=== PATIENT | female | born 1955 | race African-American/Black ===

== ENCOUNTER 2017-11-05 17:23 | Inpatient (IN) | payer MEDICARE ==
[~2017-11-05 17:23] MED LIST: ISOVUE-370 76%-LOCM 1 ML ONE
[2017-11-05] MEDS ORDERED: Dexamethasone 4 MG TAB ONE ×2 (18:42→18:43)
[2017-11-05] MEDS ORDERED: cefTRIAXone\\ROCEPHIN 2 GM in Sodium Chloride 0.9% 100 ML IVPB SCH (18:45)
--- NOTE | 2017-11-05 19:00 | RAD ---
PA AND LATERAL VIEWS CHEST 11/05/17 HISTORY: Cough. Wheezing. FINDINGS: Comparison made with exam of 03/14/15. The heart size is normal. There are patchy opacities in the right upper and left lower lung bones. No pneumothoraces or pleural effusions are seen. IMPRESSION: Findings suspicious for pneumonia. A followup exam after course of antibiotics is recommended. POS: [facility]
[2017-11-05 19:24] LABS: #Eosinphils 0.1 thou/uL (0.0-0.7); #Lymphocytes 4.6 thou/uL (1.20-3.40); #Monocytes 1.2 thou/uL (0.11-0.59); #Neutrophils 5.5 thou/uL (1.40-6.50); %Basophils 0.4 % (0.0-1.0); %Eosinophils 0.6 % (0.0-10.0); %Lymphocytes 40.4 % (21.0-51.0); %Monocytes 10.3 % (0.0-10.0); %Neutrophils 48.4 % (42.0-75.0); Hemoglobin 15.9 g/dL (12.0-16.0); Mean Corpuscular HGB CONC 33.4 g/dL (32.0-36.0); Mean Corpuscular Hemoglobin 30.8 pg (27.0-31.0); Mean Corpuscular Volume 92.2 fl (81.0-99.0); Mean Platelet Volume 7.2 fL (7.4-10.4); Platelet Count 519 thou/uL (130-400); RBC Distribution Width 12.9 % (11.5-14.5); Red Blood Cell (RBC) Count 5.17 mill/uL (4.20-5.40); White Blood Cell (WBC) Count 11.3 thou/uL (4.8-10.8)
[2017-11-05 19:35] LABS: ALT (SGPT) 41 U/L (8-55); AST (SGOT) 30 U/L (5-34); Albumin 4.1 g/dL (3.5-5.0); Alkaline Phosphatase 110 U/L (40-150); Anion Gap 18 mmol/L (10-20); BUN (Urea Nitrogen) 6 mg/dL (9.8-20.1); Bilirubin, Total 0.3 mg/dL (0.2-1.2); Calc. Creatinine Clearance 0 mL/min (70-130); Calcium 10.9 mg/dL (7.8-10.44); Carbon Dioxide 20 mmol/L (22-29); Chloride 103 mmol/L (98-107); Estimated GFR-MDRD 85; Globulin 5.2 g/dL (2.4-3.5); Glucose 143 mg/dL (70-105); Potassium 5.3 mmol/L (3.5-5.1); Protein, Total 9.3 g/dL (6.0-8.3); Sodium 136 mmol/L (136-145)
[2017-11-05 19:41] LABS: Band 9 % (5-11); Eosinophils 1 % (0-10); Lymphocytes 52 % (21-51); MDiff Complete? YES; Monocytes 8 % (0-10); Neutrophil 29 % (42-75); PLT Morphology Comment Appears Increased; RBC Morphology Normal
--- NOTE | 2017-11-05 22:07 | CT ---
CT CHEST WITH IV CONTRAST 11/05/17 HISTORY: Dyspnea, cough, sputum and wheezing. FINDINGS: There is mediastinal lymphadenopathy. There is atelectatic changes in the right upper lobe with obstr uctive process in the right upper lobe bronchus. No pleural or pericardial effusions seen. There is p atchy ground glass infiltrates in the left lower lobe. No pneumothoraces are seen. There are degener ative changes in the spine. Upper abdominal tomograms demonstrate fatty infiltration of the liver. Th ere is evidence of old granulomatous disease in the chest. IMPRESSION: 1. Right upper lobe atelectasis with occlusive process in the right upper lobe bronchus and med iastinal lymphadenopathy. Findings suspicious for malignancy. Bronchoscopy is recommended. 2. Patchy ground glass infiltrates in the left lower lobe. POS: [facility]
[2017-11-05] MEDS ORDERED: Azithromycin 500 MG in Sodium Chloride 0.9% 250 ML 250 ML IVPB SCH (22:30)
[2017-11-05] MEDS ORDERED: Nicotine 14 MG PATCH TOP SCH (22:30)
[2017-11-06] MEDS: Sodium Chloride 0.9% 1,000 ML IV SCH ×2 (00:49→17:50)
[2017-11-06] MEDS ORDERED: cefTRIAXone\\ROCEPHIN 1 GM in Sodium Chloride 0.9% 100 ML IVPB SCH (01:00)
[2017-11-06] MEDS ORDERED: Dextrose 5% in Water 1,000 ML IV PRN (01:33)
[2017-11-06] MEDS ORDERED: Dextrose 50% Abboject 50 ML SYRINGE SLOW IVP PRN (01:33)
[2017-11-06] MEDS: Guaifenesin DM 100-10/5 ML UDCUP PO PRN ×4 (04:00→23:11)
[2017-11-06 04:21] LABS: #Monocytes 0.1 thou/uL (0.11-0.59); #Neutrophils 8.2 thou/uL (1.40-6.50); %Basophils 0.1 % (0.0-1.0); %Eosinophils 0.4 % (0.0-10.0); %Lymphocytes 19.2 % (21.0-51.0); %Monocytes 1.2 % (0.0-10.0); %Neutrophils 79.1 % (42.0-75.0); Hemoglobin 13.5 g/dL (12.0-16.0); Mean Corpuscular HGB CONC 32.8 g/dL (32.0-36.0); Mean Corpuscular Hemoglobin 30.5 pg (27.0-31.0); Platelet Count 448 thou/uL (130-400); RBC Distribution Width 12.8 % (11.5-14.5); Red Blood Cell (RBC) Count 4.44 mill/uL (4.20-5.40); White Blood Cell (WBC) Count 10.3 thou/uL (4.8-10.8)
[2017-11-06 04:30] LABS: Anion Gap 15 mmol/L (10-20); BUN (Urea Nitrogen) 9 mg/dL (9.8-20.1); Calc. Creatinine Clearance 79 mL/min (70-130); Calcium 9.8 mg/dL (7.8-10.44); Carbon Dioxide 20 mmol/L (22-29); Chloride 103 mmol/L (98-107); Estimated GFR-MDRD 65; Glucose 415 mg/dL (70-105); Potassium 4.5 mmol/L (3.5-5.1); Sodium 133 mmol/L (136-145)
[2017-11-06] MEDS: glipiZIDE 5 MG TAB PO SCH ×2 (05:42→16:44)
[2017-11-06] MEDS: HumaLOG 300 UNITS/3 ML VIAL SC PRN ×2 (05:42→16:44)
--- NOTE | 2017-11-06 06:09 | PDOC.FM ---
- Subjective Subjective: Feeling ok this morning. She is still coughing up yellow/white sputum. She denies any blood streaking. She is requesting her home medications to help her sleep, otherwise no complaints or concerns. - Objective MAR Reviewed: Yes Vital Signs & Weight: Vital Signs (12 hours) Temp Pulse Resp BP Pulse Ox 11/06/17 04:40 98.3 F 114 H 17 145/86 H 97 11/06/17 03:37 95 11/05/17 23:45 98.7 F 109 H 18 131/87 95 Weight Weight 87.146 kg I&O: 11/04/17 11/05/17 11/06/17 06:59 06:59 06:59 Intake Total 1080 Balance 1080 Result Diagrams: 11/06/17 03:40 11/06/17 03:40 EKG Reviewed by me: Yes Radiology Reviewed by me: Yes <Maryan Cameron - Last Filed: 11/06/17 11:07> - Objective Vital Signs & Weight: Vital Signs (12 hours) Temp Pulse Resp BP BP Pulse Ox 11/06/17 20:00 98.5 F 122 H 17 143/84 H 93 L 11/06/17 18:34 123 H 16 99 11/06/17 16:00 98.1 F 124 H 18 138/82 96 11/06/17 15:49 121 H 16 11/06/17 12:20 118 H 117/80 11/06/17 11:50 97.2 F L 115 H 20 141/80 H 100 11/06/17 11:38 111 H 16 11/06/17 11:20 98.5 F 121 H 20 122/78 93 L Weight Weight 87.146 kg I&O: 11/05/17 11/06/17 11/07/17 06:59 06:59 06:59 Intake Total 1080 Balance 1080 Result Diagrams: 11/06/17 03:40 11/06/17 03:40 <Dominic Buckley - Last Filed: 11/06/17 21:23> Phys Exam - Physical Examination Constitutional: NAD HEENT: moist MMs diffuse wheezing and rhonchi, R>L tachycardic Gastrointestinal: soft, non-tender, no distention, positive bowel sounds Musculoskeletal: no edema Neurological: non-focal, moves all 4 limbs Psychiatric: normal affect, A&O x 3 Skin: normal turgor, cap refill <2 seconds <Maryan Cameron - Last Filed: 11/06/17 11:07> Dx/Plan (1) Pneumonia Code(s): J18.9 - PNEUMONIA, UNSPECIFIED ORGANISM Status: Acute (2) Diabetes Code(s): E11.9 - TYPE 2 DIABETES MELLITUS WITHOUT COMPLICATIONS Status: Acute (3) Hypertension Code(s): I10 - ESSENTIAL (PRIMARY) HYPERTENSION Status: Acute (4) HLD (hyperlipidemia) Code(s): E78.5 - HYPERLIPIDEMIA, UNSPECIFIED Status: Acute (5) Bipolar 1 disorder Code(s): F31.9 - BIPOLAR DISORDER, UNSPECIFIED Status: Acute - Plan Plan: 1. Pneumonia/Concern for occlusive process - Rocephin and azithromycin - Appreciate Dr. Ford's assistance - Continue IV fluids, antibiotics, duonebs scheduled/PRN and IV solumedrol - Flu neg - BCx pending 2. HTN - Home medications 3. Asymptomatic tachycardia - Will review records regarding prior workup 4. DM - Poorly controlled - Home medications - Mild SSI - Likely need to transition to insulin - Will check a1c - ACHS accuchecks 5. Bipolar d/o - Home medications 6. HLD - Home medications PPX: Lovenox <Maryan Cameron - Last Filed: 11/06/17 11:07> Attending Addendum - Attending Addendum I personally evaluated the patient and discussed the management with Dr. Cameron. I agree with and repeated the History, Examination, Assessment and Plan documented above with any addition or exceptions noted below. Patient s/p bronch with minor hemoptysis, no f/c, no cp/sob. She has diffuse wheezes and crackles but is moving good air. Continue nebs and antibiotics. Await biopsy. If improved in 1-2 days may d/c with appropriate follow up. <Dominic Buckley - Last Filed: 11/06/17 21:23>
[2017-11-06 06:58] LABS: Hemoglobin A1c 7.8 % (4.0-6.0)
--- NOTE | 2017-11-06 08:34 | HP-2 ---
DATE OF ADMISSION: 11/05/2017 DATE OF SERVICE: 11/06/2017 CODE STATUS: Full. ATTENDING: Dr. Keely Wade RESIDENT: Dr. Taylor Quan HISTORIAN: Patient. CHIEF COMPLAINT: Shortness of breath/cough. HISTORY OF PRESENT ILLNESS: A 62-year-old female who presents with shortness of breath and cough over the past 2 weeks. Associated symptoms include nasal congestion and difficulty breathing with walking. She states also that her cough is wet with sputum production of thick yellowish sputum. She endorses a family history of asthma, but has no personal history. She also has a long time personal history of smoking. She did not get her flu shot this year. Endorses some pain with coughing. She also states weight loss from 203 to 184 pounds over the past 2 months, although does state that this was partially intentional as she has been trying to lose weight to get healthier. ER: She received azithromycin and Rocephin. PAST MEDICAL HISTORY: Diabetes type 2, hypertension, bipolar disorder, asymptomatic tachycardia. PAST SURGICAL HISTORY: None. ALLERGIES: No known drug allergies. MEDICATIONS: 1. Lisinopril 2.5 mg daily 2. Metformin 1000 mg b.i.d. 3. Glipizide 5 mg b.i.d. 4. Amlodipine 5 mg daily. 5. Pravastatin 40 mg daily. 6. Sertraline 50 mg daily. 7. Seroquel 600 mg at night. FAMILY HISTORY: Asthma. SOCIAL HISTORY: Tobacco half pack per day for 45 years. Denies alcohol and drug use. REVIEW OF SYSTEMS: GENERAL: No fevers or chills. HEENT: Endorses nasal congestion. RESPIRATORY: Endorses cough, congestion, shortness of breath and dyspnea on exertion. CARDIOVASCULAR: Denies chest pain, palpitations or edema. GASTROINTESTINAL: No nausea, vomiting, diarrhea, constipation. GENITOURINARY: Denies incontinence, dysuria. SKIN: Denies rashes or lesions. MUSCULOSKELETAL: Denies pain or tenderness. NEURO: Denies weakness, numbness, tingling. PSYCHIATRIC: Denies anxiety, depression. PHYSICAL EXAMINATION: VITAL SIGNS: Blood pressure 137/87, pulse 113, respiratory rate 18, T-max 98.7 , pulse ox 100% on room air, current weight 84 kilograms. GENERAL: Alert and oriented x4, no apparent distress, appropriately interactive. EYES: PERRLA, EOMI. Nasal mucosa and oropharynx within normal limits. NECK: Supple. No lymphadenopathy. CARDIOVASCULAR: Regular rate and rhythm. No murmurs, rubs or gallops. RESPIRATORY: Normal effort, no retractions. Diffuse wheezing bilaterally with rhonchi in the bilateral lower lobes. ABDOMEN: Soft, nontender to palpation. Positive bowel sounds in all 4 quadrants. No mass or distension. EXTREMITIES: No clubbing, cyanosis or edema. MUSCULOSKELETAL: Structure within normal limits. NEUROLOGIC: No focal deficits. GCS of 15. PSYCHIATRIC: Appropriate. LABORATORY DATA: 1. CBC: 11.3, 15.5, 47.6, 519. 2. CMP: 136, 5.3, 103, 20, 6.83, 143. 3. AST, ALT, alkaline phosphatase, 34, 110. 4. Calcium, total protein, albumin, 10.9, 4.1, 30. 5. Flu A and B negative. Chest x-ray; right upper lobe and left lower lobe consolidation. CT mediastinal lymphadenopathy. Occlusive process in the right upper lobe bronchus, findings suspicious for malignancy, right upper lobe atelectasis. ASSESSMENT AND PLAN: A 62-year-old female with a past medical history of diabetes, hypertension, and a longtime history of smoking, presents with shortness of breath and cough, admitted for pneumonia, a lung mass suspicious for malignancy and suspected chronic obstructive pulmonary disease exacerbation. 1. Pneumonia. The patient was given azithromycin and Rocephin in the ER. We will continue these antibiotics. We will recheck CBC and BMP in the morning. 2. Lung mass suspicious for malignancy. We will consult Pulmonary in the morning to assess if and when the patient needs bronchoscopy. 3. Suspected chronic obstructive pulmonary disease exacerbation. The patient has never been diagnosed officially of chronic obstructive pulmonary disease; however, we will treat it as such. She has wheezing bilaterally through all lung sosa. We placed her on methylprednisolone IV. As stated above, she is on antibiotics of Rocephin and azithromycin. We will schedule DuoNebs q.4h. and provide albuterol p.r.n. 4. Diabetes type 2. She had an A1c greater than 14 in the clinic recently. We will do Accu-Cheks a.c. and at bedtime, sliding scale insulin, rate and restart her on her home medications. 4. Hypertension. We will restart home medication. 5. History of asymptomatic tachycardia. We will check an EKG. Consider beta oswaldo. 6. Bipolar disorder. We will continue her home medication. DISPOSITION AND LENGTH OF HOSPITAL STAY: 2-3 days. Symptomatic medications will be provided. The history and physical exam as well as management discussed with Dr. Wade. ALISA
[2017-11-06] MEDS ORDERED: Promethazine HCl 25 MG/ML VIAL ONE (08:46)
[2017-11-06] MEDS ORDERED: Fentanyl 100 MCG/2 ML VIAL ONE (08:46)
[2017-11-06] MEDS ORDERED: Midazolam HCl 2 mg/2 ml Vial ONE (08:46)
[2017-11-06] MEDS: Enoxaparin Sodium 40 MG/0.4 ML SYRINGE SC SCH (09:00)
[2017-11-06] MEDS: metFORMIN 500 MG TAB PO SCH ×2 (09:00→16:44)
[2017-11-06] MEDS ORDERED: Lidocaine 4% PF 5 ML AMP NEB SCH (09:00)
[2017-11-06] MEDS ORDERED: Ketamine 50 MG/ML VIAL ONE (10:06)
[2017-11-06] MEDS ORDERED: Lidocaine 1% (PF) 30 ML VIAL ONE (10:09)
--- NOTE | 2017-11-06 11:47 | CON ---
DATE OF CONSULTATION: 11/06/2017 SERVICE: Pulmonary Medicine. REASON FOR CONSULTATION: Pulmonary lesion. HISTORY OF PRESENT ILLNESS: The patient is a 62-year-old -[place] female with a 30-35 pack y ear history of smoking, who presents to the hospital with a 2-week history of increasing shortness of breath and cough. She had an episode of hemoptysis. This brought her to the emergency department. She was found to have atelectasis of the entirety of the right upper lobe with likely endobronchial lesion. There are some minimal air bronchograms that are present beyond the distal obstruction, but for the most part it is fairly dense atelectasis. Pneumonia cannot be excluded. She was placed on a ntibiotics overnight. This morning, she is breathing comfortably on room air and has no specific com plaints. She continues to cough and brings up yellow sputum. PAST MEDICAL HISTORY: 1. Type 2 diabetes mellitus. 2. Hypertension. 3. Bipolar disorder. 4. Tobacco abuse. 5. Tachycardia, chronic. PAST SURGICAL HISTORY: None. ALLERGIES: No known drug allergies. MEDICATIONS: List of her inpatient medications were reviewed. No updates were made at this time. FAMILY HISTORY: Noncontributory. SOCIAL HISTORY: She has a 30-35 pack-year history of smoking. Denies any alcohol or illicit drugs. REVIEW OF SYSTEMS: General, head, ears, eyes, nose, throat, cardiovascular, respiratory, GI, , mus culoskeletal, neurologic, and skin is negative except as mentioned in the HPI. PHYSICAL EXAMINATION: VITAL SIGNS: Afebrile, pulse 104, blood pressure 144/90, respirations 19, saturation 92% on room air . GENERAL: Patient is awake and alert, in no apparent distress. HEENT: Normocephalic, atraumatic. Sclerae are white, conjunctivae pink. Oral mucosa is moist witho ut lesions. NECK: There is no cervical lymphadenopathy. LUNGS: Decent air entry. There is not much in the way of prolonged expiratory phase though she does have rhonchi and wheezing present. It is more of a coarse wheeze indicative of larger airway partia l obstructions. HEART: Tachycardic. Regular. ABDOMEN: Soft, nontender, and nondistended. Bowel sounds are positive. MUSCULOSKELETAL: No cyanosis or clubbing. There is no pitting in the bilateral lower extremities. NEUROLOGIC: Grossly nonfocal. LABORATORY DATA: WBC 10.3, hemoglobin 13.5, platelets 448,000. Basic metabolic profile is essential ly unremarkable. Hemoglobin A1c 7.8, glucose 312. Liver function studies are unremarkable. Influen za A and B are negative. IMAGING: CT of the chest demonstrates atelectasis of the right upper lobe with an apparent endobronc hial lesion at that location. There are air bronchograms distal to this lesion and a postobstructive infiltrate cannot be excluded. Subtle ground glass changes are present. There is subcarinal lympha denopathy as well as precarinal lymphadenopathy identified. I do not see any evidence of more superi or lymphadenopathy. ASSESSMENT: 1. Pulmonary mass. 2. Mediastinal lymphadenopathy. 3. Community-acquired pneumonia. 4. Tobacco abuse. PLAN: We will proceed with bronchoscopy. Hopefully biopsy will be able to tell us what we may be de aling with. I will also try to collect a sample for culture. Pulmonary will continue to follow steve walker this hospital stay.
[2017-11-06] MEDS: Nicotine 14 MG PATCH TD SCH (12:16)
[2017-11-06] MEDS: Lisinopril 2.5 MG TAB PO SCH (12:17)
[2017-11-06] MEDS: Amlodipine 5 MG TAB PO SCH (12:20)
[2017-11-06] MEDS ORDERED: Propofol 200 MG/20 ML VIAL ONE (14:18)
[2017-11-06] MEDS ORDERED: cefTRIAXone\\ROCEPHIN 1 GM, Syringe 0.4 ML in Sterile Water 9.6 ML SLOW IVP SCH (20:00)
[2017-11-06] MEDS: Pravastatin Sodium 40 MG TAB PO SCH (21:48)
[2017-11-06] MEDS ORDERED: Azithromycin 500 MG in Sodium Chloride 0.9% 250 ML 250 ML IVPB SCH (22:00)
[2017-11-07] MEDS: Guaifenesin DM 100-10/5 ML UDCUP PO PRN ×4 (06:45→22:10)
[2017-11-07] MEDS: HumaLOG 300 UNITS/3 ML VIAL SC PRN (07:32)
[2017-11-07] MEDS ORDERED: FLU VACC QS2017-18 36 mo. & older 0.5 ML SYRINGE IM ONE (09:00)
[2017-11-07] MEDS: Lisinopril 2.5 MG TAB PO SCH ×2 (09:07→09:13)
[2017-11-07] MEDS: Amlodipine 5 MG TAB PO SCH (09:07)
[2017-11-07] MEDS: metFORMIN 500 MG TAB PO SCH ×2 (09:07→16:52)
[2017-11-07] MEDS: Enoxaparin Sodium 40 MG/0.4 ML SYRINGE SC SCH (09:07)
[2017-11-07] MEDS: glipiZIDE 5 MG TAB PO SCH ×2 (09:07→16:52)
--- NOTE | 2017-11-07 11:43 | PDOC.FM ---
- Subjective Subjective: Patient reports that she has had increased wheezing and cough since the bronchoscopy. She is not having any SOB or chest pain. Denies N/V. She is eating well. - Objective MAR Reviewed: Yes Vital Signs & Weight: Vital Signs (12 hours) Temp Pulse Resp BP Pulse Ox 11/07/17 09:45 110 H 20 11/07/17 09:13 104 H 11/07/17 09:07 104 H 11/07/17 08:10 98.0 F 101 H 18 117/74 94 L 11/07/17 08:03 98.3 F 104 H 16 11/07/17 06:29 95 11/07/17 06:28 104 H 16 95 11/07/17 04:05 98.3 F 103 H 17 119/75 90 L 11/07/17 02:06 16 11/06/17 23:47 98.6 F 116 H 17 113/74 91 L Weight Weight 87.146 kg I&O: 11/06/17 11/07/17 11/08/17 06:59 06:59 06:59 Intake Total 1080 840 Balance 1080 840 Result Diagrams: 11/06/17 03:40 11/06/17 03:40 <Ada Sanchez - Last Filed: 11/07/17 11:41> - Objective Vital Signs & Weight: Vital Signs (12 hours) Temp Pulse Resp BP Pulse Ox 11/07/17 09:45 110 H 20 11/07/17 09:13 104 H 11/07/17 09:07 104 H 11/07/17 08:10 98.0 F 101 H 18 117/74 94 L 11/07/17 08:03 98.3 F 104 H 16 11/07/17 06:29 95 11/07/17 06:28 104 H 16 95 11/07/17 04:05 98.3 F 103 H 17 119/75 90 L 11/07/17 02:06 16 Weight Weight 87.146 kg I&O: 11/06/17 11/07/17 11/08/17 06:59 06:59 06:59 Intake Total 1080 840 Balance 1080 840 Result Diagrams: 11/06/17 03:40 11/06/17 03:40 <Dominic Buckley - Last Filed: 11/07/17 12:10> Phys Exam - Physical Examination Constitutional: NAD HEENT: moist MMs Respiratory: wheezing present E to A egophony in RUL with decreased breath sounds. Cardiovascular: no significant murmur, no rub tachycardic Gastrointestinal: soft, non-tender, no distention, positive bowel sounds Musculoskeletal: no edema, pulses present Neurological: non-focal, moves all 4 limbs Psychiatric: normal affect, A&O x 3 <Ada Sanchez - Last Filed: 11/07/17 11:41> Dx/Plan (1) Lung mass Code(s): R91.8 - OTHER NONSPECIFIC ABNORMAL FINDING OF LUNG FIELD Status: Acute Plan: Mass of R bronchus, patient has 40 pack year smoking history, concerning for malignancy s/p bronchoscopy with biopsy on 11/06 Patient having wheezing that is likely what appears to be a COPD exacerbation, but does not have a diagnosis of COPD -Dr. Ford consulting, appreciate recs -f/u on pathology -Has been on methyprednisolone, will switch to prednisone. -Continue duonebs (2) Pneumonia Code(s): J18.9 - PNEUMONIA, UNSPECIFIED ORGANISM Status: Acute QualifierTitle: Pneumonia type: due to unspecified organism Laterality: right Lung location: upper lobe of lung Qualified Code(s): J18.1 - Lobar pneumonia, unspecified organism Plan: Post obstructive pneumonia of RUL. Has been on Rocephin and Azithromycin -Will transition to Omnicef plus Azithromycin today (3) Hypertension Code(s): I10 - ESSENTIAL (PRIMARY) HYPERTENSION Status: Acute QualifierTitle: Hypertension type: essential hypertension Qualified Code( s): I10 - Essential (primary) hypertension Plan: Continue home meds (4) Bipolar 1 disorder Code(s): F31.9 - BIPOLAR DISORDER, UNSPECIFIED Status: Acute Plan: Cont home meds (5) Diabetes Code(s): E11.9 - TYPE 2 DIABETES MELLITUS WITHOUT COMPLICATIONS Status: Acute QualifierTitle: Diabetes mellitus type: type 2 Diabetes mellitus complication status: without complication Diabetes mellitus custodial 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 Sanchez. I agree with and repeated the History, Examination, Assessment and Plan documented above with any addition or exceptions noted below. Scant expiratory wheezing, overall comfortable and denies f/c/cp/sob/n/v. Continue tx for presumed CAP and COPD exacerbation. Suspect BC are contaminant. Likely d/c tomorrow. <Dominic Buckley - Last Filed: 11/07/17 12:10>
[2017-11-07] MEDS: Nicotine 14 MG PATCH TD SCH (11:57)
--- NOTE | 2017-11-07 16:26 | PRG ---
DATE OF SERVICE: 11/07/2017 SUBJECTIVE: Ms. Arevalo awake, alert, responsive, having some hemoptysis, cough, and shortness of bree th. PHYSICAL EXAMINATION: VITAL SIGNS: Blood pressure 126/77, respirations 20, pulse 112, temperature 98. CHEST: Decreased breath sounds without any wheezing. CARDIAC: Normal S1-S2. No gallops. ABDOMEN: Soft. No masses. IMPRESSION: 1. Right upper lung mass, status post bronchoscopy. 2. Chronic obstructive pulmonary disease. PLAN: Await path. Otherwise, continue neb treatments, supportive care.
[2017-11-07] MEDS ORDERED: Sodium Chloride Nasal 15 GM TUBE EA NARE PRN ×2 (16:59→22:15)
[2017-11-07] MEDS: Cefdinir 300 MG CAP PO SCH (22:11)
[2017-11-07] MEDS: Acetaminophen 325 MG TAB PO PRN (22:11)
[2017-11-07] MEDS: Pravastatin Sodium 40 MG TAB PO SCH (22:17)
--- NOTE | 2017-11-08 07:41 | PDOC.FM ---
- Subjective Subjective: The patient reports that she is not feeling well today. She coughed up a small amount of blood overnight. She reports worsened wheezing and productive coughing. She is feeling more short of breath. Denies any chest pain. - Objective MAR Reviewed: Yes Vital Signs & Weight: Vital Signs (12 hours) Temp Pulse Resp BP Pulse Ox 11/08/17 06:33 94 18 91 L 11/08/17 04:43 95 11/08/17 01:44 93 18 87 L 11/08/17 00:35 98.4 F 115 H 16 118/69 93 L 11/07/17 21:52 113 H 18 93 L 11/07/17 21:07 98.4 F 114 H 18 115/89 93 L 11/07/17 20:28 112 H 18 95 11/07/17 20:00 98.4 F 114 H 18 Weight Weight 87.146 kg I&O: 11/07/17 11/08/17 11/09/17 06:59 06:59 06:59 Intake Total 840 Balance 840 Result Diagrams: 11/06/17 03:40 11/06/17 03:40 <Ada Sanchez - Last Filed: 11/08/17 07:39> - Objective Vital Signs & Weight: Vital Signs (12 hours) Temp Pulse Resp BP Pulse Ox 11/08/17 11:30 98.2 F 111 H 20 131/83 92 L 11/08/17 11:08 99 18 11/08/17 07:35 98.2 F 104 H 16 133/86 92 L 11/08/17 06:33 94 18 91 L 11/08/17 04:43 95 11/08/17 04:00 98.0 F 112 H 18 142/83 H 93 L Weight Weight 87.146 kg I&O: 11/07/17 11/08/17 11/09/17 06:59 06:59 06:59 Intake Total 1780 Balance 1780 Result Diagrams: 11/06/17 03:40 11/06/17 03:40 <Dominic Buckley - Last Filed: 11/08/17 15:22> Phys Exam - Physical Examination Constitutional: NAD HEENT: moist MMs Respiratory: wheezing present Rhonchi and decreased breath sounds on RUL, E->A egophony Cardiovascular: RRR, no significant murmur, no rub Gastrointestinal: soft, non-tender, no distention, positive bowel sounds Musculoskeletal: no edema, pulses present Neurological: non-focal, moves all 4 limbs Psychiatric: normal affect, A&O x 3 <Ada Sanchez - Last Filed: 11/08/17 07:39> Dx/Plan (1) Lung mass Code(s): R91.8 - OTHER NONSPECIFIC ABNORMAL FINDING OF LUNG FIELD Status: Acute Plan: Mass of R bronchus, patient has 40 pack year smoking history, concerning for malignancy s/p bronchoscopy with biopsy on 11/06 Patient having wheezing that is likely what appears to be a COPD exacerbation, but does not have a diagnosis of COPD -Dr. Ford consulting, appreciate recs -f/u on pathology -Continue prednisone -Continue duonebs (2) Pneumonia Code(s): J18.9 - PNEUMONIA, UNSPECIFIED ORGANISM Status: Acute QualifierTitle: Pneumonia type: due to unspecified organism Laterality: right Lung location: upper lobe of lung Qualified Code(s): J18.1 - Lobar pneumonia, unspecified organism Plan: Post obstructive pneumonia of RUL seen on x-ray and CT scan Has been on Rocephin one day and Azithromycin -Omnicef day 2, Azithromycin day 2 (3) Hypertension Code(s): I10 - ESSENTIAL (PRIMARY) HYPERTENSION Status: Acute QualifierTitle: Hypertension type: essential hypertension Qualified Code( s): I10 - Essential (primary) hypertension Plan: Continue home meds (4) Bipolar 1 disorder Code(s): F31.9 - BIPOLAR DISORDER, UNSPECIFIED Status: Acute Plan: Cont home meds (5) Diabetes Code(s): E11.9 - TYPE 2 DIABETES MELLITUS WITHOUT COMPLICATIONS Status: Acute QualifierTitle: Diabetes mellitus type: type 2 Diabetes mellitus complication status: without complication Diabetes mellitus long chain dyeing machine operator insulin use: without half-way use Qualified Code(s): E11.9 - Type 2 diabetes mellitus without complications Plan: Continue home meds -Accuchecks (6) HLD (hyperlipidemia) Code(s): E78.5 - HYPERLIPIDEMIA, UNSPECIFIED Status: Acute QualifierTitle: Hyperlipidemia type: unspecified Qualified Code(s): E78.5 - Hyperlipidemia, unspecified Plan: Continue home meds <Ada Sanchez - Last Filed: 11/08/17 07:39> Attending Addendum - Attending Addendum I personally evaluated the patient and discussed the management with Dr. Sanchez. I agree with and repeated the History, Examination, Assessment and Plan documented above with any addition or exceptions noted below. She feels her breathing and coughing is worse this morning. No cp. No orthopnea or PND. Acute respiratory failure likely 2/2 postobstructive PNA + undiagnosed COPD, worse today, steroids + nebs Lung mass - await biopsy DM - goal 140-180 <Dominic Buckley - Last Filed: 11/08/17 15:22>
[2017-11-08] MEDS ORDERED: predniSONE 20 MG TAB PO SCH (08:00)
[2017-11-08] MEDS: Cefdinir 300 MG CAP PO SCH ×2 (08:46→21:45)
[2017-11-08] MEDS: Lisinopril 2.5 MG TAB PO SCH (08:48)
[2017-11-08] MEDS: metFORMIN 500 MG TAB PO SCH ×2 (08:48→17:57)
[2017-11-08] MEDS: Azithromycin 250 MG TAB PO SCH (08:49)
[2017-11-08] MEDS: Amlodipine 5 MG TAB PO SCH (08:49)
[2017-11-08] MEDS: Enoxaparin Sodium 40 MG/0.4 ML SYRINGE SC SCH (08:50)
[2017-11-08] MEDS: Nicotine 14 MG PATCH TD SCH (08:50)
[2017-11-08] MEDS: glipiZIDE 5 MG TAB PO SCH ×2 (08:50→17:57)
[2017-11-08] MEDS: Guaifenesin DM 100-10/5 ML UDCUP PO PRN ×3 (09:05→19:13)
--- NOTE | 2017-11-08 12:24 | RAD ---
2 VIEWS CHEST: Date: 11/08/17 COMPARISON: 11/05/17. HISTORY: Right upper lobe pneumonia, hemoptysis, bronchoscopy. FINDINGS: There is stable shift of the mediastinal structures to the right. There is no pneumothorax or pleural fluid. There is no alveolar edema. There is hazy increased density in the right hilar region with hazy density also noted in the right u pper lobe region. This suggests right upper lobe collapse, possibly on the basis of an obstructive le ann-marie within the right hilum given increased right hilar density. IMPRESSION: Stable appearance of the chest demonstrating right hilar and right upper lobe opacity suspicious for underlying right hilar lesion and right upper lobe collapse on the basis of an obstructive process. Malignancy is the primary concern POS: [facility]
--- NOTE | 2017-11-08 14:29 | PRG ---
DATE OF SERVICE: 11/08/2017 SUBJECTIVE: Mickey is still complaining of shortness of breath, coughing large amount of sputum and b loody. OBJECTIVE: VITAL SIGNS: Blood pressure 131/80, sats are 92%, temperature 98 and respirations 20. CHEST: Extensive rhonchi, wheezing, crackles. CARDIAC: Normal S1 and S2. No gallops. IMPRESSION: Chronic obstructive pulmonary disease, bronchitis and lung mass. PLAN: P.o. prednisone has been initiated. Continue neb treatments, supportive care. Await results of the pathology.
[2017-11-08] MEDS: predniSONE 20 MG TAB PO SCH (21:45)
[2017-11-08] MEDS: Pravastatin Sodium 40 MG TAB PO SCH (21:45)
[2017-11-09] MEDS: Guaifenesin DM 100-10/5 ML UDCUP PO PRN ×3 (08:05→20:18)
[2017-11-09] MEDS: Lisinopril 2.5 MG TAB PO SCH (08:06)
[2017-11-09] MEDS: Amlodipine 5 MG TAB PO SCH (08:06)
[2017-11-09] MEDS: predniSONE 20 MG TAB PO SCH ×2 (08:06→20:19)
[2017-11-09] MEDS: glipiZIDE 5 MG TAB PO SCH ×2 (08:07→16:35)
[2017-11-09] MEDS: Azithromycin 250 MG TAB PO SCH (08:07)
[2017-11-09] MEDS: metFORMIN 500 MG TAB PO SCH ×2 (08:07→16:35)
[2017-11-09] MEDS: Cefdinir 300 MG CAP PO SCH ×2 (08:09→20:19)
[2017-11-09] MEDS: Enoxaparin Sodium 40 MG/0.4 ML SYRINGE SC SCH (08:09)
[2017-11-09] MEDS: Nicotine 14 MG PATCH TD SCH (08:10)
--- NOTE | 2017-11-09 09:25 | PDOC.FM ---
- Subjective Subjective: Pt reports she is feeling better today, occasional cough, minimal SOB. Denies CP , NVDC, edema, palpitations. She does state she occasionally feels heart race, but this has been occuring for a while and she denies being symptomatic during these episodes. - Objective Vital Signs & Weight: Vital Signs (12 hours) Temp Pulse Resp BP Pulse Ox 11/09/17 08:33 108 H 20 96 11/09/17 07:35 98.6 F 85 18 122/82 94 L 11/09/17 05:35 97 11/09/17 02:43 89 18 97 11/09/17 00:52 98.5 F 110 H 20 112/75 95 11/08/17 22:39 130 H 18 98 11/08/17 22:02 98.7 F 117 H 18 144/83 H 94 L 11/08/17 21:26 124 H 18 92 L Weight Weight 87.146 kg I&O: 11/08/17 11/09/17 11/10/17 06:59 06:59 06:59 Intake Total 1780 1280 Balance 1780 1280 Result Diagrams: 11/06/17 03:40 11/06/17 03:40 <Demetrius Keller - Last Filed: 11/09/17 09:23> - Objective Vital Signs & Weight: Vital Signs (12 hours) Temp Pulse Resp BP Pulse Ox 11/09/17 12:00 98.5 F 107 H 21 H 125/82 93 L 11/09/17 11:02 112 H 20 98 11/09/17 08:33 108 H 20 96 11/09/17 08:00 98.6 F 85 18 11/09/17 07:35 98.6 F 85 18 122/82 94 L 11/09/17 05:35 97 Weight Weight 87.146 kg I&O: 11/08/17 11/09/17 11/10/17 06:59 06:59 06:59 Intake Total 1780 1280 Balance 1780 1280 Result Diagrams: 11/06/17 03:40 11/06/17 03:40 <Milla Mckay - Last Filed: 11/09/17 15:31> Phys Exam - Physical Examination Constitutional: NAD HEENT: PERRLA conjuncticval injection Neck: no nodes, no JVD Respiratory: no rales, wheezing present expiratory wheezes, diffuse rhonchi Cardiovascular: RRR, no significant murmur, no rub Gastrointestinal: soft, non-tender, no distention, positive bowel sounds Musculoskeletal: no edema, pulses present Neurological: non-focal, moves all 4 limbs <Demetrius Keller - Last Filed: 11/09/17 09:23> Dx/Plan (1) Lung mass Code(s): R91.8 - OTHER NONSPECIFIC ABNORMAL FINDING OF LUNG FIELD Status: Acute Plan: bronch and bx performed, results pending, will f/u with pt if path results before dc (2) Pneumonia Code(s): J18.9 - PNEUMONIA, UNSPECIFIED ORGANISM Status: Acute QualifierTitle: Pneumonia type: due to unspecified organism Laterality: right Lung location: upper lobe of lung Qualified Code(s): J18.1 - Lobar pneumonia, unspecified organism Plan: post-obstructive continue omnicef and azithromycin, nebs and steroids (3) TSH elevation Code(s): R94.6 - ABNORMAL RESULTS OF THYROID FUNCTION STUDIES Status: Acute Plan: start synthroid at 112mcg/day (4) Bipolar 1 disorder Code(s): F31.9 - BIPOLAR DISORDER, UNSPECIFIED Status: Acute Plan: continue home medications sertraline, seroquel (5) Hypertension Code(s): I10 - ESSENTIAL (PRIMARY) HYPERTENSION Status: Acute QualifierTitle: Hypertension type: essential hypertension Qualified Code( s): I10 - Essential (primary) hypertension Plan: continue amlodipine, lisinopril (6) HLD (hyperlipidemia) Code(s): E78.5 - HYPERLIPIDEMIA, UNSPECIFIED Status: Acute QualifierTitle: Hyperlipidemia type: unspecified Qualified Code(s): E78.5 - Hyperlipidemia, unspecified Plan: continue statin (7) Diabetes Code(s): E11.9 - TYPE 2 DIABETES MELLITUS WITHOUT COMPLICATIONS Status: Acute QualifierTitle: Diabetes mellitus type: type 2 Diabetes mellitus complication status: without complication Diabetes mellitus termite exterminator helper insulin use: without termite exterminator helper use Qualified Code(s): E11.9 - Type 2 diabetes mellitus without complications Plan: continue home meds <Demetrius Keller - Last Filed: 11/09/17 09:23> Attending Addendum - Attending Addendum I personally evaluated the patient and discussed the management with Dr. Krishna I agree with the History, Examination, Assessment and Plan documented above with any addition or exceptions noted below- Patient feeling better; decreased SOB and cough. Afebrile VSS A/P: 1) RUL Pneumonia- postobstructive- continue po antibiotics. 2) Bronchial mass- pathology pending. 3) Hypothyroidism- start levothyroxine. 4) COPD- arrange for nebulizer for home; continue current meds. 5 ) DM- stable. <Milla Mckay - Last Filed: 11/09/17 15:31>
[2017-11-09] MEDS: Acetaminophen 325 MG TAB PO PRN (13:14)
[2017-11-09] MEDS ORDERED: Levothyroxine Sodium 100 MCG TAB PO SCH (15:00)
[2017-11-09] MEDS: Fluticasone Propionate Nasal Spray 16 gm Bottle NASAL SCH (16:32)
[2017-11-09 16:35] LABS: Free T4 (Free Thyroxine) 0.75 ng/dL (0.70-1.48)
--- NOTE | 2017-11-09 17:17 | PRG ---
DATE OF SERVICE: 11/09/2017 SERVICE: Pulmonary Medicine. INTERVAL HISTORY: The patient is doing fine from a respiratory standpoint. She is breathing comfort ably. She has already been told the results of her biopsy. As such, she was upgoing for a walk to c lear her brain. Otherwise, there has been no interval change to her condition. PHYSICAL EXAMINATION: VITAL SIGNS: Afebrile, pulse 109, blood pressure 134/83, respirations 20, saturation 94% on room air . GENERAL: The patient is awake, alert, no apparent distress. LUNGS: Excellent air entry. There is no prolonged expiratory phase, wheezing, rhonchi, or crackles. HEART: Normal rate, regular. ABDOMEN: Soft, nontender, nondistended. Bowel sounds are positive. MUSCULOSKELETAL: No cyanosis or clubbing. No pitting in the bilateral lower extremities. NEUROLOGIC: Grossly nonfocal. LABORATORY DATA: TSH was low. The free T3 is low, but the T4 is normal. Respiratory culture and bl ood cultures were unremarkable today. LABORATORIES: 1. Cytology specimen was consistent with rare malignant cells. Those cells were consistent with squ amous cell carcinoma. 2. Endobronchial biopsies were consistent with moderately differentiated squamous cell carcinoma. ASSESSMENT: 1. Squamous cell carcinoma of the lung. 2. Mediastinal lymphadenopathy. 3. Community-acquired pneumonia. 4. Tobacco abuse, hopefully resolved. PLAN: Oncology consultation will be placed. We will also get an MRI of the brain. She will likely require PET scan in outpatient setting. If no distal metastatic disease is identified for sampling, she will likely need to undergo mediastinoscopy, or an endoscopic bronchial ultrasound to stage her o ut. I will be available in the outpatient setting if this is required. Please call with additional questions or concerns. At this point, she has no further ongoing requirements for inpatient pulmonar y or critical care opinion.
--- NOTE | 2017-11-09 17:48 | EKG ---
Test Reason : Blood Pressure : / mmHG Vent. Rate : 122 BPM Atrial Rate : 122 BPM P-R Int : 132 ms QRS Dur : 074 ms QT Int : 312 ms P-R-T Axes : 061 073 057 degrees QTc Int : 444 ms Sinus tachycardia Biatrial enlargement Abnormal ECG When compared with ECG of 06-NOV-2017 07:05, (Unconfirmed) No significant change was found Confirmed by ERROL SWEENEY, . SJunaid (4) on 11/09/2017 5:47:30 PM Referred By: Confirmed By:DR. Topher NORTON MD
[2017-11-09] MEDS: Pravastatin Sodium 40 MG TAB PO SCH (20:18)
--- NOTE | 2017-11-09 22:18 | CON ---
DATE OF CONSULTATION: 11/09/2017 REASON FOR CONSULTATION: Squamous cell carcinoma of the lung. HISTORY OF PRESENT ILLNESS: Ms. Arevalo is a 62-year-old -[place] female with a [id number] history of smoking who presented to the hospital for increasing shortness of breath and cough over the past week. She did have mild hemoptysis, but she denies any weight loss. She had a CT scan of her chest which showed mediastinal lymphadenopathy. There was atelectasis of the right upper lobe with an obstructive process of the right upper lobe bronchus. There were no other lesions noted. Dr. Ford performed a bronchoscopy. Pathology returned moderately differentiated non-small cell squamous cell carcinoma. The patient has been treated for pneumonia and is now feeling well and ready for discharge in the next 24 hours. PAST MEDICAL HISTORY: 1. Diabetes mellitus type 2. 2. Hypertension. 3. Bipolar disease. 4. Hypothyroidism. 5. Tobacco abuse. PAST SURGICAL HISTORY: None. ALLERGIES: No known drug allergies. HOME MEDICATIONS: 1. Amlodipine 5 mg daily. 2. Glipizide 5 mg b.i.d. 3. Metformin 1000 mg b.i.d. 4. Pravachol 40 mg daily. 5. Quetiapine fumarate 600 mg daily. 6. Sertraline 50 mg daily. FAMILY HISTORY: Noncontributory. SOCIAL HISTORY: , lives with her spouse. No alcohol, tobacco, or illicit drug use. REVIEW OF SYSTEMS: Constitutional: No fever, chills, night sweats. Eyes: No blurred or double vision. ENT: No pain, hoarseness, sore throat, or dysphagia. Cardiovascular: No chest pain, palpitations, or syncope. Respiratory: Positive shortness of breath, cough, or hemoptysis. Gastrointestinal: No nausea, vomiting, or abdominal pain. Positive for diarrhea. Skin: There is no rash. Hematological: There is no petechia or purpura. Neurological: Nonfocal. Lymphatic: There is no palpable lymphadenopathy. Psychiatric: The patient is alert and oriented and appropriate. PERTINENT LABORATORY AND X-RAYS: Current WBCs are 10.3, hemoglobin 13.5, hematocrit 41.2, platelet count 448,000, 80% neutrophils, 20% lymphocytes. Sodium is 133, potassium 4.5, chloride 103, CO2 is 20, BUN is 9, creatinine is 1.04, calcium is 9.8, total bilirubin is 0.3, AST 30, ALT is 41, alkaline phosphatase is 110. Serum total protein 9.3, albumin 4.1, globulin 5.2. TSH is 9.3420. Radiology per HPI. ASSESSMENT PLAN: 1. Non-small cell carcinoma, squamous cell type. 2. Tobacco abuse. 3. Pneumonia. DISCUSSION: Patient is a candidate for chemotherapy treatment. We will complete staging with MRI brain in the inpatient setting. We will try to obtain a PET scan as an outpatient. She has my clinic information and she will call to make a followup appointment. Thank you for the consult. We will be happy to take care of this very pleasant lady. ALISA
[2017-11-10] MEDS: Guaifenesin DM 100-10/5 ML UDCUP PO PRN ×3 (03:17→15:26)
[2017-11-10] MEDS: HumaLOG 300 UNITS/3 ML VIAL SC PRN (05:40)
[2017-11-10] MEDS ORDERED: Levothyroxine Sodium 100 MCG TAB PO SCH (06:00)
--- NOTE | 2017-11-10 07:09 | OP ---
DATE OF PROCEDURE: 11/06/2017 SERVICE: Pulmonary Medicine. PROCEDURE: Fiberoptic bronchoscopy with: 1. Visual airway inspection. 2. Endobronchial brushing from the right upper lobe. 3. Endobronchial biopsy from the right upper lobe. 4. Bronchial washing from the right upper lobe PREPROCEDURE DIAGNOSES: 1. Atelectasis of the right upper lobe. 2. Endobronchial mass. PROCEDURE MEDICAID BUSINESS ANALYST: Melquiades Ford M.D. MEDICATIONS USED: For list of medications, please refer to anesthesia documentation. PREANESTHESIA ASSESSMENT: H and P had been performed. The patient's medications and allergies were reviewed. Informed consent was obtained after discussing the risks, benefits, and rationale for perf orming the procedure as well as alternative options. DESCRIPTION OF PROCEDURE: Time out was performed, identifying the correct procedure and patient with name and date of . Topical anesthesia was applied to the nose and posterior oropharynx. A gaby gnostic fiberoptic bronchoscope was introduced through the right naris. The vocal cords were visuali zed and 1% lidocaine was topically sprayed under the cords. The bronchoscope was advanced into the t rachea where additional aliquots of lidocaine were applied. A tracheobronchial tree inspection was c arried out with clear identification of the left upper lobe, lingula, and left lower lobe. There was a large endobronchial mass that was coming out of the right upper lobe, which completely obliterated any distal evaluation there. There was a 70% occlusion of the right bronchus intermedius. I could pass the bronchoscope distal to this lesion. Everything beyond that was identified including the rig ht middle lobe, superior segment of the right lower lobe, and the entirety of the right lower lobe. Outside of the endobronchial mass, anatomy was normal to the segmental level. Bronchioalveolar lavag e was obtained from the right lung. Endobronchial brushings and endobronchial biopsies were obtained from the right upper lobe. Hemostasis was verified and the bronchoscope was subsequently removed fr om the patient. FINDINGS: 1. Vocal cords were normal in motility and appearance. 2. Endobronchial mass emanated from the right upper lobe with 100% obliteration of that airway. No instruments could be passed distal to this into the right upper lobe. There was 70% occlusion of the right bronchus intermedius, but the bronchoscope was successfully passed distal to this lesion. SECRETIONS: Moderate and white. SPECIMENS OBTAINED: BAL, brushings, and endobronchial biopsy for pathology. COMPLICATIONS: None. ESTIMATED BLOOD LOSS: 5 mL. FLUOROSCOPY TIME: None. DISPOSITION: The patient will be transitioned back to her floor after she meets criteria.
[2017-11-10] MEDS: Lisinopril 2.5 MG TAB PO SCH (08:01)
[2017-11-10] MEDS: Cefdinir 300 MG CAP PO SCH (08:01)
[2017-11-10] MEDS: Amlodipine 5 MG TAB PO SCH (08:02)
[2017-11-10] MEDS: glipiZIDE 5 MG TAB PO SCH (08:02)
[2017-11-10] MEDS: Azithromycin 250 MG TAB PO SCH (08:02)
[2017-11-10] MEDS: metFORMIN 500 MG TAB PO SCH (08:02)
[2017-11-10] MEDS: Enoxaparin Sodium 40 MG/0.4 ML SYRINGE SC SCH (08:03)
[2017-11-10] MEDS: predniSONE 20 MG TAB PO SCH (08:03)
[2017-11-10] MEDS: Fluticasone Propionate Nasal Spray 16 gm Bottle NASAL SCH (08:12)
[2017-11-10] MEDS: Nicotine 14 MG PATCH TD SCH (08:12)
--- NOTE | 2017-11-10 10:39 | PDOC.FM ---
- Subjective Subjective: No acute events overnight. Pt denies cp, sob, nvdc. Has spoken with oncology and pulm regarding continued medical care. - Objective Vital Signs & Weight: Vital Signs (12 hours) Temp Pulse Resp BP BP Pulse Ox 11/10/17 08:02 96 138/93 H 11/10/17 08:01 96 138/93 H 11/10/17 07:52 103 H 14 95 11/10/17 07:50 98.2 F 96 20 138/93 H 94 L 11/10/17 03:31 98.1 F 105 H 16 113/72 97 11/10/17 01:44 115 H 15 94 L 11/09/17 23:35 98.7 F 109 H 18 110/65 92 L Weight Weight 87.146 kg I&O: 11/09/17 11/10/17 11/11/17 06:59 06:59 06:59 Intake Total 1280 1250 Balance 1280 1250 Result Diagrams: 11/06/17 03:40 11/06/17 03:40 <Demetrius Keller - Last Filed: 11/10/17 10:37> - Objective Vital Signs & Weight: Vital Signs (12 hours) Temp Pulse Resp BP BP Pulse Ox 11/10/17 08:30 98.2 F 96 20 94 L 11/10/17 08:02 96 138/93 H 11/10/17 08:01 96 138/93 H 11/10/17 07:52 103 H 14 95 11/10/17 07:50 98.2 F 96 20 138/93 H 94 L 11/10/17 03:31 98.1 F 105 H 16 113/72 97 11/10/17 01:44 115 H 15 94 L Weight Weight 87.146 kg I&O: 11/09/17 11/10/17 11/11/17 06:59 06:59 06:59 Intake Total 1280 1250 Balance 1280 1250 Result Diagrams: 11/06/17 03:40 11/06/17 03:40 <Milla Mckay - Last Filed: 11/10/17 12:00> Phys Exam - Physical Examination Constitutional: NAD HEENT: PERRLA, sclera anicteric Neck: no nodes, no JVD Respiratory: no wheezing, no rales, no rhonchi crackles in lung bases b/l, otherwise clear Cardiovascular: RRR, no significant murmur, no rub Gastrointestinal: soft, non-tender, no distention, positive bowel sounds Musculoskeletal: no edema, pulses present Neurological: non-focal, moves all 4 limbs <Demetrius Keller - Last Filed: 11/10/17 10:37> Dx/Plan (1) Lung mass Code(s): R91.8 - OTHER NONSPECIFIC ABNORMAL FINDING OF LUNG FIELD Status: Acute Plan: SCC, onc consulted, will have MRI brain today and need continued op f/u onc consult, appreciate recs pulm consulted, appreciate recs medically stable (2) Pneumonia Code(s): J18.9 - PNEUMONIA, UNSPECIFIED ORGANISM Status: Acute QualifierTitle: Pneumonia type: due to unspecified organism Laterality: right Lung location: upper lobe of lung Qualified Code(s): J18.1 - Lobar pneumonia, unspecified organism Plan: post-obstructive continue omnicef and azithromycin, nebs and steroids stable for DC (3) TSH elevation Code(s): R94.6 - ABNORMAL RESULTS OF THYROID FUNCTION STUDIES Status: Acute Plan: start synthroid at 100mcg/day will need op f/u free T3 decreased and T4 low normal stable for dc, OP f/u (4) Bipolar 1 disorder Code(s): F31.9 - BIPOLAR DISORDER, UNSPECIFIED Status: Acute Plan: continue home medications sertraline, seroquel (5) Hypertension Code(s): I10 - ESSENTIAL (PRIMARY) HYPERTENSION Status: Acute QualifierTitle: Hypertension type: essential hypertension Qualified Code( s): I10 - Essential (primary) hypertension Plan: continue amlodipine, lisinopril (6) HLD (hyperlipidemia) Code(s): E78.5 - HYPERLIPIDEMIA, UNSPECIFIED Status: Acute QualifierTitle: Hyperlipidemia type: unspecified Qualified Code(s): E78.5 - Hyperlipidemia, unspecified Plan: continue statin (7) Diabetes Code(s): E11.9 - TYPE 2 DIABETES MELLITUS WITHOUT COMPLICATIONS Status: Acute QualifierTitle: Diabetes mellitus type: type 2 Diabetes mellitus complication status: without complication Diabetes mellitus fpc insulin use: without terminal manager use Qualified Code(s): E11.9 - Type 2 diabetes mellitus without complications Plan: continue home meds, BS well controlled at this time stable for DC, OP f/u - Plan Plan: CM consulted for home medications/medical supplies and possible home O2 DC today after MRI brain <Demetrius Keller - Last Filed: 11/10/17 10:37> Attending Addendum - Attending Addendum I personally evaluated the patient and discussed the management with Dr. Keller I agree with the History, Examination, Assessment and Plan documented above with any addition or exceptions noted below- Patient without complaints. Denies any SOB/CP. Afebrile VSS. A/P: 1) Post-obstructive pneumonia- improved; on po abx/nebs; stable for discharge. 2) Squamous cell lung cancer- appreciate Oncology assistance; plan for MRI brain today to complete staging and discharge home with follow-up. Will need PET scan as outpatient. <Milla Mckay - Last Filed: 11/10/17 12:00>
--- NOTE | 2017-11-10 12:02 | MRI ---
BRAIN MRI WITH AND WITHOUT CONTRAST: History: History of lung cancer with clinical evaluation for metastatic disease. FINDINGS: There is a cavitary enhancing lesion of the left frontal lobe inferiorly. Mass measures up to 2.8 cm in diameter. There is a moderate region of surrounding vasogenic edema of the left frontal lobe. Mini mal effacement of the left frontal horn is present. There is also slight rightward midline shift at t he level of the septum pellucidum and inferior frontal lobes. There is mild chronic microvascular isc hemic disease. No acute territorial infarction. No evidence of intracranial hemorrhagic susceptibilit y. 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 IMPRESSION: 1. Enhancing cavitary lesion in the inferior left frontal lobe is most consistent with metastatic les ion. 2. Mild degree of adjacent midline shift, to the right of midline, as result of mass effect with surr ounding moderate vasogenic edema. POS: [facility]
[2017-11-10 16:52] VITALS: BP 127/81; TEMP 97.7
[2017-11-10] MEDS ORDERED: Dexamethasone 4 MG TAB PO SCH (17:00)
--- NOTE | 2017-11-11 14:43 | DIS-2 ---
LOCATION: [place], [place]. DATE OF ADMISSION: 11/05/2017 DATE OF DISCHARGE: 11/10/2017 RESIDENT PHYSICIAN: Demetrius Keller DO ADMITTING ATTENDING: Dominic Buckley MD DISCHARGE ATTENDING: Milla Mckay M.D. CONSULTATIONS: 1. Pulmonology, Dr. Melquiades Ford. 2. Hematology/Oncology, Samantha Jimenez consulted on 11/09/2017. PROCEDURES: 1. Chest x-ray done on 11/05/2017 showed findings suspicious for pneumonia. Followup exam after a c ourse of antibiotics is recommended. 2. Chest CT done on 11/05/2017 showed right upper lobe atelectasis with occlusive processes in the r ight upper lobe bronchus and mediastinal lymphadenopathy. Findings suspicious for malignancy. Bron hoscopy was recommended. There was additionally patchy ground glass infiltrates in the left lower lo be. 3. Chest x-ray done on 11/08/2017 showed stable appearance of the chest demonstrating right hilar an d right upper lobe opacity suspicious for underlying right hilar lesion and right upper lobe collapse on the basis of obstructive process. Malignancy is a primary concern. 4. Brain MRI done on 11/10/2017 showed an enhancing cavitary lesion in the inferior left frontal lob e most consistent with metastatic lesion. There is a mild degree of adjacent midline shift to the ri ght of midline as well as resultant mass effect with surrounding moderate vasogenic edema. 5. The patient had a bronchoscopy done on 11/07/2017. PRIMARY DIAGNOSIS: Metastatic stage IV squamous cell carcinoma. SECONDARY DIAGNOSES: 1. Diabetes. 2. Hyperglycemia. 3. Pneumonia. 4. Hypertension. 5. Hyperlipidemia. 6. Bipolar 1 disorder. 7. TSH elevation. DISCHARGE MEDICATIONS: 1. Amlodipine 5 mg daily. 2. Azithromycin 250 mg daily. 3. Benazepril 20 mg daily. 4. Cefdinir 300 mg p.o. b.i.d. 5. Dexamethasone 4 mg p.o. b.i.d. with meals. 6. Flonase 1 gram nasal daily. 7. Glipizide 5 mg p.o. b.i.d. 8. Guaifenesin 50 mg p.o. q.4 hours. 9. Lantus 30 units subcu b.i.d. 10. Synthroid 100 mcg daily. 11. Lisinopril 2.5 mg daily. 12. Metformin 1000 mg b.i.d. 13. Pravastatin 40 mg at bedtime. 14. Prednisone 40 mg daily. 15. Seroquel 600 mg at bedtime. 16. Sertraline 50 mg daily. DISCONTINUED MEDICATIONS: None. HISTORY OF PRESENT ILLNESS AND HOSPITAL COURSE: The patient is a 62-year-old female who originally p resented with increasing shortness of breath, was noted to have what was thought to be pneumonia on i nitial chest x-ray. However, CT showed a mass in the right upper lobe which was subsequently biopsie d and found to be squamous cell carcinoma. The patient was treated for obstructive pneumonia, receiv ed a full course of antibiotics. Additionally, there is a brain MRI done the day prior to discharge which unfortunately showed a metastatic 2.8 cm lesion in the left frontal lobe. The patient was seen by Oncology following the primary diagnosis of squamous cell carcinoma of the lung and the brain MRI was subsequently ordered. She was instructed to follow up on an outpatient basis with primary care physician in addition to Hematology/Oncology and Pulmonology. Additionally, she will likely meet [facility] in the coming weeks for the metastatic lesion to her brain. Although the yulissa t had a 2.8 cm lesion with a midline shift, she showed no focal neurologic deficits throughout her en tire stay. DISPOSITION: The patient left the hospital in stable condition. DISCHARGE INSTRUCTIONS: 1. Location: The patient discharged home. 2. Diet: Heart healthy. 3. Activity: Ad tere. 4. Followup: Follow up with primary care provider in 3-4 days as well as Hematology/Oncology in 3-4 days. Follow up with Pulmonology in 2-3 weeks.
== END 2017-11-10 17:05 | disposition home or self-care (01) | DRG 166 ==
LOC: ERS 17:23 → SURG B 22:10
PROVIDERS: ADMIT Student in an Organized Health Care Education/Training Program; ATTEND Student in an Organized Health Care Education/Training Program
PROC: 0B9C8ZX Drainage of Right Upper Lung Lobe, Via Natural or Artificial Opening Endoscopic, Diagnostic (ICD-10-PCS; principal; 2017-11-06)
PROC: 0BDK8ZX Extraction of Right Lung, Via Natural or Artificial Opening Endoscopic, Diagnostic (ICD-10-PCS; 2017-11-06)
DX: C34.11 Malignant neoplasm of upper lobe, right bronchus or lung (principal); J18.9 Pneumonia, unspecified organism; J96.00 Acute respiratory failure, unspecified whether with hypoxia or hypercapnia; J98.11 Atelectasis; J44.1 Chronic obstructive pulmonary disease with (acute) exacerbation; E11.9 Type 2 diabetes mellitus without complications; F17.210 Nicotine dependence, cigarettes, uncomplicated; I10 Essential (primary) hypertension; F31.9 Bipolar disorder, unspecified; Z79.01 Long term (current) use of anticoagulants; R59.0 Localized enlarged lymph nodes; R00.0 Tachycardia, unspecified; E78.5 Hyperlipidemia, unspecified; E03.9 Hypothyroidism, unspecified
CPT/HCPCS: 36415; 36416; 70553; 71046; 71260; 80048; 80053; 83036; 84439; 84443; 84481; 85025; 87040; 87070; 87149; 87205; 88112; 88305; 88313; 88341; 88342; 90471; 90682; 93005; 93010; 94640; 96365; 96367; 99406; A4216; G0008; J0456; J0696; J1650; J2001; J2250; J2550; J2704; J2920; J3010; J7050; J7506; J7620; J8540; Q2036

== ENCOUNTER 2017-11-27 11:15 | Inpatient (IN) | payer MEDICARE ==
[2017-12-01] MEDS ORDERED: CEFAZOLIN/Water 2 GM/20 ML SYRINGE ONE (09:47)
[2017-12-01] MEDS ORDERED: Midazolam HCl 2 mg/2 ml Vial ONE (10:37)
--- NOTE | 2017-12-01 11:05 | MRI ---
MRI BRAIN WITH AND WITHOUT CONTRAST: DATE: 12-01-17 HISTORY: 62-year-old female with C79.31 brain tumor. Pre-operative stereotactic brain MRI. COMPARISON: MRI 11-10-17 TECHNIQUE: Multiple sequences obtained in axial, sagittal, and coronal planes; pre and post IV injection of gado linium-based contrast agent: 17 ml MultiHance FINDINGS: At the anterior inferior aspect of the left frontal lobe, there is an approximately 3.7 x 2.9 x 2.7 c m intraaxial mass with heterogeneous enhancement, and nonenhancing central necrotic portion. The silas rity of the tumor volume is T2 and FLAIR heterogeneously isointense to brain parenchyma and enhances, while there are cystic T2 hyperintense and T1 hypointense components. There is a moderate amount of surrounding vasogenic edema. The mass occupies the region of the gyrus rectus and supraorbital gyrus. It is located inferior and anterior to the frontal horn of the left lateral ventricle, which it dist orts. It causes a local, mild 0.4 cm shift of midline inferior to the level of the frontal horns. The re is no midline shift at the level superior to the frontal horns. The mass has grown from previous d imensions of 3 x 2.5 x 2.5 cm on 11-10-17. There is no evidence of associated hemorrhage. There are no new lesions. Chronic ischemic white matter changes are mild. The tumor itself has mildly restricted diffusion in its anterior portions, but there is no restricted diffusion elsewhere in the brain paren chyma. IMPRESSION: 1. Mild interval growth of the solitary left frontal lobe intraaxial malignant neoplastic tumor since the prior MRI of 11-10-17. 2. In the setting of a known lung cancer, this is highly likely to be a solitary brain metastasis. Pr imary astrocytoma/glioblastoma can also have this appearance. ARIANA Agrawal POS: [facility]
[2017-12-01] MEDS ORDERED: Bacitracin Zinc Ointment 30 gm TUBE ONE (11:06)
[2017-12-01] MEDS ORDERED: Thrombin 5000 UNITS/5 ML VIAL ONE (11:09)
[2017-12-01] MEDS ORDERED: Mannitol 12.5 GM/50 ML ONE (11:09)
[2017-12-01] MEDS ORDERED: Sodium Chloride 0.9% 10 ML ONE ×2 (11:09→14:51)
[2017-12-01] MEDS ORDERED: Fentanyl 100 MCG/2 ML VIAL ONE ×2 (11:12)
[2017-12-01] MEDS ORDERED: levETIRAcetam In NaCl (Iso-Os) 1,000 MG in Premix Bag 1 BAG IVPB SCH ×2 (13:45)
[2017-12-01] MEDS ORDERED: Insulin Regular 300 UNITS/3 ML VIAL ONE (14:29)
[2017-12-01] MEDS ORDERED: HYDROmorphone 0.5 MG/0.5 ML SYRINGE ONE (14:59)
[2017-12-01] MEDS ORDERED: Fleet Enema 133 ML BOT PR PRN (15:28)
[2017-12-01] MEDS ORDERED: Ondansetron HCl/PF 4 MG/2 ML Vial IVP PRN (15:28)
[2017-12-01] MEDS ORDERED: hydrALAZINE 20 MG/ML VIAL SLOW IVP PRN (15:28)
[2017-12-01] MEDS ORDERED: Docusate 100 MG CAP PO PRN (15:28)
[2017-12-01] MEDS ORDERED: Mag-Al 1200 mg/1200 mg/30 ML UDCUP PO PRN (15:28)
[2017-12-01] MEDS ORDERED: HYDROcodone/Acetaminophen 7.5/325 mg Tablet PO PRN (15:28)
[2017-12-01] MEDS ORDERED: Fluticasone Propionate Nasal Spray 16 gm Bottle NASAL PRN (15:38)
[2017-12-01] MEDS ORDERED: [UNRECOGNIZED DRUG - REMARK] FS SCH (16:00)
[2017-12-01] MEDS ORDERED: Glycopyrrolate 0.2 MG/ML 5 ML SYRINGE ONE (16:23)
[2017-12-01] MEDS ORDERED: Dexamethasone 20 MG/5 ML VIAL ONE (16:23)
[2017-12-01] MEDS ORDERED: PHENYLEPHRINE-NS 100 MCG/ML 10 ML SYRINGE ONE (16:23)
[2017-12-01] MEDS ORDERED: Propofol 200 MG/20 ML VIAL ONE (16:23)
[2017-12-01] MEDS ORDERED: Lidocaine 1% PF 5 ML VIAL ONE (16:23)
[2017-12-01] MEDS: glipiZIDE 5 MG TAB PO SCH (16:50)
[2017-12-01] MEDS: metFORMIN 500 MG TAB PO SCH (16:50)
[2017-12-01] MEDS: Sodium Chloride 0.9% 1,000 ML IV SCH (16:50)
[2017-12-01] MEDS: Nicotine 14 MG PATCH TD SCH (16:56)
[2017-12-01] MEDS: CEFAZOLIN/Water 2 GM/20 ML SYRINGE SLOW IVP SCH (17:41)
[2017-12-01] MEDS: Dexamethasone 4 mg/ml Vial SLOW IVP SCH (17:42)
[2017-12-01] MEDS: Pravastatin Sodium 40 MG TAB PO SCH (21:40)
--- NOTE | 2017-12-01 23:37 | CON ---
DATE OF CONSULTATION: 12/01/2017 HISTORY OF PRESENT ILLNESS: Ms. Arevalo is a 62-year-old female. She was seen by my associate in October for an abnormal radiograph and CT. Bronchoscopy revealed squamous cell carcinoma. An MRI of the brain on 11/10/2017 showed a 2.8 cm left frontal brain mass. She was discharged home on 11/16/2017 for outpatient followup. She underwent craniotomy this morning. I was consulted because of her presence in the ICU, she was easily extubated. She has had no postop symptoms of obstructive sleep apnea. PAST MEDICAL HISTORY: 1. Remarkable for diabetes. 2. Hypertension. 3. Lipid disorder. 4. History of hypothyroidism. MEDICATIONS: She was discharged in October. She was on antibiotics, amlodipine , benazepril, Decadron, Flonase, glipizide, Lantus, Synthroid, lisinopril, metformin, pravastatin, prednisone, Seroquel, and Zoloft. FAMILY HISTORY: Negative for lung disease at an early age. SOCIAL HISTORY: Patient admits to smoking 30-35 pack per year, denies drug or alcohol use. SYSTEM REVIEW: 12 point otherwise negative PHYSICAL EXAMINATION: GENERAL: Her head was bandaged. She is alert. She can answer questions. She was a little sleepy, but easily awaken to voice. She is only complaining of a headache her head was wrapped with bandage. HEENT: Pupils are equal. VITAL SIGNS: Blood pressure 110/67, heart rate 94, respiratory rate 16, oximetry 91. NECK: Supple. LUNGS: Clear. HEART: Regular rhythm. S1 and S2 are normal. ABDOMEN: Soft and nontender. EXTREMITIES: Without clubbing, cyanosis, or edema. LABORATORY DATA: White count 25.8, hemoglobin 12.1, platelets 432. Sodium 138 , potassium 4.5, chloride 108, bicarbonate 20, BUN 23, creatinine 0.7. IMPRESSION: 1. Metastatic squamous cell carcinoma. 2. Reactive thrombocytosis associated with malignancy. 3. Neutrophilia secondary to her steroids. I will be happy to follow along while she is in the ICU. I will notify Dr. Ford of her admission in the morning. This is a 50 minute consult, greater than 50% of the time was spent coordinating care. ALISA
[2017-12-02] MEDS: Dexamethasone 4 mg/ml Vial SLOW IVP SCH ×4 (00:44→18:10)
[2017-12-02] MEDS: CEFAZOLIN/Water 2 GM/20 ML SYRINGE SLOW IVP SCH ×3 (02:16→18:10)
[2017-12-02] MEDS: Sodium Chloride 0.9% 1,000 ML IV SCH ×2 (04:33→19:43)
[2017-12-02 05:22] LABS: Anion Gap 13 mmol/L (10-20); BUN (Urea Nitrogen) 17 mg/dL (9.8-20.1); Calc. Creatinine Clearance 110 mL/min (70-130); Calcium 9.3 mg/dL (7.8-10.44); Carbon Dioxide 22 mmol/L (22-29); Chloride 106 mmol/L (98-107); Estimated GFR-MDRD Greater than 90; Glucose 132 mg/dL (70-105); Sodium 137 mmol/L (136-145)
[2017-12-02 05:29] LABS: Band 4 % (5-11); Hemoglobin 10.4 g/dL (12.0-16.0); Lymphocytes 7 % (21-51); MDiff Complete? YES; Mean Corpuscular HGB CONC 33.1 g/dL (32.0-36.0); Mean Corpuscular Volume 90.7 fl (81.0-99.0); Mean Platelet Volume 6.5 fL (7.4-10.4); Monocytes 2 % (0-10); Myelocyte 1 % (0-0); Neutrophil 86 % (42-75); Platelet Count 423 thou/uL (130-400); RBC Distribution Width 12.3 % (11.5-14.5); Red Blood Cell (RBC) Count 3.48 mill/uL (4.20-5.40); White Blood Cell (WBC) Count 23.8 thou/uL (4.8-10.8)
[2017-12-02] MEDS: Levothyroxine Sodium 100 MCG TAB PO SCH (06:23)
[2017-12-02] MEDS: Acetaminophen 325 MG TAB PO PRN ×2 (06:26→21:21)
[2017-12-02] MEDS: glipiZIDE 5 MG TAB PO SCH ×2 (09:11→16:09)
[2017-12-02] MEDS: Amlodipine 5 MG TAB PO SCH (09:11)
[2017-12-02] MEDS: metFORMIN 500 MG TAB PO SCH ×2 (09:11→16:09)
[2017-12-02] MEDS: Lisinopril 2.5 MG TAB PO SCH (09:14)
[2017-12-02] MEDS: Pantoprazole 40 MG VIAL IVP SCH (09:14)
--- NOTE | 2017-12-02 09:32 | PRG ---
DATE OF SERVICE: 12/02/2017 Ms. Arevalo is postoperative day 1 from left frontal stereotactic craniotomy for metastatic tumor resec tion. She is doing very well this morning. She did have some difficulty with orientation regarding dates, but otherwise knows her name and where she is at. She has no motor deficits and her speech fo r the most part appears to be fluent. I am very pleased with how she is doing. We will plan to redmond sfer to the floor and ask our medical colleagues to assist in regards to some concern that there may be a pneumonia versus urinary tract infection. We also need assistance with her diabetes. We will o btain an ultrasound of the lower extremities.
--- NOTE | 2017-12-02 10:29 | OP ---
DATE OF PROCEDURE: 12/01/2017 OR: OR #12 SURGEON: Christiano Hall M.D. BLUEPRINT READER: Brian Mccarthy PA-C. PREPROCEDURE DIAGNOSIS: Left frontal metastatic tumor with known lung primary. POSTPROCEDURE DIAGNOSES: Left frontal metastatic tumor with known lung primary. PROCEDURE: 1. Left frontal stereotactic craniotomy for tumor resection. 2. Use of operative microscope for microdissection with use of stereotactic guidance. DESCRIPTION OF PROCEDURE: After informed consent was obtained from the patient, the patient brought to OR 12. Proper patient pause and identification was carried out. She was placed supine on the ope rating room table and her head secured to the [place] ibeth. The stereotactic registration occurre d with excellent accuracy. Hair was clipped in the left frontal region and an incision drawn out. T his region was sterilely cleansed, prepared, and draped. Proper patient pause and identification was carried out. The wound was then opened with a combination of sharp, monopolar and blunt dissection and a craniotomy fashioned. We identified the left superior and middle frontal gyrus. An entry poin t was made and an opening in the markos occurred. We proceeded a transcortical approach to the tumor. Certainly there components of it that were cystic and filled with mucus as is typical in lung adenoca rcinoma. However, it had certainly parasitized surrounding blood supply near the arachnoid. This wa s coagulated, I felt we had an excellent resection. Hemostasis was maximized throughout. The wound was copiously irrigated and closed in anatomic layers following placement of the craniotomy flap fixe d with titanium plates and screws. This scalp was then again closed in anatomic layers. The patient emerged from anesthesia.
[2017-12-02] MEDS: Nicotine 14 MG PATCH TD SCH (16:10)
[2017-12-02] MEDS ORDERED: Insulin Regular 300 UNITS/3 ML VIAL SC PRN (17:42)
[2017-12-02] MEDS ORDERED: Dextrose 5% in Water 1,000 ML IV PRN (17:42)
[2017-12-02] MEDS ORDERED: Dextrose 50% Abboject 50 ML SYRINGE SLOW IVP PRN (17:42)
[2017-12-02] MEDS ORDERED: HumaLOG 300 UNITS/3 ML VIAL SC PRN (17:42)
[2017-12-02] MEDS ORDERED: cloNIDine 0.1 MG TAB PO PRN (17:43)
--- NOTE | 2017-12-02 18:04 | PRG ---
DATE OF SERVICE: 12/02/2017 SERVICE: Pulmonary Medicine. INTERVAL HISTORY: The patient is doing really well from cardiovascular and respiratory standpoint. She is breathing beautifully today. She is moving all 4 extremities and has no discomforts. She is really doing quite well for having just gone through a neurosurgery. PHYSICAL EXAMINATION: VITAL SIGNS: Afebrile, pulse 106, blood pressure 102/68, respiratory rate 14, saturation 95% on room air. GENERAL: The patient is awake and alert, no apparent distress. LUNGS: Excellent air entry. There is no prolonged expiratory phase or wheezing. No rhonchi are pre sent. HEART: Normal rate, regular. ABDOMEN: Soft, nontender, nondistended. Bowel sounds are positive. MUSCULOSKELETAL: No cyanosis or clubbing. There is no pitting in the bilateral lower extremities. NEUROLOGIC: Grossly nonfocal. LABORATORY DATA: WBC 23.8, hemoglobin 10.4, platelets 423,000. Neutrophil count is 86% and bands ar e 4%. Basic metabolic profile is completely unremarkable. ASSESSMENT: 1. Squamous cell carcinoma of the lung, widely metastatic including brain metastasis. 2. Craniotomy for resection of metastasis, postoperative day #1. PLAN: At this point, the patient is doing absolutely fantastic. She is stable for transition to the floor. I will continue to follow for the time being but hopefully, she will be considered for disch arge home in 24 to 48 hours.
--- NOTE | 2017-12-02 18:41 | RAD ---
TWO VIEW CHEST: 12/02/17 HISTORY: Cough and elevated white cell count. Comparison made to CT of 11/29/17 and chest x-ray of 11/28/17. There continues to be opacification of the right upper lobe consistent with right upper lobe atelecta sis. CT confirmed a hilar mass obstructing the right upper lobe bronchus. The lungs are otherwise clear and unchanged. IMPRESSION: Right upper lobe atelectasis and right hilar mass which is better delineated on recent CT. There is n o evidence of acute interval change when compared to chest exam of 11/28/17. POS: [facility]
--- NOTE | 2017-12-02 20:10 | CON ---
DATE OF CONSULTATION: 12/02/2017 PRIMARY CARE PHYSICIAN: Brian Salinas MD REASON FOR CONSULTATION: Aid in medical management. HISTORY OF PRESENT ILLNESS: Ms. 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 She was admitted for an elective resection of the brain tumor. The patient has so far had an uneventful postoperative course. She has no complain ts. She denies any chest pain or shortness of breath. She has noted a cough which she says just onl y occasional, the cough is nonproductive and she again denies any shortness of breath and says that o nly started just today, otherwise no other complaints. She says her blood pressure and diabetes are generally well controlled. The hospitalist had been consulted for aid in medical management as well as there was some concern for possible urinary tract infection or pneumonia. I think this may be as a result of her white blood cell count elevation; however, again, the patient has no specific complai nts other than just a nonproductive cough. PAST MEDICAL HISTORY: Significant for diabetes mellitus, hypertension, hyperlipidemia, bipolar disor leonela, squamous cell lung cancer. PAST SURGICAL HISTORY: She has had a tonsillectomy. ALLERGIES: No known drug allergies. SOCIAL HISTORY: She is a former smoker. She says she quit 3 weeks ago. Prior to that, she smoked a pack a day for 45 years. Occasionally drinks. She has a significant other. FAMILY HISTORY: Significant for prostate cancer in the family as well as breast cancer in her mother and lung cancer in her father. CURRENT MEDICATIONS: Include Zoloft 50 mg daily, Seroquel 600 mg at bedtime, Pravachol 40 mg daily, nicotine patch, metformin 1000 mg twice a day, lisinopril 2.5 mg daily, levothyroxine 100 mcg daily, glipizide 5 mg twice a day, Flonase nasal spray daily, Decadron 4 mg twice a day, benazepril 20 mg da cecy, and amlodipine 5 mg daily. PHYSICAL EXAMINATION: GENERAL: She is alert and oriented. She appears to be in no acute distress. VITAL SIGNS: Blood pressure was 130/58, heart rate 94, respiratory rate of 14, temperature is 99.4. HEENT: Pupils are equal, round, and reactive. Extraocular muscles are intact. Sclerae are anicteri c. Throat, no erythema, no exudates. NECK: No adenopathy, no bruits. LUNGS: Clear. There is no wheezing, no rales. CARDIOVASCULAR: She has a normal S1, S2. I did not appreciate an S3 or S4. No murmurs, clicks or r ubs. ABDOMEN: Soft, it is nontender, nondistended. Positive for bowel sounds. No rebound, no guarding. EXTREMITIES: There is no clubbing, cyanosis, no edema. NEUROLOGIC: The exam is nonfocal. LABORATORY DATA: White blood cell count 23.8, hemoglobin 10.4, hematocrit 31.5, platelet count is 42 3. Sodium 137, potassium 4.0, chloride is 106, CO2 is 22, BUN of 17, creatinine 0.72, glucose is 132 . ASSESSMENT AND PLAN: This is a 62-year-old female that presents to the hospital for an elective left frontal lobe craniotomy for tumor resection. The patient is clinically doing well, has basically no complaints except for dry cough. I suspect this could likely be related to her history of lung canc er. However, the primary team is concerned for possible pneumonia. Her white count is elevated, but it has been elevated prior to admission and I suspect this could be the effect of steroids. However , we will go ahead and get a chest x-ray, PA and lateral, to rule out an infiltrate and also we can a lso check a urinalysis as well. With regards to diabetes mellitus, we will continue her usual home medications as well as place her o n sliding scale insulin and allowed for p.r.n. medications for blood pressure and will be happy to fo llow along with you.
[2017-12-02] MEDS: Pravastatin Sodium 40 MG TAB PO SCH (20:35)
[2017-12-03] MEDS: CEFAZOLIN/Water 2 GM/20 ML SYRINGE SLOW IVP SCH ×3 (01:00→19:21)
[2017-12-03] MEDS: Dexamethasone 4 mg/ml Vial SLOW IVP SCH ×5 (01:00→23:34)
[2017-12-03 03:45] VITALS: BMI 31.4
[2017-12-03] MEDS: Levothyroxine Sodium 100 MCG TAB PO SCH (05:34)
[2017-12-03] MEDS: glipiZIDE 5 MG TAB PO SCH ×2 (09:08→17:25)
[2017-12-03] MEDS: metFORMIN 500 MG TAB PO SCH ×2 (09:08→17:25)
[2017-12-03] MEDS: Amlodipine 5 MG TAB PO SCH (09:10)
[2017-12-03] MEDS: Lisinopril 2.5 MG TAB PO SCH (09:11)
[2017-12-03] MEDS: Pantoprazole 40 MG VIAL IVP SCH (09:14)
--- NOTE | 2017-12-03 10:55 | ULT ---
BILATERAL LOWER EXTREMITY VENOUS DOPPLER ULTRASOUND: HISTORY: Bilateral lower extremity swelling. TECHNIQUE: Shin scale ultrasound with color flow and spectral Doppler imaging of the deep vein systems of the lo wer extremities performed bilaterally. FINDINGS: There is good flow, compression, and augmentation noted in the common femoral, femoral, deep femoral, popliteal, posterior tibial, and greater saphenous veins. IMPRESSION: No evidence of deep vein thrombosis in either lower extremity. POS: [facility]
[2017-12-03] MEDS ORDERED: Amoxicillin/Potassium Clav 875 MG TAB PO SCH (13:30)
--- NOTE | 2017-12-03 13:32 | PRG ---
DATE OF SERVICE: 12/03/2017 SERVICE: Pulmonary Medicine. INTERVAL HISTORY: The patient is doing fine from a respiratory standpoint. She is breathing comfort ably. She has a little bit of cough and is bringing up a small amount of sputum. She has got no [place] st discomfort, nausea, vomiting or diarrhea. She is hopefully going home today or tomorrow based on what she is telling me. PHYSICAL EXAMINATION: VITAL SIGNS: Afebrile, pulse 105, blood pressure 100/68, respirations 16, saturation 95% on room air . GENERAL: Patient is awake, alert, in no apparent distress. LUNGS: Excellent air entry. There is no prolonged expiratory phase, wheezing, rhonchi, or crackles. HEART: Normal rate, regular. ABDOMEN: Soft, nontender, nondistended. Bowel sounds are positive. MUSCULOSKELETAL: No cyanosis or clubbing. No pitting in the bilateral lower extremities. NEUROLOGIC: Grossly nonfocal. IMAGING: Ultrasound of the bilateral lower extremities demonstrates no evidence of DVT. Chest x-ray demonstrates right upper lobe mask and atelectasis which was previously identified. No e vidence of significant interval change compared to 11/27/2017. ASSESSMENT: 1. Squamous cell carcinoma of lung, widely metastatic including brain mets. 2. Craniotomy for resection metastasis, postop day #2. PLAN: The patient is doing very well after surgery. At this point, she has no ongoing requirements for inpatient Pulmonary or Critical Care opinion. Post-obstructive pneumonia cannot be excluded. As such, I think it is reasonable to give her 14-day course of Augmentin for this elevated white blood cell count though the patient does remain fairly asymptomatic. She has no further requirements for i npatient Pulmonary or Critical care opinion. As such, we will sign off.
--- NOTE | 2017-12-03 15:11 | PDOC.PN ---
- Subjective Encounter Start Date: 12/03/17 Encounter Start Time: 15:09 Ms. Arevalo does not have any complaints. She denies headache, no chest pain or shortness of breath. - Objective MAR Reviewed: Yes Vital Signs & Weight: Vital Signs (12 hours) Temp Pulse Resp BP BP Pulse Ox 12/03/17 09:11 105 H 100/68 12/03/17 09:10 105 H 100/68 12/03/17 08:00 98.5 F 105 H 16 95 12/03/17 07:31 98.5 F 105 H 16 100/68 95 12/03/17 04:00 98.6 F 98 17 105/68 92 L Weight Admit Weight 185 lb 0.191 oz Weight 195 lb Most Recent Monitor Data Heart Rate from ECG 104 NIBP 114/62 NIBP BP-Mean 82 Respiration from ECG 16 SpO2 99 I&O: 12/02/17 12/03/17 12/04/17 06:59 06:59 06:59 Intake Total 2507 1655 Output Total 2795 660 Balance -288 995 Result Diagrams: 12/02/17 04:45 12/02/17 04:45 Additional Labs: Accuchecks 12/03/17 12/03/17 12/02/17 11:31 05:37 20:35 POC Glucose 159 H 185 H 199 H 12/02/17 15:43 POC Glucose 244 H Phys Exam - Physical Examination HEENT: PERRLA Respiratory: wheezing present + occasional wheeze Cardiovascular: RRR, no significant murmur Gastrointestinal: soft, non-tender, positive bowel sounds Musculoskeletal: no edema Dx/Plan (1) Diabetes mellitus type 2 in obese Code(s): E11.69 - TYPE 2 DIABETES MELLITUS WITH OTHER SPECIFIED COMPLICATION; E66.9 - OBESITY, UNSPECIFIED Status: Acute (2) Leukocytosis Code(s): D72.829 - ELEVATED WHITE BLOOD CELL COUNT, UNSPECIFIED Status: Acute (3) Hypertension Code(s): I10 - ESSENTIAL (PRIMARY) HYPERTENSION Status: Chronic Qualifiers: (4) Metastatic squamous cell carcinoma Code(s): C79.9 - SECONDARY MALIGNANT NEOPLASM OF UNSPECIFIED SITE; C80.1 - MALIGNANT (PRIMARY) NEOPLASM, UNSPECIFIED Status: Chronic - Plan * Leukocytosis- suspect from Decadron, however post obstructive pneumonia is also a possibility- she has been started on Augmentin by Dr. Ford * HTN- blood Pressure is stable * DM- blood glucose is stable * Venous ultrasound was negative for DVT.
--- NOTE | 2017-12-03 16:41 | PRG ---
DATE OF SERVICE: 12/03/2017 Brian Mccarthy PA-C dictating for Dr. Christiano Hall. Ms. Arevalo is now postoperative day #2 having undergone a left frontal brain tumor resection. The pat ient states that she is doing very well today. She is sitting up on the edge of the bed, has been wa lking, tolerating solid diet, and pain is controlled with oral medications. She has also been voidin g. She states her headache is only present with increased intracranial pressure including coughing. She is neurologically at baseline, alert and oriented x3, and has good strength in the bilateral upp er and bilateral lower extremities. We will plan for dismissal tomorrow. The patient continues to i mprove. She is on appropriate antibiotics as well as Keppra and Decadron. Please call with any baxter ges in the patient's neurologic status.
[2017-12-03] MEDS: Nicotine 14 MG PATCH TD SCH (17:26)
[2017-12-03] MEDS: Pravastatin Sodium 40 MG TAB PO SCH (20:00)
[2017-12-03] MEDS: Amoxicillin/Potassium Clav 875 MG TAB PO SCH (20:00)
[2017-12-04] MEDS: Levothyroxine Sodium 100 MCG TAB PO SCH (05:08)
[2017-12-04] MEDS: Dexamethasone 4 mg/ml Vial SLOW IVP SCH (05:09)
[2017-12-04 08:15] VITALS: TEMP 98.8
[2017-12-04] MEDS: Pantoprazole 40 MG VIAL IVP SCH (08:26)
[2017-12-04] MEDS: metFORMIN 500 MG TAB PO SCH (08:27)
[2017-12-04] MEDS: Lisinopril 2.5 MG TAB PO SCH (08:28)
[2017-12-04] MEDS: Amoxicillin/Potassium Clav 875 MG TAB PO SCH (08:28)
[2017-12-04] MEDS: Amlodipine 5 MG TAB PO SCH ×2 (08:28→08:42)
[2017-12-04 08:29] VITALS: BP 100/68
[2017-12-04] MEDS: glipiZIDE 5 MG TAB PO SCH (08:29)
--- NOTE | 2017-12-04 10:16 | PRG ---
DATE OF SERVICE: 12/04/2017 Ms. Arevalo is postoperative day 3 following left frontal stereotactic craniotomy for tumor resection. Pathology is consistent with squamous cell carcinoma of lung origin. This is no surprise. Neurolog ically, she is doing well and appears to be neurologically intact. She is tolerating floor care just fine. We will plan for dismissal today. We went over both intra and postoperative issues. Her wou nd is healing well. Follow up is arranged in my clinic for a wound check and at that point will need to pursue adjuvant therapy.
[2017-12-05] MEDS ORDERED: Dexamethasone 4 mg/ml Vial SLOW IVP SCH (18:00)
[2017-12-07] MEDS ORDERED: Dexamethasone 4 mg/ml Vial SLOW IVP SCH (18:00)
[2017-12-08 13:53] LABS: Actual Bicarbonate (HCO3a) 20.6 mEq/L (22-26); Analyzer IN Cardio OR; Base Excess (BEa) -2.6 mEq/L (0 (+/-) 2.5); CO2 Tension 30.5 mmHg (35.0-45.0); Calcium, Ionized 1.3 mmol/L (1.12-1.30); Hematocrit-ABG 36.2 % (36.0-47.0); Hemoglobin (Hb) 11.6 g/dL (12.0-16.0); O2 Tension (PaO2) 115.1 mmHg (80.0-100.0); Puncture Site ALINE; pH, Arterial 7.45 (7.35-7.45)
[2017-12-08 14:12] LABS: Actual Bicarbonate (HCO3a) 20.1 mEq/L (22-26); CO2 Tension 29.6 mmHg (35.0-45.0); Hematocrit-ABG 34.1 % (36.0-47.0); Hemoglobin (Hb) 10.6 g/dL (12.0-16.0); O2 Tension (PaO2) 179.6 mmHg (80.0-100.0); pH, Arterial 7.45 (7.35-7.45)
[2017-12-08 14:13] LABS: Analyzer IN Cardio OR; Calcium, Ionized 1.2 mmol/L (1.12-1.30); Puncture Site ALINE
== END 2017-12-04 11:04 | disposition home or self-care (01) | DRG 26 ==
LOC: SURG A 12-01 06:25 → CCU 12-01 11:29 → 2NO 12-01 19:03 → CCU 12-01 19:08 → SJJU 12-02 11:07
PROVIDERS: ADMIT Surgery; ATTEND Surgery
PROC: 00B70ZZ Excision of Cerebral Hemisphere, Open Approach (ICD-10-PCS; principal; 2017-12-01)
DX: C79.31 Secondary malignant neoplasm of brain (principal); C34.90 Malignant neoplasm of unspecified part of unspecified bronchus or lung; D72.0 Genetic anomalies of leukocytes; E11.9 Type 2 diabetes mellitus without complications; I10 Essential (primary) hypertension; E78.5 Hyperlipidemia, unspecified; F31.9 Bipolar disorder, unspecified; Z87.891 Personal history of nicotine dependence; Z79.84 Long term (current) use of oral hypoglycemic drugs; D47.3 Essential (hemorrhagic) thrombocythemia; E66.9 Obesity, unspecified; D72.829 Elevated white blood cell count, unspecified; T38.0X5A Adverse effect of glucocorticoids and synthetic analogues, initial encounter; Z68.29 Body mass index [BMI] 29.0-29.9, adult
CPT/HCPCS: 36415; 36416; 70553; 71045; 71046; 71275; 78452; 80048; 80053; 80061; 82553; 82607; 82805; 83605; 83880; 84484; 85025; 88307; 88331; 88334; 88341; 88342; 90471; 90670; 93005; 93017; 93970; 94640; 94760; 96361; 96374; A4216; A9500; C1713; C1769; C9113; G0009; G0378; J1100; J1165; J1170; J1642; J1650; J1815; J1953; J2001; J2150; J2250; J2704; J2785; J2930; J3010; J3490; J7620; J8540

== ENCOUNTER 2017-11-27 11:45 | Outpatient (CLI) | payer MEDICARE ==
[2017-11-27 13:23] LABS: Hemoglobin 13.8 g/dL (12.0-16.0); Mean Corpuscular HGB CONC 32.8 g/dL (32.0-36.0); Mean Corpuscular Hemoglobin 29.7 pg (27.0-31.0); Mean Corpuscular Volume 90.7 fl (81.0-99.0); Mean Platelet Volume 6.9 fL (7.4-10.4); Platelet Count 517 thou/uL (130-400); RBC Distribution Width 12.5 % (11.5-14.5); Red Blood Cell (RBC) Count 4.63 mill/uL (4.20-5.40); White Blood Cell (WBC) Count 29.2 thou/uL (4.8-10.8)
[2017-11-27 13:30] LABS: INR-International Normal Ratio 0.9; Prothrombin Time 12.4 SEC (12.0-14.7)
[2017-11-27 13:44] LABS: Anion Gap 16 mmol/L (10-20); BUN (Urea Nitrogen) 25 mg/dL (9.8-20.1); Calc. Creatinine Clearance 0 mL/min (70-130); Calcium 10.1 mg/dL (7.8-10.44); Carbon Dioxide 23 mmol/L (22-29); Chloride 105 mmol/L (98-107); Estimated GFR-MDRD 71; Glucose 193 mg/dL (70-105); Sodium 139 mmol/L (136-145)
== END 2017-11-27 11:46 | disposition home or self-care (01) ==
LOC: LABBT 11:45
PROVIDERS: ATTEND Surgery
DX: Z01.818 Encounter for other preprocedural examination (principal); C79.31 Secondary malignant neoplasm of brain
CPT/HCPCS: 80048; 85027; 85610; 85730; 93005; 93010

== ENCOUNTER 2017-11-28 21:58 | Observation (INO) | payer MEDICARE ==
[2017-11-28 22:35] LABS: Hemoglobin 13.5 g/dL (12.0-16.0); Mean Corpuscular HGB CONC 33.1 g/dL (32.0-36.0); Mean Corpuscular Hemoglobin 30.3 pg (27.0-31.0); Mean Corpuscular Volume 91.8 fl (81.0-99.0); Mean Platelet Volume 6.6 fL (7.4-10.4); Platelet Count 486 thou/uL (130-400); RBC Distribution Width 12.6 % (11.5-14.5); Red Blood Cell (RBC) Count 4.44 mill/uL (4.20-5.40); White Blood Cell (WBC) Count 24.8 thou/uL (4.8-10.8)
[2017-11-28 22:44] LABS: ALT (SGPT) 44 U/L (8-55); AST (SGOT) 15 U/L (5-34); Albumin 3.8 g/dL (3.5-5.0); Alkaline Phosphatase 94 U/L (40-150); Anion Gap 23 mmol/L (10-20); BUN (Urea Nitrogen) 29 mg/dL (9.8-20.1); Bilirubin, Total Less than 0.2 mg/dL (0.2-1.2); CK (CPK) 16 U/L (29-168); Calc. Creatinine Clearance 0 mL/min (70-130); Calcium 9.7 mg/dL (7.8-10.44); Carbon Dioxide 12 mmol/L (22-29); Chloride 104 mmol/L (98-107); Estimated GFR-MDRD 69; Globulin 3.3 g/dL (2.4-3.5); Glucose 198 mg/dL (70-105); Potassium 4.4 mmol/L (3.5-5.1); Protein, Total 7.1 g/dL (6.0-8.3); Sodium 135 mmol/L (136-145)
[2017-11-28 22:45] LABS: Band 7 % (5-11); Lymphocytes 16 % (21-51); MDiff Complete? YES; Monocytes 5 % (0-10); Neutrophil 72 % (42-75)
[2017-11-28 22:48] LABS: CKMB 1.1 ng/mL (0-6.6); Troponin I 0.012 ng/mL (< 0.028)
--- NOTE | 2017-11-28 22:52 | RAD ---
SINGLE VIEW OF THE CHEST 11/28/17 COMPARISON: 03/14/15 HISTORY: Chest pain. FINDINGS: Single view of the chest shows a normal sized cardiomediastinal silhouette. Opacity is seen in the ri ght apex and is associated with volume loss. This likely represents atelectasis of the right upper lo be. No pleural effusion is seen. IMPRESSION: Right upper lobe atelectasis. POS: [facility]
[2017-11-28] MEDS ORDERED: HYDROcodone/Acetaminophen 5/325 mg Tablet ONE (22:57)
[2017-11-29] MEDS ORDERED: methylPREDNISolone Sod Succ/PF 125 MG/2 ML VIAL ONE (00:19)
[2017-11-29] MEDS ORDERED: Aspirin 325 MG TAB ONE (01:40)
[2017-11-29] MEDS ORDERED: Ondansetron PF 4 MG/2 ML Vial IVP PRN (03:08)
[2017-11-29] MEDS ORDERED: Acetaminophen 325 MG TAB PO PRN (03:08)
[2017-11-29] MEDS ORDERED: Ondansetron ODT 4 MG TAB SL PRN (03:08)
[2017-11-29 03:35] VITALS: BMI 30.7
[2017-11-29 04:54] LABS: Troponin I Less than 0.010 ng/mL (< 0.028)
[2017-11-29] MEDS ORDERED: HYDROcodone/Acetaminophen 7.5/325 mg Tablet PO PRN (06:06)
[2017-11-29] MEDS ORDERED: Nitroglycerin 0.4 MG TAB (25 Tab Bottle) PO PRN (06:10)
[2017-11-29] MEDS ORDERED: Fluticasone Propionate Nasal Spray 16 gm Bottle NASAL PRN (06:14)
[2017-11-29] MEDS ORDERED: Senokot 8.6 MG TAB PO SCH (06:15)
[2017-11-29] MEDS ORDERED: Dextrose 50% Abboject 50 ML SYRINGE SLOW IVP PRN (06:26)
[2017-11-29] MEDS ORDERED: HumaLOG 300 UNITS/3 ML VIAL SC PRN (06:26)
[2017-11-29] MEDS ORDERED: Dextrose 5% in Water 1,000 ML IV PRN (06:26)
[2017-11-29] MEDS ORDERED: Albuterol Sulfate 2.5 mg/3 ml Neb NEB PRN (06:44)
[2017-11-29] MEDS ORDERED: Aspirin 325 MG TAB PO SCH ×3 (07:00→18:00)
[2017-11-29] MEDS ORDERED: Morphine 5 MG/ML SYRINGE SLOW IVP PRN (07:04)
--- NOTE | 2017-11-29 07:35 | PDOC.EVN ---
Attending Addendum - Attending Addendum I personally evaluated the patient and discussed the management with Dr. Denisa Quan. I agree with the History, Examination, Assessment and Plan documented in her H& P with any addition or exceptions noted below. Patient with history of T2DM, HTN, HLD, and recent diagnosis of SCC of the lung with brain mets presenting with new onset of chest pain that began yesterday. Reports midsternal pain without radiation and not associated with shortness of breath, palpitations, diaphoresis, nausea described as constant and pressure/ sharp like. She was seated when the pain began. Reports no similar pain in the past. She has no coronary disease that she knows of. Her pain persisted until she arrived in the ER and was given medication. Patient is scheduled for craniotomy and tumor debulking with Dr. Hall in 2 days. Patient currently without pain. Her exam is benign from a cardiac standpoint. No EKG changes and troponins negative. Her other labs are stable from previous. Due to her risk factors for CAD and upcoming major surgery, will order nuclear stress testing. Will also discuss case with Dr. Hall so see if he desires further cardiac clearance, though stress testing should suffice and I have low suspicion that her current complaint is cardiac in nature.
[2017-11-29] MEDS: Nicotine 21 MG PATCH TD SCH (08:09)
[2017-11-29 08:13] LABS: Lactic Acid 3.6 mmol/L (0.5-2.2)
[2017-11-29 08:22] LABS: Troponin I 0.018 ng/mL (< 0.028)
[2017-11-29] MEDS: Sodium Chloride 0.9% 1,000 ML IV SCH ×2 (08:36→14:41)
[2017-11-29] MEDS ORDERED: Prevnar 13-Val Conj/PF 0.5 ML SYRINGE IM ONE (09:00)
--- NOTE | 2017-11-29 11:54 | HP-2 ---
CODE STATUS: FULL. PRIMARY CARE PHYSICIAN: Dr. Salinas. ATTENDING PHYSICIAN: Dr. Christiano Garner. RESIDENT: Dr. Juwan Quan. HISTORIAN: The patient. SPECIALISTS: Dr. Ford and Dr. Jimenez. CHIEF COMPLAINT: Chest pain. 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 It first occurred while she was lying down at home and today after eating. She has no associated shortness of breath, nausea or vomiting, diaphoresis. She took 2 Aleve, which did not help. She endorses a cough also for 2 or 3 days, productive of sputum. In the ER, she received aspirin 325 mg, DuoNebs 3 mL, 1 liter normal saline, 125 mg Solu-Medrol and [place] 5 mg. PAST MEDICAL HISTORY: 1. Type 2 diabetes. 2. Hypertension. 3. Hyperlipidemia. 4. Bipolar disorder. 5. Squamous cell carcinoma of the lung with brain mets. PAST SURGICAL HISTORY: None. ALLERGIES: No known drug allergies. MEDICATIONS: 1. Amlodipine 5 mg daily. 2. Benazepril 20 mg daily. 3. Dexamethasone 4 mg b.i.d. 4. Flonase daily. 5. Glipizide 5 mg p.o. b.i.d. 6. Guaifenesin 50 mg p.o. q.4 hours. 7. Lantus 30 units subcu b.i.d. 8. Synthroid 100 mcg daily. 9. Lisinopril 2.5 mg daily. 10. Metformin 1000 mg b.i.d. 11. Pravastatin 40 mg at bedtime. 12. Prednisone 40 mg daily. 13. Seroquel 600 mg at bedtime. 14. Sertraline 50 mg at night. SOCIAL HISTORY: Tobacco; endorses a half pack per day for 40+ years. Denies alcohol and drug use. REVIEW OF SYSTEMS: General: Denies fevers or chills. Eyes: Denies vision changes. ENT: Denies nasal congestion. Respiratory: Denies cough or congestion. Respiratory: Endorses cough and congestion. Denies shortness of breath. Cardiovascular: Endorses chest pain. Gastrointestinal: Denies nausea , vomiting or diarrhea. Genitourinary: Denies incontinence or dysuria. Skin: Denies rashes or lesions. Musculoskeletal: Has pain and tenderness. Neurologic: Denies weakness or numbness. Psychiatric: Denies anxiety or depression. PHYSICAL EXAMINATION: VITAL SIGNS: Blood pressure 122/94, pulse 122, respiratory rate 18, T-max 98.1 , pulse oximetry 97% room air and current weight 127. GENERAL: Alert and oriented x4, no apparent distress, well-developed, well- nourished, obese and appropriately interactive. EYES: PERRLA, EOMI. ENT: Nasal mucosa within normal limits. Oropharynx within normal limits. NECK: Supple. No lymphadenopathy. CARDIOVASCULAR: Regular rate and rhythm. No murmur, rub or gallop. Radial pulses 2+, pedal pulses 2+. RESPIRATORY: Normal effort. No retractions. Wheezing bilaterally in all lung sosa. ABDOMEN: Soft and nontender to palpation. Positive bowel sounds. EXTREMITIES: No clubbing, no cyanosis, no edema. MUSCULOSKELETAL: Structure within normal limits. Tone within normal limits. NEUROLOGIC: No focal deficits. GCS 15. PSYCHIATRIC: Appropriate. LABORATORY DATA: CBC: 24.8, 13.5, 40.8 and 486. CMP: 135, 4.4, 104, 12, 29, 0.99 and 190. GFR 69. AST, ALT, alkaline phosphatase is 15, 44 and 94. Calcium, total protein, albumin, 9.7, 7.1 and 3.8. IMAGING DATA: EKG: Sinus tachycardia, left atrial enlargement. Chest x-ray: Right upper lobe atelectasis. CT of the chest negative for PE, positive for right upper lobe obstructions. ASSESSMENT AND PLAN: This is a 62-year-old female with a past medical history of squamous cell carcinoma with brain mets, complaining of chest pain, admitted for atypical chest pain, likely secondary to cancer pain versus gastroesophageal reflux disease. 1. Atypical chest pain. We admitted the patient to telemetry observation. We will provide the patient with a PPI in case the pain is due to gastroesophageal reflux disease as it initially occurred while she was lying down. We will order a BNP, and trend the patient's troponins (the initial was negative). This pain could be due to the patient's lung cancer. We will provide [place] 7.5/ 325 and morphine 2 mg q.2 hours for breakthrough pain. 3. Squamous cell carcinoma of the lung with brain mets. We will consult oncology in the morning and provide patient with a better pain control regimen. 4. Chronic conditions. We will restart her home medications. 5. Hypotension secondary to dehydration. We will provide the patient with fluids, normal saline at maintenance. DISPOSITION LENGTH OF HOSPITAL STAY: 1-2 days. Symptomatic medication will be provided. History and physical exam as well as management discussed with Dr. Garner. ALISA
[2017-11-29] MEDS ORDERED: Regadenoson 0.4 MG/5 ML SYRINGE ONE (13:17)
[2017-11-29] MEDS: Atorvastatin Calcium 10 MG TAB PO SCH (14:05)
--- NOTE | 2017-11-29 14:14 | CT ---
PRELIMINARY REPORT/[facility]/EMERGENCY AFTER HOURS PROCEDURE: EXAM: CT Angiography Chest With Intravenous Contrast CLINICAL HISTORY: 62 years old, female; Pain; Chest pain; Type not specified; Patient HX: R/O pe TECHNIQUE: Axial computed tomographic angiography images of the chest with intravenous contrast using pulmonary embolism protocol. CONTRAST: 100 mL of ISOVUE administered intravenously. COMPARISON: No relevant prior studies available. FINDINGS: Pulmonary arteries: No acute findings. No pulmonary embolism. Aorta: No acute findings. No thoracic aortic aneurysm. Lungs: Complete obstructive type collapse of the right upper lobe with mediastinal shift to the right . Right middle and lower lobes clear. Left lung clear. Pleural space: No acute findings. No significant effusion. No pneumothorax. Heart: No acute findings. No cardiomegaly. No significant pericardial effusion. No evidence of RV dys function. Bones/joints: Chronic degenerative spinal changes without acute fracture or dislocation. Soft tissues: No acute findings. Lymph nodes: There is soft tissue density either within or extrinsically compressing right upper lobe bronchus. There is prominent right hilar adenopathy, partially obscured by the collapsed lobe grossl y measuring 6.1 x 3.3 cm. There is confluent soft tissue density about the mediastinum, encasing the inferior aspect of the trachea as well as alfred, extending into the subcarinal region, likely reflec tive of neoplastic adenopathy. Prevascular and AP window adenopathy also noted. Upper abdomen: Liver demonstrates fatty infiltration without visible focal mass. IMPRESSION: Post-obstructive complete collapse right upper lobe as described, due either to endobroncial mass vs extrinsic compression by right hilar mass with associated mediastinal adenopathy. Findings highly sug gestive of neoplastic process, perhaps lymphoma or bronchogenic carcinoma. Bronchoscopic evaluation i s advised. No visible pulmonary embolism although branches of the right upper lobe arterial tree are not optimal ly evaluated due to lobar collapse. Thank you for allowing us to participate in the care of your patient. Dictated and Authenticated by: Marco Prado MD 11/29/2017 12:40 AM Central Time ([place] & [place]) FINAL REPORT CHEST CT ANGIOGRAM INCLUDING 3D RENDERING: EMERGENCY AFTER HOURS EXAM TIME: 12:04 a.m. DATE: 11/29/17. No significant Ct evidence for acute pulmonary embolism. Right upper lobe complete atelectasis secon grabiel to a large right hilar mass with occlusion of the right upper lobe bronchus and some compressive changes on the bronchus intermedius secondary to right hilar mass and associated mediastinal adenopa thy. Visualized upper abdomen was unremarkable. POS: [facility]
[2017-11-29] MEDS: metFORMIN 500 MG TAB PO SCH ×2 (14:33→16:15)
[2017-11-29] MEDS: Docusate 100 MG CAP PO SCH ×2 (14:33→19:53)
[2017-11-29] MEDS: Lisinopril 2.5 MG TAB PO SCH (14:33)
[2017-11-29] MEDS: glipiZIDE 5 MG TAB PO SCH ×2 (14:33→16:15)
[2017-11-29] MEDS: Dexamethasone 4 MG TAB PO SCH ×2 (14:33→16:15)
[2017-11-29] MEDS: Gabapentin 100 MG CAP PO SCH (14:34)
[2017-11-29] MEDS: Amlodipine 5 MG TAB PO SCH (14:34)
[2017-11-29] MEDS: Enoxaparin Sodium 40 MG/0.4 ML SYRINGE SC SCH (14:41)
--- NOTE | 2017-11-29 15:55 | NM ---
NUCLEAR MEDICINE STRESS CARDIAC SPECT WITH EF AND WALL MOTION: History: Chest pain, hypertension, diabetes mellitus and dyslipidemia. This is a Lexiscan Sestamibi stress study. Patient was injected with 30.5 mCi Technetium 99M Sestamib i intravenously for stress images. FINDINGS: No scan evidence for infarct or ischemia. LHR 0.32 EDV 61 ml EF 72% Myocardial perfusion wall motion: Wall motion is normal. IMPRESSION: Normal stress only cardiac spect with EF and wall motion. POS: [facility]
[2017-11-29 18:16] LABS: Lactic Acid 4.3 mmol/L (0.5-2.2)
[2017-11-29] MEDS ORDERED: Sodium Chloride 0.9% 1,000 ML IV SCH (18:30)
[2017-11-30] MEDS: Sodium Chloride 0.9% 1,000 ML IV SCH ×2 (00:21→08:20)
[2017-11-30 05:21] LABS: Lactic Acid 2.2 mmol/L (0.5-2.2)
[2017-11-30 05:33] LABS: Anion Gap 13 mmol/L (10-20); BUN (Urea Nitrogen) 23 mg/dL (9.8-20.1); Calc. Creatinine Clearance 115 mL/min (70-130); Calcium 9.6 mg/dL (7.8-10.44); Carbon Dioxide 22 mmol/L (22-29); Cardiac Risk 4.2 (Less than 4.5); Chloride 108 mmol/L (98-107); Cholesterol 180 mg/dl (< 200 Desired); Estimated GFR-MDRD Greater than 90; Glucose 117 mg/dL (70-105); HDL Cholesterol 43 mg/dL (>60 Neg Risk); LDL Cholesterol, Calculated 111 mg/dL; Potassium 4.5 mmol/L (3.5-5.1); Sodium 138 mmol/L (136-145); Triglycerides 128 mg/dL (Less than 150)
[2017-11-30] MEDS ORDERED: Levothyroxine Sodium 100 MCG TAB PO SCH (06:00)
[2017-11-30 06:15] LABS: Band 5 % (5-11); Hemoglobin 12.1 g/dL (12.0-16.0); Lymphocytes 17 % (21-51); MDiff Complete? YES; Mean Corpuscular HGB CONC 32.8 g/dL (32.0-36.0); Mean Corpuscular Hemoglobin 29.7 pg (27.0-31.0); Mean Corpuscular Volume 90.8 fl (81.0-99.0); Mean Platelet Volume 6.8 fL (7.4-10.4); Monocytes 9 % (0-10); Neutrophil 69 % (42-75); Platelet Count 432 thou/uL (130-400); RBC Distribution Width 12.5 % (11.5-14.5); Red Blood Cell (RBC) Count 4.05 mill/uL (4.20-5.40); White Blood Cell (WBC) Count 25.8 thou/uL (4.8-10.8)
[2017-11-30] MEDS: metFORMIN 500 MG TAB PO SCH (08:16)
[2017-11-30] MEDS: glipiZIDE 5 MG TAB PO SCH (08:16)
[2017-11-30] MEDS: Dexamethasone 4 MG TAB PO SCH (08:16)
[2017-11-30] MEDS: Nicotine 21 MG PATCH TD SCH (08:17)
[2017-11-30] MEDS: Amlodipine 5 MG TAB PO SCH (08:17)
[2017-11-30] MEDS: Gabapentin 100 MG CAP PO SCH (08:17)
[2017-11-30] MEDS: Docusate 100 MG CAP PO SCH (08:17)
[2017-11-30] MEDS: Atorvastatin Calcium 10 MG TAB PO SCH (08:17)
[2017-11-30] MEDS: Lisinopril 2.5 MG TAB PO SCH (08:17)
--- NOTE | 2017-11-30 08:39 | PDOC.FM ---
- Subjective Subjective: Patient resting comfortably this morning, no complaints at this time. No acute events overnight. Normal stress test yesterday. chest pain has resolved - Objective MAR Reviewed: Yes Vital Signs & Weight: Vital Signs (12 hours) Temp Pulse Resp BP BP Pulse Ox 11/30/17 08:17 94 11/30/17 08:15 98.5 F 94 18 11/30/17 08:03 98.5 F 97 18 137/82 95 11/30/17 04:16 98.3 F 94 18 141/69 H 97 11/29/17 22:31 84 12 Weight Weight 90.038 kg I&O: 11/29/17 11/30/17 12/01/17 06:59 06:59 06:59 Intake Total 200 4108 220 Output Total 1350 Balance -1150 4108 220 Result Diagrams: 11/30/17 04:17 11/30/17 04:17 <Alberto Carranza - Last Filed: 11/30/17 08:37> - Objective Vital Signs & Weight: Vital Signs (12 hours) Temp Pulse Resp BP BP Pulse Ox 11/30/17 13:27 108 H 16 98 11/30/17 11:22 99.2 F 112 H 24 H 119/76 96 11/30/17 08:17 94 11/30/17 08:15 98.5 F 94 18 11/30/17 08:03 98.5 F 97 18 137/82 95 11/30/17 04:16 98.3 F 94 18 141/69 H 97 Weight Weight 90.038 kg I&O: 11/29/17 11/30/17 12/01/17 06:59 06:59 06:59 Intake Total 200 4108 220 Output Total 1350 Balance -1150 4108 220 Result Diagrams: 11/30/17 04:17 11/30/17 04:17 <Anton Castro - Last Filed: 11/30/17 14:05> Phys Exam - Physical Examination Constitutional: NAD HEENT: moist MMs Respiratory: no wheezing, no rales Cardiovascular: RRR, no significant murmur Gastrointestinal: soft, non-tender Neurological: moves all 4 limbs Psychiatric: normal affect, A&O x 3 <Alberto Carranza - Last Filed: 11/30/17 08:37> Dx/Plan (1) Atypical chest pain Code(s): R07.89 - OTHER CHEST PAIN Status: Acute Plan: Chest pain has resolved since admission Cardiac workup negative -enzymes negative x 3 -stress negative with appropriate EF -normal EKGs Likely 2/2 to primary CA (2) Metastatic squamous cell carcinoma Code(s): C79.9 - SECONDARY MALIGNANT NEOPLASM OF UNSPECIFIED SITE; C80.1 - MALIGNANT (PRIMARY) NEOPLASM, UNSPECIFIED Status: Chronic Plan: SCC of lung with mets to brain Patient is scheduled for neurosurgery with Dr. Hall tomorrow (3) HLD (hyperlipidemia) Code(s): E78.5 - HYPERLIPIDEMIA, UNSPECIFIED Status: Chronic Plan: continue atorvastatin (4) Hypertension Code(s): I10 - ESSENTIAL (PRIMARY) HYPERTENSION Status: Chronic Plan: Well controlled overnight continue home regimen (5) Diabetes mellitus Code(s): E11.9 - TYPE 2 DIABETES MELLITUS WITHOUT COMPLICATIONS Status: Chronic Plan: Continue glipizide and metformin did not require SSI yesterday (6) Bipolar 1 disorder Code(s): F31.9 - BIPOLAR DISORDER, UNSPECIFIED Status: Acute - Plan Plan: Plan: -discharge today pending NS recommendations <Alberto aCrranza - Last Filed: 11/30/17 08:37> Attending Addendum - Attending Addendum I personally evaluated the patient and discussed the management with Dr. Carranza I agree with the History, Examination, Assessment and Plan documented above with any addition or exceptions noted below. Patient stable at this time ok for dismissal, plans for Neurosurgery tomorrow. <Anton Castro - Last Filed: 11/30/17 14:05>
[2017-11-30] MEDS ORDERED: Aspirin 325 MG TAB PO SCH (09:00)
[2017-11-30 12:21] VITALS: BP 119/76; TEMP 99.2
[2017-11-30] MEDS: Enoxaparin Sodium 40 MG/0.4 ML SYRINGE SC SCH (12:34)
--- NOTE | 2017-12-01 13:56 | DIS-2 ---
DATE OF ADMISSION: 11/29/2017 DATE OF DISCHARGE: 11/30/2017 RESIDENT: Dr. Alberto Carranza. ADMITTING ATTENDING: Dr. Christiano Garner. DISCHARGE ATTENDING: Dr. Dominic Buckley. CONSULTS: None. PROCEDURES: 1. Chest x-ray showing right upper lobe atelectasis. 2. CT of the chest showing no evidence for pulmonary embolism. Right upper lobe complete atelectasi s secondary to large right hilar mass with occlusion of the right upper lobe bronchus and some compre ssive changes of the bronchus intermedius secondary to right hilar mass associated with mediastinal a denopathy. 3. Nuclear medicine stress test showing normal wall motion with an ejection fraction of 72%. PRIMARY DIAGNOSIS: Atypical chest pain, secondary to metastatic cancer. SECONDARY DIAGNOSES: 1. Squamous cell carcinoma of the lungs with metastases. 2. Type 2 diabetes. 3. Hypertension. 4. Hyperlipidemia. 5. Bipolar disorder. 6. Tobacco abuse. DISCHARGE MEDICATIONS: 1. Sertraline 50 mg p.o. q.a.m. 2. Benazepril 20 mg p.o. q.a.m. 3. Seroquel 600 mg p.o. q.h.s. 4. Pravastatin 40 mg p.o. q.a.m. 5. Metformin 1000 mg p.o. b.i.d. with meals. 6. Glipizide 5 mg p.o. b.i.d. 7. Amlodipine 5 mg p.o. q.a.m. 8. Dexamethasone 4 mg p.o. b.i.d. with meals 9. Levothyroxine 100 mcg p.o. daily. 10. Lisinopril 2.5 mg p.o. q.a.m. 11. Fluticasone propionate nasal spray, 1 nasal spray daily p.r.n. DISCONTINUED MEDICATIONS: 1. [place]. 2. Morphine. 3. Guaifenesin. HISTORY OF PRESENT ILLNESS/HOSPITAL COURSE: A 62-year-old female with a recently diagnosed squamous cell carcinoma with metastases to the brain, presenting with chest pain that is substernal and pressu re-like in the ER. The patient was admitted for chest pain rule out. The chest pain was reproducibl e on palpation, unaffected with nitrate and morphine therapy. Due to patient's impending neurosurger y, it was decided to send patient for cardiac clearance. The patient passed her stress test with no evidence of reversible ischemia and normal ejection fraction. The patient had appropriate CBC and BM P while in the hospital outside of a leukocytosis that has been present since cancer diagnosis. All chronic medical conditions were controlled while in the hospital, and she was discharged in the stabl e condition. DISPOSITION: Stable. DISCHARGE INSTRUCTIONS: 1. Location: Home. 2. Diet: Heart healthy and consistent carbohydrate. 3. Activity: As tolerated. 4. Followup: With Neurosurgery appropriately. Follow up with PCP in 7 to 10 days.
--- NOTE | 2018-01-02 18:28 | EKG ---
Test Reason : CP Blood Pressure : / mmHG Vent. Rate : 121 BPM Atrial Rate : 121 BPM P-R Int : 120 ms QRS Dur : 078 ms QT Int : 324 ms P-R-T Axes : 049 040 047 degrees QTc Int : 460 ms Sinus tachycardia with frequent Premature ventricular complexes Possible Left atrial enlargement Confirmed by CHINMAY UNDERWOOD ([id number]), health editor MONICA ABDULLAHI ([id number]) on 01/02/2018 6:27:35 PM Referred By: ANURAG Confirmed By:CHINMAY UNDERWOOD
--- NOTE | 2018-02-22 15:27 | STRESS ---
Acquisition Time: 2017-11-29 12:33:02 Total Exercise Time: 00:01:00 Test Indications: CHEST PAIN Medications: Protocol: LEXISCAN Max HR: 113 BPM 70% of Pred: 160 BPM Max BP: 112/068 mmHG Max Work Load: 1.0 METS RESTING ECG: SINUS TACHYCARDIA AT 100 BPM WITH EARLY RIGHT BUNDLE BRANCH BLOCK SYMPTOMS: SHORTNESS OF BREATH APPROPRIATE BLOOD PRESSURE RESPONSE FOR ADENOSINE ECTOPY: NONE ECG RESPONSE: NO SIGNIFICANT CHANGES INTERPRETATION: NEGATIVE ECG/AWAIT NUCLEAR IMAGES FOR DEFINITIVE DIAGNOSIS Confirmed by SHON FRIED ELLEN ([id number]) on 02/22/2018 3:26:45 PM Referred By: MD Luly ODELL Confirmed By:AUNDREA FRIED PA-C
== END 2017-11-30 14:56 | disposition home or self-care (01) ==
LOC: ERS 21:58 → 2SW 11-29 01:30
PROVIDERS: ADMIT Student in an Organized Health Care Education/Training Program; ATTEND Student in an Organized Health Care Education/Training Program
DX: C34.90 Malignant neoplasm of unspecified part of unspecified bronchus or lung (principal); C79.31 Secondary malignant neoplasm of brain; R07.89 Other chest pain; E11.9 Type 2 diabetes mellitus without complications; I10 Essential (primary) hypertension; E78.5 Hyperlipidemia, unspecified; F31.9 Bipolar disorder, unspecified; F17.210 Nicotine dependence, cigarettes, uncomplicated; I95.9 Hypotension, unspecified; E86.0 Dehydration; Z79.52 Long term (current) use of systemic steroids; Z79.2 Long term (current) use of antibiotics; Z79.4 Long term (current) use of insulin; Z79.899 Other long term (current) drug therapy; Z91.040 Latex allergy status
CPT/HCPCS: 36415; 36416; 71045; 71275; 78452; 80048; 80053; 80061; 82553; 82607; 83605; 83880; 84484; 85025; 90471; 90670; 93005; 93017; 94640; 94760; 96361; 96374; A9500; G0009; G0378; J1650; J2785; J2930; J7620; J8540

== ENCOUNTER 2017-12-22 13:10 | Inpatient (IN) | payer MEDICARE ==
[2017-12-22 13:44] LABS: pH, Arterial 7.28 (7.35-7.45)
[2017-12-22 13:45] LABS: Actual Bicarbonate (HCO3a) 16.3 mEq/L (22-26); Base Excess (BEa) -9.7 mEq/L (0 (+/-) 2.5); CO2 Tension 35.8 mmHg (35.0-45.0); Hematocrit-ABG 36.8 % (36.0-47.0); Hemoglobin (Hb) 10.5 g/dL (12.0-16.0); O2 Tension (PaO2) 51.1 mmHg (80.0-100.0)
[2017-12-22 13:46] LABS: Analyzer IN Cardio ER; Calcium, Ionized 1.3 mmol/L (1.12-1.30); Puncture Site L.B.
--- NOTE | 2017-12-22 13:49 | RAD ---
PORTABLE AP CHEST RADIOGRAPH: Date: 12-22-17 History: Dyspnea. Comparison: 12-02-17 FINDINGS: Mass like density in the right hilar region is again present and there is wedge shaped area of increa sed density again seen in the right upper lobe and right lung apex likely related to post obstructive atelectasis. There is increased density seen in the region of the lingula and left lung base which may be related to pneumonitis. Cardiac silhouette is magnified by projection. Osseous structures appe ar intact. No other interval change. IMPRESSION: 1. Mass like density right hilar region with wedge shaped area of increased density again seen in the right upper lobe and right lung apex, probably related to post obstructive atelectasis, also seen on prior study. 2. Increased interstitial and patchy density left lung base which may be related to aspiration pneumo nitis or developing pneumonia. Follow up to resolution is recommended. POS: [facility]
[2017-12-22] MEDS ORDERED: Rocuronium Bromide 50 MG/5 ML VIAL ONE (13:56)
[2017-12-22 14:09] LABS: ALT (SGPT) 30 U/L (8-55); AST (SGOT) 25 U/L (5-34); Albumin 3.7 g/dL (3.5-5.0); Alkaline Phosphatase 126 U/L (40-150); Anion Gap 20 mmol/L (10-20); BUN (Urea Nitrogen) 20 mg/dL (9.8-20.1); Bilirubin, Total Less than 0.2 mg/dL (0.2-1.2); Calc. Creatinine Clearance 0 mL/min (70-130); Calcium 9.8 mg/dL (7.8-10.44); Carbon Dioxide 15 mmol/L (22-29); Chloride 103 mmol/L (98-107); Estimated GFR-MDRD 48; Globulin 4.2 g/dL (2.4-3.5); Glucose 466 mg/dL (70-105); Potassium 4.8 mmol/L (3.5-5.1); Protein, Total 7.9 g/dL (6.0-8.3); Sodium 133 mmol/L (136-145)
[2017-12-22] MEDS ORDERED: Propofol 1,000 MG/100 ML VIAL IV ONE (14:10)
[2017-12-22 14:11] LABS: Hemoglobin 10.9 g/dL (12.0-16.0); Mean Corpuscular HGB CONC 31.9 g/dL (32.0-36.0); Mean Corpuscular Hemoglobin 29.5 pg (27.0-31.0); Mean Corpuscular Volume 92.3 fl (81.0-99.0); Mean Platelet Volume 6.9 fL (7.4-10.4); Platelet Count 519 thou/uL (130-400); RBC Distribution Width 14.3 % (11.5-14.5); Red Blood Cell (RBC) Count 3.69 mill/uL (4.20-5.40); White Blood Cell (WBC) Count 35.3 thou/uL (4.8-10.8)
[2017-12-22 14:14] LABS: CKMB 0.5 ng/mL (0-6.6); Troponin I Less than 0.010 ng/mL (< 0.028)
[2017-12-22 14:24] LABS: Band 19 % (5-11); Lymphocytes 9 % (21-51); MDiff Complete? YES; Metamyelocyte 4 % (0-0); Monocytes 3 % (0-10); Myelocyte 2 % (0-0); Neutrophil 62 % (42-75); PLT Morphology Comment Appears Increased; Polychromasia SLIGHT = 2-3 cells (100X) (0-2/hpf); Reactive Lymphocytes 1 % (0-10)
[2017-12-22 14:57] LABS: Bilirubin Negative (Negative); Blood, Urine Moderate (Negative); Clarity CLOUDY (Clear); Glucose, Urine (Dipstick) 250 mg/dL (Negative); Leukocyte Moderate (Negative); Nitrite Negative (Negative); Protein, Urine (Dipstick) 30 mg/dL (Neg-Trace); Specific Gravity, Urine 1.018 (1.002-1.036); Urobilinogen 0.2 mg/dL (0.2-1.0)
[2017-12-22 14:58] LABS: Bacteria/HPF 4+ HPF (None Seen); RBC/HPF 0-3 HPF (0-3)
--- NOTE | 2017-12-22 14:59 | RAD ---
KUB: HISTORY: Injury. Tube placement. FINDINGS: This film shows an NG tube. The tip is in the left upper quadrant. It overlies the fundus region of the stomach. The bowel gas pattern appears nonobstructed. IMPRESSION: Nasogastric tube with the tip at the fundus region of the stomach. POS: [facility]
[2017-12-22] MEDS ORDERED: Piperacillin/Tazobactam 4.5 GM in Sodium Chloride 0.9% 100 ML IVPB SCH (15:00)
--- NOTE | 2017-12-22 15:04 | RAD ---
PORTABLE CHEST 1 VIEW: DATE: 12/22/17. TIME: 2:19 p.m. HISTORY: Right lobe lung cancer, shortness of breath. FINDINGS/IMPRESSION: Comparison is made with the exam of 1:28 p.m. from the same date. Interval development of atelectatic change is seen in the right upper lobe. There is patchy airspace disease in the left lung. Interval placement of an endotracheal tube is seen with tip at the level of the alfred. Nasogastric tube can be traced into the stomach. Discussed over the telephone with ER physician, Dr. Dillon Mckeon at 2:40 p.m. CODE CR POS: OFF
[2017-12-22 15:07] LABS: Hyaline Casts/LPF 0-3 HYALINE CAST LPF (0-3 Hyaline)
[2017-12-22 15:07] LABS: Actual Bicarbonate (HCO3a) 18.5 mEq/L (22-26); CO2 Tension 46.8 mmHg (35.0-45.0); O2 Tension (PaO2) 71.9 mmHg (80.0-100.0); pH, Arterial 7.22 (7.35-7.45)
[2017-12-22 15:08] LABS: Renal Epithelial None Seen HPF (0-3); Transitional Epithelial 0-3 HPF (0-3)
[2017-12-22 15:08] LABS: Analyzer IN Cardio ER; Calcium, Ionized 1.3 mmol/L (1.12-1.30); Hemoglobin (Hb) 11.2 g/dL (12.0-16.0); Puncture Site L.B.
--- NOTE | 2017-12-22 15:20 | RAD ---
PORTABLE AP CHEST X-RAY: 12/22/2017 HISTORY: Repositioning of endotracheal tube. COMPARISON: 12/22/2017 FINDINGS: Endotracheal tube is noted in place with the tip overlying the T5 vertebral body and above the level of the alfred. Nasogastric tube is again noted in place, which courses into the left upper quadrant and incompletely imaged or evaluated. There are increased interstitial and patchy opacities within t he left mid lung zone and at the left lung base, worrisome for an infectious process. There is incre ased opacity again seen in the right upper lobe, likely related to post obstructive due to right hay r mass. No other interval change. IMPRESSION: 1. Right hilar mass with increased opacity, right lung apex and right upper lobe, stable from prior exam and likely related to post obstructive changes. 2. Increased interstitial and patchy densities, left mid lung zone and lung base, worrisome for pneu monia. 3. Endotracheal tube and nasogastric tube noted in place. The endotracheal tube has been withdrawn, with the tip now above the level of the alfred. POS: [facility]
--- NOTE | 2017-12-22 15:54 | PDOC.FPRHP ---
- History of Present Illness Chief Complaint: SOB History of Present Illness: Historian: This is a 62 y/o F with a PMHx of Stage IV Squamous Cell Lung Ca with mets to the brain that presents due to SOB that began around 1pm today. She woke her up and called EMS. She was found by EMS to be hypoxic to 50% on RA. The patient had been having progressively worsened SOB over the past several weeks as well as a productive cough since October. The patient's has not noticed that the cough has worsened. The patient can only walk a few steps without getting SOB. She uses nebulizers and inhalers at home and has been using them more frequently. The patient had an appointment scheduled with her PCP, Dr. Salinas, at 3pm today to discuss trying to get oxygen at home for her worsened SOB. The patient has continued to smoke 1ppd. The rest of the history was difficult to obtain due to the patient being intubated at the time of my exam. The reports that she has not complained of any F/C, N/V lately. ED Course: The patient was intubated on arrival to the ED due to hypoxia and given 100mg IV angela, 20mg IV etomidate, 1L NS, 1g vancomycin, 4.5g zosyn, and put on propofol for sedation. - Allergies/Adverse Reactions Allergies Allergy/AdvReac Type Severity Reaction Status Date / Time latex Allergy rash, Verified 12/01/17 14:18 burning - Home Medications Medication Instructions Recorded Confirmed Type Benazepril HCl 20 mg PO QAM 03/11/15 11/29/17 History Sertraline HCl [Zoloft] 50 mg PO QAM 03/11/15 12/22/17 History Pravastatin Sodium [Pravachol] 40 mg PO QAM 11/06/17 11/29/17 History QUEtiapine Fumarate [SEROquel] 600 mg PO HS 11/06/17 11/29/17 History amLODIPine Besylate [Norvasc] 10 mg PO QAM 11/06/17 12/22/17 History glipiZIDE [Glipizide] 1 tab PO BID-AC 11/06/17 12/22/17 History metFORMIN HCl [Metformin HCl] 1,000 mg PO BID-WM 11/06/17 12/22/17 History Levothyroxine Sodium [Synthroid] 100 mcg PO 0600 #30 tab 11/10/17 11/29/17 Rx Nicotine [Nicoderm CQ] 14 mg TD Q24HR #30 patch 11/10/17 11/29/17 Rx Fluticasone Propionate [Flonase 1 gm NASAL DAILY PRN 11/27/17 11/29/17 History Nasal [place]] Lisinopril [Zestril] 2.5 mg PO QAM 11/27/17 11/29/17 History Amoxicillin/Potassium Clav 875 mg PO Q12HR 12/04/17 12/04/17 History [Augmentin] Dexamethasone [Decadron] 2 mg PO Q6H 12/22/17 12/22/17 History - History PMHx: 1. T2DM 2. HTN 3. HLD 4. Bipolar d/o 5. Squamous cell carcinoma of the lung with brain metastasis 6. Hypothyroidism 7. Tobacco abuse 8. Seasonal allergies PSHx: Craniotomy (Oct 2017), FHx: Cancer and DM in grandparents Social: , 3 children, 1 ppd, occasional alcohol use, denies illegal drug use PCP: Brian Salinas at [facility] - Review of Systems ROS unobtainable: due to endotracheal tube (Some ROS obtained by ) General: denies: fever/chills Respiratory: reports: cough, shortness of breath Cardiovascular: denies: chest pain Gastrointestinal: denies: nausea, vomiting Neurological: denies: syncope, seizure - Vital signs BP: 123/78 HR: 139 RR: 16 Tmax: 98.0 Pox: 92% on vent Wt: 84.82kg - Physical Exam -Constitutional: intubated, sedated HEENT: normocephalic and atraumatic, PERRLA, MMM, oropharynx clear (ET tube in place) -Heart: Tachycardic, regular rhythm, no murmurs/gallops/rubs -Lungs: Diminished breath sounds in RUL, clear to auscultation on the L, no wheezes Abdomen: soft, bowel sounds present, no masses/distention Musculoskeletal: normal structure, normal tone Skin: no rash/lesions, good turgor FMR H&P: Results - Labs Result Diagrams: 12/22/17 13:31 12/22/17 13:31 Lab results: WBC 35.3 thou/uL (4.8-10.8) H 12/22/17 13:31 Hgb 10.9 g/dL (12.0-16.0) L 12/22/17 13:31 Hct 34.1 % (36.0-47.0) L 12/22/17 13:31 MCV 92.3 fl (81.0-99.0) 12/22/17 13:31 Plt Count 519 thou/uL (130-400) H 12/22/17 13:31 Band Neuts % (Manual) 19 % (5-11) H 12/22/17 13:31 ABG pH 7.22 (7.35-7.45) L* 12/22/17 14:55 ABG pCO2 46.8 mmHg (35.0-45.0) H 12/22/17 14:55 ABG pO2 71.9 mmHg (80.0-100.0) L 12/22/17 14:55 Sodium 133 mmol/L (136-145) L 12/22/17 13:31 Potassium 4.8 mmol/L (3.5-5.1) 12/22/17 13:31 Chloride 103 mmol/L (98-107) 12/22/17 13:31 Carbon Dioxide 15 mmol/L (22-29) L 12/22/17 13:31 BUN 20 mg/dL (9.8-20.1) 12/22/17 13:31 Creatinine 1.36 mg/dL (0.6-1.1) H 12/22/17 13:31 Glucose 466 mg/dL (70-105) H 12/22/17 13:31 Calcium 9.8 mg/dL (7.8-10.44) 12/22/17 13:31 Total Bilirubin Less than 0.2 mg/dL (0.2-1.2) L 12/22/17 13:31 AST 25 U/L (5-34) 12/22/17 13:31 ALT 30 U/L (8-55) 12/22/17 13:31 Alkaline Phosphatase 126 U/L (40-150) 12/22/17 13:31 CK-MB (CK-2) 0.5 ng/mL (0-6.6) 12/22/17 13:31 B-Natriuretic Peptide 98.8 pg/mL (0-100) 12/22/17 13:31 Serum Total Protein 7.9 g/dL (6.0-8.3) 12/22/17 13:31 Albumin 3.7 g/dL (3.5-5.0) 12/22/17 13:31 Urine Ketones Negative mg/dL (Negative) 12/22/17 14:48 Urine Blood Moderate (Negative) H 12/22/17 14:48 Urine Nitrite Negative (Negative) 12/22/17 14:48 Ur Leukocyte Esterase Moderate (Negative) H 12/22/17 14:48 Urine RBC 0-3 HPF (0-3) 12/22/17 14:48 Urine WBC 11-20 HPF (0-3) H 12/22/17 14:48 Ur Squamous Epith Cells 11-20 HPF (0-3) H 12/22/17 14:48 Urine Bacteria 4+ HPF (None Seen) H 12/22/17 14:48 - Radiology Interpretation Chest x-ray Status: image reviewed by me, report reviewed by me Additional comment: RUL wedge shaped density consistent with post-obstructive atelectasis. LLL consolidation, concerning for pneumonia FMR H&P: A/P - Problem List (1) Acute respiratory failure with hypoxia Current Visit: Yes Status: Acute Code(s): J96.01 - ACUTE RESPIRATORY FAILURE WITH HYPOXIA (2) Sepsis Current Visit: Yes Status: Acute Code(s): A41.9 - SEPSIS, UNSPECIFIED ORGANISM Qualifiers: Sepsis type: sepsis due to unspecified organism Qualified Code(s): A41.9 - Sepsis, unspecified organism (3) VIDYA (acute kidney injury) Current Visit: Yes Status: Acute Code(s): N17.9 - ACUTE KIDNEY FAILURE, UNSPECIFIED (4) Metastatic squamous cell carcinoma Current Visit: No Status: Chronic Code(s): C79.9 - SECONDARY MALIGNANT NEOPLASM OF UNSPECIFIED SITE; C80.1 - MALIGNANT (PRIMARY) NEOPLASM, UNSPECIFIED (5) Bipolar 1 disorder Current Visit: No Status: Acute Code(s): F31.9 - BIPOLAR DISORDER, UNSPECIFIED (6) Diabetes mellitus type 2 in obese Current Visit: No Status: Acute Code(s): E11.69 - TYPE 2 DIABETES MELLITUS WITH OTHER SPECIFIED COMPLICATION; E66.9 - OBESITY, UNSPECIFIED (7) Tobacco abuse Current Visit: No Status: Acute Code(s): Z72.0 - TOBACCO USE (8) HLD (hyperlipidemia) Current Visit: No Status: Chronic Code(s): E78.5 - HYPERLIPIDEMIA, UNSPECIFIED Qualifiers: Hyperlipidemia type: unspecified (9) Hypertension Current Visit: No Status: Chronic Code(s): I10 - ESSENTIAL (PRIMARY) HYPERTENSION Qualifiers: Hypertension type: essential hypertension - Plan 1. Acute Hypoxic Respiratory Failure Patient became hypoxic to 50% per EMS report. This could be 2/2 pneumonia vs atelectasis vs PE. She was intubated in the ED and is on the vent with propofol for sedation. -Dr. Ribeiro with Pulm has been consulted, appreciate recs -Continue ventilator support -CTA to r/o PE -Repeat ABG 2. Sepsis 2/2 PNA Patient was recently hospitalized for craniotomy for met resection. Will cover for HAP. s/p 2L NS bolus -Levaquin day 1, Vanc day 1, Zosyn day 1 -Lactate -NS @ 125 3. Stage IV squamous cell lung cancer with brain mets Dr. Dean is oncologist -Consult Jermaine in AM 4. VIDYA Cr increased from baseline, s/p 2L NS bolus in ED -NS @ 125 -Monitor with BMP 5. HTN -BP is controlled right now, will monitor and hold BP meds as pt is intubated 6. HLD -Will restart meds once patient is no longer intubated 7. DM2 Glucose elevated initially, will monitor closely -SSI, Accuchecks q4h 8. Tobacco Abuse -Mailing Machine Helper on cessation when patient is no longer intubated 9. Bipolar Disorder -Restart home meds once patient no longer intubated 10. Hypothyroidism -Restart home meds once patient no longer intubated Disposition/LOS: Admit to ICU Length of stay likely greater than 2 days FMR H&P: Upper Level - Pertinent history 62 yo AAF presents with acute worsening of chronic shortness of breath. Symptoms have been worsening despite neb treatments and she woke her from sleep at 1pm this afternoon stating she can't breath. At that point she had already called EMS. She had an appointment at our office at 3 pm because of her progressive symptoms. She has had increasing dyspnea on exertion. She has a chronic cough, productive, and continues to smoke 1 ppd. He has not noted cough to be worsening and does not believe she has had any fever, chills, n/v/d or sick contacts. Per ER records, patient was found to have an O2 sat of 50% upon arrival of EMS and was 88% on non-rebreather in ER prior to intubation. ABG 7. /46.7/71.9 - Pertinent findings PMHx: T2DM HTN HLD Bipolar d/o Squamous cell carcinoma of the lung with brain metastasis Hypothyroidism Tobacco abuse Seasonal allergies PSHx: Craniotomy (Oct 2017), FHx: Cancer and DM in grandparents Social Hx: , 3 children, 1 ppd, occasional alcohol use, denies illegal drug use Allergies: NKDA Medications: unable to recall Per recent D/C summary: Sertraline 50mg qAM Benzapril 20mg qD Seroquel 600mg qHS Pravastatin 40mg qD Metformin 1000mg BID Glipizide 5 mg BID Amlodipine 5mg qD Dexamethasone 4mg PO BID Levothyroxine 100 mcg q0600 Nicotine 14 mg q24h Lisinopril 2.5mg PO qAM Fluticasone 1gm daily PE: On Ventilator, SIMV, Vc 500 mL Peep 7, FiO2 100%, Psupp 10 mmHg BP 112/78 P 120 bpm 99% RR 18 Gen: intubated, sedated HEENT: MMM, PERRRL, neck supple, ET tube in place, nares clear CV: Tachycardic, no murmur noted RESP: CTA on L, R side with diminished air entry throughout worse at apex Abd: soft, nontender, BS present EXT: dry skin, no edema, pulses 2+ in all extremities Neuro: sedated, PERRL, no focal deficits documented prior to intubation Pertinent labs: WBC 35.3 (19% bands), Hgb 10.9, Hct 24.1, MCV 92.3, Platelets 519, Na 133, K 4.8 , Cl 103, Co2 15, BUn 20, Cr 1.36, GFR 48, ABG 7.22/46.7/71.9 - Plan Date/Time: 12/22/17 1545 I, Maryan Cameron MD, have evaluated this patient and agree with findings/plan as outlined by internal audit senior manager resident. Pertinent changes/additions are listed here. 62 yo AAF with recent diagnosis of stage IV squamous cell carcinoma s/p recent craniotomy presents with acute hypoxic respiratory failure and sepsis 2/2 PNA with recent admission within last month. 1. Acute hypoxic respiratory failure: Intubated and sedated. O2 stable. Will obtain ABG after 1 hour on vent. Appreciate Dr. Ribeiro's assistance 2. Sepsis 2/2 PNA: Atelectasis in RUL and RL apex and increased interstitial and patchy density in L lung base. BCx, UCx sent. Started on Vanc and Zosyn in ER. Since patient was hospitalized in the last month, will continue with HCAP coverage. S/p 1 L fluid bolus. Getting 2nd L now and will continue IVNS @ 125 mL /hr. 2. Stage IV squamous cell carcinoma of R lung with brain metastasis: Notified Dr. Dean patient is here and will consult in a.m. She has not yet seen him in clinic. 3. HTN: Well-controlled. Will monitor and start home meds when tolerating PO 4. DM: ACHS accuchecks and mild SSI. Will start home meds once tolerating PO 5. HLD: Home medication once tolerating PO 6. Hypothyroidism: Home levothyroxine once tolerating PO 7. Tobacco abuse: Will discuss cessation 8. Bipolar d/o: Will resume home sertraline, seroquel once tolerating PO PPX: Lovenox and pepcid
[2017-12-22] MEDS ORDERED: Ondansetron ODT 4 MG TAB SL PRN (16:56)
[2017-12-22] MEDS ORDERED: Acetaminophen 325 MG TAB PO PRN (16:56)
[2017-12-22] MEDS ORDERED: Ondansetron HCl/PF 4 MG/2 ML Vial IVP PRN (16:56)
[2017-12-22] MEDS ORDERED: Fentanyl 20 MCG/ML 250 ML IVPB SCH ×2 (16:57→17:51)
[2017-12-22] MEDS ORDERED: DISCONTINUE PREVIOUS NARCOTIC PAIN MEDICATIONS AND BENZODIAZEPINES FS SCH ×2 (16:57→17:51)
[2017-12-22] MEDS ORDERED: fentaNYL Citrate/PF 2,000 MCG in Sodium Chloride 0.9% 60 ML IV SCH ×2 (17:00→18:00)
[2017-12-22 17:18] LABS: Actual Bicarbonate (HCO3a) 17.4 mEq/L (22-26); Base Excess (BEa) -8.3 mEq/L (0 (+/-) 2.5); CO2 Tension 36.5 mmHg (35.0-45.0); Calcium, Ionized 1.2 mmol/L (1.12-1.30); Hematocrit-ABG 34.1 % (36.0-47.0); Hemoglobin (Hb) 9.8 g/dL (12.0-16.0); O2 Tension (PaO2) 75.4 mmHg (80.0-100.0); Puncture Site RAR
[2017-12-22 17:19] LABS: ALV-art Gradient 591.975 (0-20)
[2017-12-22 17:42] LABS: Troponin I 0.013 ng/mL (< 0.028)
[2017-12-22] MEDS ORDERED: Dextrose 5% in Water 1,000 ML IV PRN (17:47)
[2017-12-22] MEDS ORDERED: Insulin Regular 300 UNITS/3 ML VIAL SC PRN (17:47)
[2017-12-22] MEDS ORDERED: CCU Electrolyte Replacement 1 EACH FS ONE (17:47)
[2017-12-22] MEDS ORDERED: Dextrose 50% Abboject 50 ML SYRINGE SLOW IVP PRN (17:47)
[2017-12-22] MEDS ORDERED: Sedation Protocol FS ONE (17:47)
[2017-12-22] MEDS ORDERED: Potassium Phosphate 12 MMOL in Sodium Chloride 0.9% 250 ML 250 ML IV PRN (17:51)
[2017-12-22] MEDS ORDERED: Magnesium 2 GM/NS 0.9% 100 ML 2 GM in Premix Bag 1 BAG IVPB PRN (17:51)
[2017-12-22] MEDS ORDERED: Potassium Chloride 20 MEQ TAB PO PRN (17:51)
[2017-12-22] MEDS ORDERED: Potassium Phosphate 9 MMOL in Sodium Chloride 0.9% 100 ML IVPB PRN (17:51)
[2017-12-22] MEDS ORDERED: CCU ELECTROLYTE REPLACEMENT PROTOCOL FS PRN (17:51)
[2017-12-22] MEDS ORDERED: Magnesium Oxide 400 MG TAB PO PRN ×2 (17:51)
[2017-12-22] MEDS ORDERED: Potassium Chloride 40 MEQ in Sodium Chloride 0.9% 250 ML 250 ML IVPB PRN (17:51)
[2017-12-22] MEDS ORDERED: Potassium Chloride 40 MEQ in Premix Bag 1 BAG IVPB PRN (17:51)
[2017-12-22] MEDS ORDERED: Propofol 1,000 MG/100 ML VIAL IV PRN (17:51)
[2017-12-22] MEDS ORDERED: Potassium Phosphate 15 MMOL in Sodium Chloride 0.9% 250 ML 250 ML IV PRN (17:51)
[2017-12-22] MEDS: Insulin Regular 300 UNITS/3 ML VIAL SC PRN (18:07)
[2017-12-22] MEDS: Lorazepam 2 MG/ML VIAL SLOW IVP PRN ×2 (18:13→22:58)
[2017-12-22] MEDS: Sodium Chloride 0.9% 1,000 ML IV SCH ×3 (18:19→20:10)
[2017-12-22] MEDS: Piperacillin/Tazobactam 4.5 GM in Sodium Chloride 0.9% 100 ML IVPB SCH ×2 (19:56→22:59)
[2017-12-22 20:07] LABS: Troponin I 0.022 ng/mL (< 0.028)
[2017-12-22] MEDS: Propofol 1,000 MG/100 ML VIAL IV PRN (23:04)
[2017-12-23 00:02] LABS: Lactic Acid 3.1 mmol/L (0.5-2.2)
--- NOTE | 2017-12-23 01:35 | CON ---
DATE OF CONSULTATION: 12/22/2017 HISTORY OF PRESENT ILLNESS: Ms. Arevalo is an unfortunate 62-year-old female with metastatic squamous cell carcinoma of the lung. She was seen by me at the beginning of November after she had a resection of a brain met. She was mechanically ventilated after surgery and awakened and was easily extubated. She was referred for radiation and has been undergoing radiotherapy to the tumor bed. Oncology has b een awaiting completion of radiotherapy to start chemotherapy. She apparently developed shortness of breath today. She was transferred here to the hospital and sub sequently intubated. She has also had a bad cough. She has had very limited functional status. She can only walk a few s teps before she gets short of breath on her baseline. Unfortunately, she continues to smoke. She subsequently has been admitted and transferred to the Critical Care Unit mechanically ventilated. PAST MEDICAL HISTORY: Prior to the diagnosis for malignancy is remarkable for, 1. Diabetes. 2. Hypertension. 3. Lipid disorder. 4. History of bipolar disorder. 5. History of tonsillectomy. SOCIAL HISTORY: She does not drink alcohol. ALLERGIES: She has no drug allergies. FAMILY HISTORY: Positive for cancer in multiple family members. MEDICATIONS: Earlier this month, she was on Zoloft, Seroquel, Pravachol, nicotine, metformin, lisino pril, Synthroid, glipizide, Flonase, Decadron, benazepril, and amlodipine. REVIEW OF SYSTEMS: Not obtainable since she is intubated. There was no family available when I exam ined her. PHYSICAL EXAMINATION: VITAL SIGNS: Blood pressure 93/72, heart rate is 104, respiratory rate is in the 20s. HEENT: Pupils are equal and they react. Sclerae are anicteric. NECK: Without lymphadenopathy. LUNGS: Remarkable for coarse equal breath sounds. HEART: Regular rhythm. S1 and S2 are normal. ABDOMEN: Soft and nontender. EXTREMITIES: Without clubbing, cyanosis, or edema. NEUROLOGIC: Grossly nonfocal. LABORATORY DATA: White count 35.3, hemoglobin 10.9, platelets 519,000. She has 19% bands. Sodium 1 33, potassium 4.8, chloride 103, bicarbonate 15, BUN 20, creatinine 1.36, glucose 466. Chest radiograph shows an alveolar infiltrate in her left base. IMPRESSION: 1. Pneumonia with respiratory failure. 2. Atelectasis of her right upper lobe secondary to endobronchial disease (squamous cell malignancy) . There was no reason to bronchoscope her. 3. Leukocytosis with a left shift, most likely associated with her pneumonia. 4. Reported history of ongoing tobacco use. 5. History of brain metastases. 6. Diabetes. 7. Hypertension. 8. Hypothyroidism, on thyroid replacement. 9. Anemia, most likely of chronic disease. 10. Non-anion gap metabolic acidosis. 11. Chronic kidney disease. 12. Diabetes out of control. PH 7.22, pCO2 of 46, and pO2 of 71. Ventilatory rate has been increased. Her prognosis for any type of functional recovery after this in tubation is quite poor. It is not clear that she will survive this. Critical care time, 35 minutes.
[2017-12-23] MEDS: Lorazepam 2 MG/ML VIAL SLOW IVP PRN ×2 (02:33→22:27)
[2017-12-23] MEDS: Propofol 1,000 MG/100 ML VIAL IV PRN ×5 (02:36→22:26)
[2017-12-23 03:09] LABS: Band 9 % (5-11); Hemoglobin 10.3 g/dL (12.0-16.0); Lymphocytes 11 % (21-51); MDiff Complete? YES; Mean Corpuscular Hemoglobin 29.6 pg (27.0-31.0); Mean Corpuscular Volume 92.5 fl (81.0-99.0); Mean Platelet Volume 6.5 fL (7.4-10.4); Metamyelocyte 3 % (0-0); Monocytes 7 % (0-10); Neutrophil 69 % (42-75); PLT Morphology Comment Appears Increased; Platelet Count 432 thou/uL (130-400); RBC Distribution Width 14.3 % (11.5-14.5); RBC Morphology Normal; Reactive Lymphocytes 1 % (0-10); Red Blood Cell (RBC) Count 3.47 mill/uL (4.20-5.40); White Blood Cell (WBC) Count 31.2 thou/uL (4.8-10.8)
[2017-12-23 03:10] LABS: Anion Gap 15 mmol/L (10-20); BUN (Urea Nitrogen) 14 mg/dL (9.8-20.1); Calc. Creatinine Clearance 100 mL/min (70-130); Calcium 9.4 mg/dL (7.8-10.44); Carbon Dioxide 16 mmol/L (22-29); Chloride 111 mmol/L (98-107); Estimated GFR-MDRD 84; Glucose 118 mg/dL (70-105); Potassium 5.2 mmol/L (3.5-5.1); Sodium 137 mmol/L (136-145)
[2017-12-23] MEDS: Piperacillin/Tazobactam 4.5 GM in Sodium Chloride 0.9% 100 ML IVPB SCH ×5 (04:44→22:26)
[2017-12-23] MEDS: Sodium Chloride 0.9% 1,000 ML IV SCH ×2 (04:46→14:34)
[2017-12-23] MEDS: Vancomycin HCl 1.25 GM in Sodium Chloride 0.9% 250 ML 250 ML IVPB SCH ×2 (04:46→16:24)
--- NOTE | 2017-12-23 06:36 | PDOC.FM ---
- Subjective Subjective: Comfortable on the ventilator this morning. She wakes easily and answers questions appropriately. Denies any pain or discomfort at this time. - Objective MAR Reviewed: Yes Vital Signs & Weight: Vital Signs (12 hours) Temp Pulse Resp BP Pulse Ox 12/23/17 04:00 97.7 F 12/23/17 03:33 79 88/66 L 12/23/17 00:03 104 H 106/69 12/23/17 00:00 98.4 F 12/22/17 21:34 95 102/68 12/22/17 20:00 98.5 F 104 H 28 H 100 Most Recent Monitor Data Heart Rate from ECG 80 NIBP 92/66 NIBP BP-Mean 72 Respiration from ECG 28 SpO2 99 I&O: 12/21/17 12/22/17 12/23/17 06:59 06:59 06:59 Intake Total 168 Output Total 770 Balance -602 Result Diagrams: 12/23/17 02:36 12/23/17 02:36 <Maryan Cameron - Last Filed: 12/23/17 08:33> - Objective Vital Signs & Weight: Vital Signs (12 hours) Temp Pulse Resp BP Pulse Ox 12/23/17 10:57 82 116/75 12/23/17 08:00 98 F 92 20 99 12/23/17 07:43 92 134/81 12/23/17 07:00 98 F 12/23/17 04:00 97.7 F 12/23/17 03:33 79 88/66 L Weight Weight 88.5 kg Most Recent Monitor Data Heart Rate from ECG 89 NIBP 104/77 NIBP BP-Mean 94 Respiration from ECG 23 SpO2 100 I&O: 12/22/17 12/23/17 12/24/17 06:59 06:59 06:59 Intake Total 2203 1 Output Total 836 220 Balance 1367 -219 Result Diagrams: 12/23/17 02:36 12/23/17 02:36 <Shanita Wong - Last Filed: 12/23/17 12:09> Phys Exam - Physical Examination Constitutional: NAD HEENT: moist MMs Neck: supple rhonchi in RUL, scattered rhonchi BL Cardiovascular: RRR, no significant murmur Gastrointestinal: soft, non-tender, no distention, positive bowel sounds Musculoskeletal: no edema Neurological: non-focal, moves all 4 limbs Psychiatric: normal affect, A&O x 3 Skin: no rash <Maryan Cameron - Last Filed: 12/23/17 08:33> Dx/Plan (1) VIDYA (acute kidney injury) Code(s): N17.9 - ACUTE KIDNEY FAILURE, UNSPECIFIED Status: Acute (2) Acute respiratory failure with hypoxia Code(s): J96.01 - ACUTE RESPIRATORY FAILURE WITH HYPOXIA Status: Acute (3) Sepsis Code(s): A41.9 - SEPSIS, UNSPECIFIED ORGANISM Status: Acute QualifierTitle: Sepsis type: sepsis due to unspecified organism Qualified Code(s): A41.9 - Sepsis, unspecified organism (4) Bipolar 1 disorder Code(s): F31.9 - BIPOLAR DISORDER, UNSPECIFIED Status: Acute (5) Diabetes mellitus type 2 in obese Code(s): E11.69 - TYPE 2 DIABETES MELLITUS WITH OTHER SPECIFIED COMPLICATION; E66.9 - OBESITY, UNSPECIFIED Status: Acute (6) Leukocytosis Code(s): D72.829 - ELEVATED WHITE BLOOD CELL COUNT, UNSPECIFIED Status: Acute (7) Lung mass Code(s): R91.8 - OTHER NONSPECIFIC ABNORMAL FINDING OF LUNG FIELD Status: Acute (8) Pneumonia Code(s): J18.9 - PNEUMONIA, UNSPECIFIED ORGANISM Status: Acute QualifierTitle: Pneumonia type: due to unspecified organism Laterality: right Lung location: upper lobe of lung Qualified Code(s): J18.1 - Lobar pneumonia, unspecified organism (9) Tobacco abuse Code(s): Z72.0 - TOBACCO USE Status: Acute (10) HLD (hyperlipidemia) Code(s): E78.5 - HYPERLIPIDEMIA, UNSPECIFIED Status: Chronic QualifierTitle: Hyperlipidemia type: unspecified Qualified Code(s): E78.5 - Hyperlipidemia, unspecified (11) Hypertension Code(s): I10 - ESSENTIAL (PRIMARY) HYPERTENSION Status: Chronic QualifierTitle: Hypertension type: essential hypertension Qualified Code( s): I10 - Essential (primary) hypertension (12) Metastatic squamous cell carcinoma Code(s): C79.9 - SECONDARY MALIGNANT NEOPLASM OF UNSPECIFIED SITE; C80.1 - MALIGNANT (PRIMARY) NEOPLASM, UNSPECIFIED Status: Chronic - Plan Plan: 1. Acute Hypoxic Respiratory Failure Patient became hypoxic to 50% per EMS report. This could be 2/2 pneumonia vs atelectasis vs PE. She was intubated in the ED and is on the vent with propofol for sedation. - Dr. Ribeiro with Pulm has been consulted, appreciate assistance - Continue ventilator support - Repeat ABG this morning 2. Sepsis 2/2 PNA Patient was recently hospitalized for craniotomy for met resection. Will cover for HAP. s/p 2L NS bolus - Levaquin, Vanc, Zosyn (12/22) - Trend Lactate - NS @ 125, s/p 2L bolus - Consider addtl bolus this a.m if BP trends down 3. Stage IV squamous cell lung cancer with brain metastasis, s/p craniotomy Dr. Dean is oncologist - Consult Jermaine in AM 4. VIDYA, resolved Cr increased from baseline, s/p 2L NS bolus in ED - NS @ 125 - Monitor with BMP 5. HTN - Borderline hypotensive, holding home meds 6. HLD - Will restart home statin per tube if possible 7. DM2 Glucose elevated initially, will monitor closely - SSI, Accuchecks q4h 8. Tobacco Abuse - Rn Clinical Appeals on cessation when patient is no longer intubated 9. Bipolar Disorder - Restart home meds 10. Hypothyroidism - Restart home meds PPX: Pepcid and Lovenox <Maryan Cameron - Last Filed: 12/23/17 08:33> Attending Addendum - Attending Addendum Date/Time: 12/23/17 1130 I personally evaluated the patient and discussed the management with Dr. Cameron I agree with the History, Examination, Assessment and Plan documented above with any addition or exceptions noted below. Acute hypoxic respiratory failure- on vent. HCAP-On Vanc/Zosyn/Levaquin. Stage IV Lung Ca- onc consulted Mild hyperkalemia-recheck after IVF. - Continue ICU care. <Shanita Wong - Last Filed: 12/23/17 12:09>
[2017-12-23 08:07] LABS: Actual Bicarbonate (HCO3a) 15.5 mEq/L (22-26); Base Excess (BEa) -6.3 mEq/L (0 (+/-) 2.5); CO2 Tension 20.3 mmHg (35.0-45.0); O2 Tension (PaO2) 117.7 mmHg (80.0-100.0)
[2017-12-23 08:08] LABS: Hematocrit-ABG 29.5 % (36.0-47.0); Hemoglobin (Hb) 8.9 g/dL (12.0-16.0)
[2017-12-23 08:09] LABS: ALV-art Gradient 246.325 (0-20); Calcium, Ionized 1.3 mmol/L (1.12-1.30); Puncture Site LR
[2017-12-23] MEDS ORDERED: FLU VACC QS2017-18 36 mo. & older 0.5 ML SYRINGE IM ONE (09:00)
[2017-12-23] MEDS: Enoxaparin Sodium 40 MG/0.4 ML SYRINGE SC SCH (09:21)
[2017-12-23] MEDS: Famotidine/PF 20 mg/2ml Vial SLOW IVP SCH (09:21)
--- NOTE | 2017-12-23 09:46 | RAD ---
CHEST 1 VIEW: HISTORY: Intubated, pneumonia. COMPARISON: Chest radiograph of prior day. FINDINGS: There is right upper lobe collapse. Endotracheal tube tip is in good position at the level of clavic les. Enteric tube tip below the diaphragm below the field of view. Multiple opacities left lung base. Small effusion. IMPRESSION: 1. Right upper lobe collapse suggesting mass. Pulmonary evaluation recommended. Recommend correlati on with CT examination. 2. Extensive left basilar and either airspace opacity concerning for pneumonia. POS: [facility]
[2017-12-23 13:10] LABS: Anion Gap 13 mmol/L (10-20); BUN (Urea Nitrogen) 12 mg/dL (9.8-20.1); Calc. Creatinine Clearance 104 mL/min (70-130); Calcium 8.8 mg/dL (7.8-10.44); Carbon Dioxide 14 mmol/L (22-29); Chloride 111 mmol/L (98-107); Estimated GFR-MDRD 89; Glucose 104 mg/dL (70-105); Potassium 4.4 mmol/L (3.5-5.1); Sodium 134 mmol/L (136-145)
[2017-12-23 13:36] LABS: Lactic Acid 3.7 mmol/L (0.5-2.2)
[2017-12-23] MEDS ORDERED: Sodium Chloride 0.9% 1,000 ML IV SCH (14:00)
--- NOTE | 2017-12-23 16:04 | PRG ---
DATE OF SERVICE: 12/23/2017 SUBJECTIVE: Ms. Arevalo remains mechanically ventilated. She is sedated for ventilation. OBJECTIVE: VITAL SIGNS: Heart rate 86, blood pressure 122/80, respiratory rates in the 20s , oximetry is in the high 90s. LUNGS: Remarkable for diffuse coarse wheezes. HEART: Regular rhythm. ABDOMEN: Soft. LABORATORY DATA: White count 31.2, hemoglobin 10.3, platelets 432. LABORATORY DATA: Sodium 134, potassium 4.4, chloride 111, bicarbonate 14, BUN 12, creatinine 0.8. Blood gas pH 7.5, CO2 of 22, pO2 of 117. Respiratory rate had been turned down from a rate of 28 this morning. FIO2 will gradually be decreased. She will continue with PEEP of 7. Chest radiograph reviewed by me still shows a left lower lobe alveolar infiltrate and atelectasis of her right upper lobe. IMPRESSION: 1. Pneumonia leading to respiratory failure, community-acquired. 2. Stage IV non-small cell lung cancer with brain metastasis that has been resected, status post partial completion of her cranial radiotherapy. 3. Chronic obstructive pulmonary disease with ongoing bronchospasm. Her prognosis for any type of rapid recovery is extremely poor. It is debatable whether or not she will be a candidate for chemotherapy after this. It is very debatable whether it will be helpful. Unfortunately, if she continues to smoke, she will be more prone to have pulmonary infections. I believe her family understands how serious this is. One of her family members asked the nurse if being on the ventilator would open her lung where the tumor was. In any event, we will continue to care for and reassess her on a daily basis. She is currently not weanable from mechanical ventilation. Microbiology has been reviewed. Urine is growing gram negative trev. Blood cultures are negative so far, so she has an added diagnosis of cystitis, but I do not feel that plays a role in her acute illness. Critical care time 35 min. ALISA
--- NOTE | 2017-12-23 16:50 | CON ---
DATE OF CONSULTATION: 12/23/2017 REASON FOR CONSULTATION: Lung cancer. HISTORY OF PRESENT ILLNESS: Ms. Arevalo is a 62-year-old -[place]i female, who was admitted in 10/2017 for shortness of breath, cough, and hemoptysis. CT scan showed mediastinal lymphadenopathy a nd atelectasis of the right upper lobe. Dr. Ford performed a bronchoscopy, which showed an endobr onchial mass causing a complete obstruction of the right upper lobe bronchus. There was a 70% occlus ion of the bronchus intermedius. A biopsy was consistent with squamous cell carcinoma. Further stag ing with an MRI of the brain showed a solitary enhancing cavitary lesion of the left frontal lobe riley suring 2.8 cm in diameter. She was discharged home and followed up with Dr. Dean and Dr. Tino herrera the outpatient setting. The decision was made to perform a stereotactic radiosurgery on the brain lesion, this was done on 12/02/2017. The resected specimen measured 2.5 x 2.5 x 0.8 cm in aggregate and histologically was squamous cell carcinoma. She was scheduled for a PET scan and to follow up wi Dr. Jiménez and Dr. Dean to discuss chemoradiation. Unfortunately, she became significantly arleen rt of breath at home this week. Her O2 sat was 50% on room air. She was brought to the emergency ro om and intubated for pneumonia and respiratory failure. She remains on vent at this time and is irene mikayla and intubated. History of this admission was obtained from medical record and speaking with the staff. The patient is awake and nod appropriately and is able to move all extremities. She does not nod to pain. PAST MEDICAL HISTORY: 1. Newly diagnosed squamous cell carcinoma of the lung, stage IV. 2. Bipolar disease. 3. Hypothyroidism. 4. Hyperlipidemia. 5. Hypertension. 6. Type 2 diabetes. PAST SURGICAL HISTORY: 1. Stereotactic radiosurgery of brain mets. 2. Bronchoscopy. ALLERGIES: No known drug allergies. HOME MEDICATIONS: 1. Amlodipine 5 mg daily. 2. Dexamethasone 4 mg b.i.d. 3. Glipizide 5 mg b.i.d. 4. Levothyroxine 100 mcg daily. 5. Lisinopril 2.5 mg daily. 6. Metformin 1000 mg b.i.d. 7. Pravastatin 40 mg daily. 8. Seroquel XR 300 mg 2 tablets daily. 9. Sertraline 25 mg daily. FAMILY HISTORY: Noncontributory. SOCIAL HISTORY: Single, has 3 children, lives alone. She is a former smoker [id number] history. No alcohol or illicit drug use. REVIEW OF SYSTEMS: Unable to obtain secondary to intubation and sedation. Again, nods no to pain an d is able to move all extremities. PHYSICAL EXAMINATION: VITAL SIGNS: Temperature is 98.0, pulse is 94, respiratory rate is 20, and blood pressure is 127/74. She is 100% on 55% FiO2. GENERAL: Well-developed, well-nourished female in no acute distress. HEENT: Normocephalic, atraumatic. Pupils are equal and reactive to light. She has ET tube in place . CARDIOVASCULAR: Regular rate and rhythm. LUNGS: Scattered rhonchi throughout. Again, she is on the ventilator. ABDOMEN: Soft, nontender, bowel sounds are positive. EXTREMITIES: No clubbing, cyanosis or edema. SKIN: No rash. HEMATOLOGIC: No petechia or purpura. NEUROLOGIC: The patient is sedated. PERTINENT LABORATORY AND X-RAYS: Current WBCs are 31.2, hemoglobin 10.3, hematocrit 32.1, platelet c ount 432,000, 69% neutrophils, 9% bands, 11% lymphocytes. Sodium is 134, potassium is 4.4, chloride 111, CO2 is 14, BUN is 12, creatinine is 0.8, lactic acid is 3.7, and calcium is 8.8. Radiology per HPI. ASSESSMENT: 1. Pneumonia with respiratory failure. 2. Stage IV squamous cell carcinoma with solitary brain metastases, status post sterotactic radiosur lu. DISCUSSION: The patient has not received any chemotherapy or radiation. She was in the process of b eing evaluated after surgery and was to have a PET scan this past week. She remains intubated, but i s slowly improving. We will provide supportive care and speak with the family. Otherwise, we will f ollow her hospital course remotely. Thank you for the consult.
[2017-12-23 19:50] LABS: Lactic Acid 2.5 mmol/L (0.5-2.2)
[2017-12-24 03:48] LABS: Anion Gap 14 mmol/L (10-20); BUN (Urea Nitrogen) 8 mg/dL (9.8-20.1); Band 1 % (5-11); Calc. Creatinine Clearance 105 mL/min (70-130); Carbon Dioxide 16 mmol/L (22-29); Chloride 114 mmol/L (98-107); Eosinophils 1 % (0-10); Estimated GFR-MDRD 89; Glucose 104 mg/dL (70-105); Hemoglobin 8.7 g/dL (12.0-16.0); Lymphocytes 26 % (21-51); MDiff Complete? YES; Mean Corpuscular HGB CONC 32.6 g/dL (32.0-36.0); Mean Corpuscular Hemoglobin 29.7 pg (27.0-31.0); Mean Platelet Volume 6.3 fL (7.4-10.4); Monocytes 8 % (0-10); Myelocyte 1 % (0-0); Neutrophil 63 % (42-75); Platelet Count 399 thou/uL (130-400); Potassium 3.8 mmol/L (3.5-5.1); RBC Distribution Width 14.2 % (11.5-14.5); Red Blood Cell (RBC) Count 2.93 mill/uL (4.20-5.40); Sodium 140 mmol/L (136-145); White Blood Cell (WBC) Count 14.7 thou/uL (4.8-10.8)
[2017-12-24] MEDS: Piperacillin/Tazobactam 4.5 GM in Sodium Chloride 0.9% 100 ML IVPB SCH ×4 (04:35→21:59)
[2017-12-24] MEDS: Vancomycin HCl 1.25 GM in Sodium Chloride 0.9% 250 ML 250 ML IVPB SCH (04:35)
[2017-12-24] MEDS: Propofol 1,000 MG/100 ML VIAL IV PRN ×4 (05:14→20:24)
--- NOTE | 2017-12-24 06:35 | PDOC.FM ---
- Subjective Subjective: Ms. Arvealo is comfortable on the ventilator this morning. She is arousable and denies any pain. - Objective MAR Reviewed: Yes Vital Signs & Weight: Vital Signs (12 hours) Temp Pulse Resp BP Pulse Ox 12/24/17 04:00 98.3 F 20 12/24/17 03:16 96 115/67 12/24/17 00:00 98.3 F 20 12/23/17 22:05 94 110/68 12/23/17 19:41 98.3 F 92 20 97 12/23/17 19:00 98.3 F Weight Admit Weight 89.099 kg Weight 89.099 kg Most Recent Monitor Data Heart Rate from ECG 95 NIBP 102/63 NIBP BP-Mean 70 Respiration from ECG 20 SpO2 99 I&O: 12/22/17 12/23/17 12/24/17 06:59 06:59 06:59 Intake Total 2203 4574 Output Total 836 2215 Balance 1367 2355 Result Diagrams: 12/24/17 03:16 12/24/17 03:16 <Maryan Cameron - Last Filed: 12/24/17 09:46> - Objective Vital Signs & Weight: Vital Signs (12 hours) Temp Pulse Resp BP Pulse Ox 12/24/17 14:35 98 25 H 100 12/24/17 13:38 93 132/80 12/24/17 12:00 98.4 F 20 12/24/17 11:25 91 117/75 12/24/17 08:00 98.7 F 91 23 H 98 12/24/17 07:33 90 105/64 12/24/17 07:00 98.7 F 12/24/17 04:00 98.3 F 20 12/24/17 03:16 96 115/67 Weight Admit Weight 89.099 kg Weight 89.099 kg Most Recent Monitor Data Heart Rate from ECG 100 NIBP 132/80 NIBP BP-Mean 91 Respiration from ECG 27 SpO2 99 I&O: 12/23/17 12/24/17 12/25/17 06:59 06:59 06:59 Intake Total 2203 4574 130 Output Total 836 2215 2740 Balance 1367 3416 -2615 Result Diagrams: 12/24/17 03:16 12/24/17 03:16 <Shanita Wong - Last Filed: 12/24/17 15:02> Phys Exam - Physical Examination Constitutional: NAD HEENT: moist MMs ET tube in place Neck: supple end-inspiratory wheezing BL, scatter rhonchi Cardiovascular: RRR, no significant murmur Gastrointestinal: soft, non-tender, no distention, positive bowel sounds Musculoskeletal: no edema, pulses present Neurological: non-focal, moves all 4 limbs Deviation from normal: sedated but easily arousable to voice, answers questions Skin: normal turgor, cap refill <2 seconds <Maryan Cameron - Last Filed: 12/24/17 09:46> Dx/Plan (1) VIDYA (acute kidney injury) Code(s): N17.9 - ACUTE KIDNEY FAILURE, UNSPECIFIED Status: Acute (2) Acute respiratory failure with hypoxia Code(s): J96.01 - ACUTE RESPIRATORY FAILURE WITH HYPOXIA Status: Acute (3) Sepsis Code(s): A41.9 - SEPSIS, UNSPECIFIED ORGANISM Status: Acute QualifierTitle: Sepsis type: sepsis due to unspecified organism Qualified Code(s): A41.9 - Sepsis, unspecified organism (4) Bipolar 1 disorder Code(s): F31.9 - BIPOLAR DISORDER, UNSPECIFIED Status: Acute (5) Diabetes mellitus type 2 in obese Code(s): E11.69 - TYPE 2 DIABETES MELLITUS WITH OTHER SPECIFIED COMPLICATION; E66.9 - OBESITY, UNSPECIFIED Status: Acute (6) Leukocytosis Code(s): D72.829 - ELEVATED WHITE BLOOD CELL COUNT, UNSPECIFIED Status: Acute (7) Lung mass Code(s): R91.8 - OTHER NONSPECIFIC ABNORMAL FINDING OF LUNG FIELD Status: Acute (8) Pneumonia Code(s): J18.9 - PNEUMONIA, UNSPECIFIED ORGANISM Status: Acute QualifierTitle: Pneumonia type: due to unspecified organism Laterality: right Lung location: upper lobe of lung Qualified Code(s): J18.1 - Lobar pneumonia, unspecified organism (9) Tobacco abuse Code(s): Z72.0 - TOBACCO USE Status: Acute (10) HLD (hyperlipidemia) Code(s): E78.5 - HYPERLIPIDEMIA, UNSPECIFIED Status: Chronic QualifierTitle: Hyperlipidemia type: unspecified Qualified Code(s): E78.5 - Hyperlipidemia, unspecified (11) Hypertension Code(s): I10 - ESSENTIAL (PRIMARY) HYPERTENSION Status: Chronic QualifierTitle: Hypertension type: essential hypertension Qualified Code( s): I10 - Essential (primary) hypertension (12) Metastatic squamous cell carcinoma Code(s): C79.9 - SECONDARY MALIGNANT NEOPLASM OF UNSPECIFIED SITE; C80.1 - MALIGNANT (PRIMARY) NEOPLASM, UNSPECIFIED Status: Chronic - Plan Plan: 1. Acute Hypoxic Respiratory Failure - Related to LLL PNA and RUL atelectasis - Dr. Ribeiro with Pulm has been consulted, appreciate assistance - Continue ventilator support 2. Sepsis 2/ PNA - Patient was recently hospitalized for L frontal stereotactic craniotomy for tumor resection and chest pain, will cover for HAP - Levaquin, Vanc, Zosyn (12/22) - Trend Lactate, now downtrending - NS @ 125, s/p 3L bolus 3. 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 Dean and Samantha Jimenez following remotely 4. HTN - Borderline hypotensive, holding home meds 5. HLD - Home statin 6. DM2 - Restarting home meds per tube - Mild SSI, Accuchecks q8hr 7. Tobacco Abuse - Encourage cessation when patient is no longer intubated 8. Bipolar Disorder - Home meds per tube 10. Hypothyroidism - Home meds per tube Will start tube feeding today. Vent mgmt per Dr. Ribeiro. PPX: Pepcid and Lovenox <Maryan Cameron - Last Filed: 12/24/17 09:46> Attending Addendum - Attending Addendum Date/Time: 12/24/17 [id number] I personally evaluated the patient and discussed the management with Dr. Cameron I agree with the History, Examination, Assessment and Plan documented above with any addition or exceptions noted below. Acute hypoxic respiratory failure secondary to HCAP and Stage IV lung cancer- continue vent per pulm, broad spectrum abx, IVF. On PPI and lovenox <Shanita Wong - Last Filed: 12/24/17 15:02>
[2017-12-24 07:11] LABS: Actual Bicarbonate (HCO3a) 16.1 mEq/L (22-26); Base Excess (BEa) -7.3 mEq/L (0 (+/-) 2.5); CO2 Tension 25.1 mmHg (35.0-45.0); Hematocrit-ABG 25.9 % (36.0-47.0); O2 Tension (PaO2) 107.4 mmHg (80.0-100.0); pH, Arterial 7.42 (7.35-7.45)
[2017-12-24 07:12] LABS: ALV-art Gradient 179.825 (0-20); Calcium, Ionized 1.3 mmol/L (1.12-1.30); Hemoglobin (Hb) 8.4 g/dL (12.0-16.0); Puncture Site RR
[2017-12-24] MEDS: Famotidine/PF 20 mg/2ml Vial SLOW IVP SCH (08:47)
[2017-12-24] MEDS: Enoxaparin Sodium 40 MG/0.4 ML SYRINGE SC SCH (08:47)
[2017-12-24] MEDS: Lorazepam 2 MG/ML VIAL SLOW IVP PRN ×3 (08:47→20:27)
[2017-12-24] MEDS: Sodium Chloride 0.9% 1,000 ML IV SCH (08:57)
[2017-12-24] MEDS ORDERED: Morphine 4 MG/ML Carpuject SLOW IVP PRN (11:00)
--- NOTE | 2017-12-24 11:07 | PRG ---
DATE OF.DATE OF SERVICE: 12/24/2017 SUBJECTIVE: Mickey is clinically unchanged. She is sedated for mechanical ventilation. OBJECTIVE: VITAL SIGNS: Heart rate is 90, blood pressure 105/64, respiratory rates per mechanical ventilation, oximetry is 99%. HEENT: Pupils are equal. She is orally intubated. LUNGS: Remarkable for diffuse coarse wheezes. HEART: Regular rhythm. S1 and S2 are normal. No murmurs heard. ABDOMEN: Soft without masses or organomegaly. EXTREMITIES: Without asymmetry. LABORATORY DATA: White count 14.7, hemoglobin 9.7, yesterday hemoglobin was 10.3, platelets 399. So dium 140, potassium 3.8, chloride 114, bicarbonate 16, BUN 8, creatinine 0.8. Chest radiograph was reviewed yesterday, no radiograph was done today. She really needs daily radiog raphs in my opinion. Blood gas today shows a pH 7.42, CO2 25, PO2 of 107. IMPRESSION: 1. Stage IV nonsmall cell lung cancer, status post resection of a brain metastasis. 2. Partial radiotherapy to her tumor bed in her brain, no chemo yet. 3. Left lung pneumonia involving most of her lower lobe. 4. Chronic obstructive pulmonary disease exacerbation with respiratory failure. She is not making much progress. She is currently not weanable. Other issues include anemia and hyp erchloremia. Her anemia will be monitored with repeat lab in the morning. Her IV fluids need to be half normal saline. CRITICAL CARE TIME: 30 minutes.
[2017-12-24] MEDS: Sodium Chloride 0.45% 1,000 ML IV SCH ×3 (11:45→20:44)
--- NOTE | 2017-12-24 12:57 | RAD ---
PORTABLE AP CHEST RADIOGRAPH: Date: 12-24-17 History: Patient on ventilator. Comparison: 12-23-17 FINDINGS: Endotracheal tube and nasogastric tube remain in place and unchanged in position. Dense wedge shaped area of opacity within the right upper lobe and right lung apex are again seen and stable. Prominence of the right hilar region is again noted. Findings are likely attributable to post obstructive cortez es and collapse of the right upper lobe as noted on the prior exam. There are persistent increased in terstitial opacities in the left perihilar location in the left mid lung zone and at the left lung ba se which may be related to pneumonia. Chest is otherwise stable. IMPRESSION: Stable chest. POS: [facility]
[2017-12-24] MEDS: glipiZIDE 5 MG TAB PO SCH (17:17)
[2017-12-24] MEDS: metFORMIN 500 MG TAB PO SCH (17:17)
[2017-12-25] MEDS: Propofol 1,000 MG/100 ML VIAL IV PRN ×3 (04:14→19:38)
[2017-12-25] MEDS: Piperacillin/Tazobactam 4.5 GM in Sodium Chloride 0.9% 100 ML IVPB SCH ×4 (04:15→21:20)
[2017-12-25 04:46] LABS: Anion Gap 16 mmol/L (10-20); BUN (Urea Nitrogen) 4 mg/dL (9.8-20.1); Calc. Creatinine Clearance 115 mL/min (70-130); Calcium 9.5 mg/dL (7.8-10.44); Carbon Dioxide 15 mmol/L (22-29); Chloride 115 mmol/L (98-107); Estimated GFR-MDRD Greater than 90; Glucose 76 mg/dL (70-105); Potassium 3.4 mmol/L (3.5-5.1); Sodium 143 mmol/L (136-145)
[2017-12-25 05:13] LABS: Band 6 % (5-11); Hemoglobin 9.3 g/dL (12.0-16.0); Lymphocytes 26 % (21-51); MDiff Complete? YES; Mean Corpuscular HGB CONC 32.6 g/dL (32.0-36.0); Mean Corpuscular Hemoglobin 29.9 pg (27.0-31.0); Mean Corpuscular Volume 91.8 fl (81.0-99.0); Mean Platelet Volume 6.6 fL (7.4-10.4); Monocytes 17 % (0-10); Neutrophil 51 % (42-75); Platelet Count 405 thou/uL (130-400); RBC Distribution Width 14.4 % (11.5-14.5); Red Blood Cell (RBC) Count 3.09 mill/uL (4.20-5.40); White Blood Cell (WBC) Count 16.1 thou/uL (4.8-10.8)
[2017-12-25] MEDS: Levothyroxine Sodium 100 MCG TAB PO SCH (06:07)
--- NOTE | 2017-12-25 06:41 | PDOC.FM ---
- Subjective Subjective: Sedated and appears comfortable on the ventilator but will open eyes to voice and follow commands. Denies any pain at this time. - Objective MAR Reviewed: Yes Vital Signs & Weight: Vital Signs (12 hours) Temp Pulse Resp Pulse Ox 12/25/17 06:00 23 H 12/25/17 04:00 98.3 F 20 12/25/17 02:51 104 H 20 100 12/25/17 01:59 23 H 12/25/17 00:00 98.1 F 20 12/24/17 22:00 20 12/24/17 21:32 96 20 99 12/24/17 20:00 98.6 F 20 12/24/17 19:30 98.6 F 105 H 27 H 100 Weight Admit Weight 89.099 kg Weight 90.3 kg Most Recent Monitor Data Heart Rate from ECG 109 NIBP 111/67 NIBP BP-Mean 86 Respiration from ECG 20 SpO2 100 I&O: 12/23/17 12/24/17 12/25/17 06:59 06:59 06:59 Intake Total 2203 4574 3280 Output Total 836 2215 4820 Balance 1367 8206 -8503 Result Diagrams: 12/25/17 03:42 12/25/17 03:42 <Maryan Cameron - Last Filed: 12/25/17 11:38> - Objective Vital Signs & Weight: Vital Signs (12 hours) Temp Pulse Resp BP Pulse Ox 12/25/17 13:34 95 31 H 97 12/25/17 13:27 94 144/76 H 12/25/17 08:25 104 H 97/62 12/25/17 08:23 104 H 23 H 97 12/25/17 08:00 98.8 F 12/25/17 06:00 23 H 12/25/17 04:00 98.3 F 20 Weight Admit Weight 89.099 kg Weight 90.3 kg Most Recent Monitor Data Heart Rate from ECG 103 NIBP 138/79 NIBP BP-Mean 99 Respiration from ECG 35 SpO2 97 I&O: 12/24/17 12/25/17 12/26/17 06:59 06:59 06:59 Intake Total 4574 3280 Output Total 2215 4820 143 Balance 2359 -1540 -143 Result Diagrams: 12/25/17 03:42 12/25/17 03:42 <MarvinShanita Asya - Last Filed: 12/25/17 15:23> Phys Exam - Physical Examination Constitutional: NAD HEENT: moist MMs, sclera anicteric Neck: supple ET tube in place Respiratory: no wheezing diffuse rhonchi BL Cardiovascular: RRR, no significant murmur Gastrointestinal: soft, non-tender, no distention, positive bowel sounds Musculoskeletal: no edema, pulses present Neurological: non-focal, moves all 4 limbs Skin: normal turgor, cap refill <2 seconds <Maryan Cameron - Last Filed: 12/25/17 11:38> Dx/Plan (1) VIDYA (acute kidney injury) Code(s): N17.9 - ACUTE KIDNEY FAILURE, UNSPECIFIED Status: Acute (2) Acute respiratory failure with hypoxia Code(s): J96.01 - ACUTE RESPIRATORY FAILURE WITH HYPOXIA Status: Acute (3) Sepsis Code(s): A41.9 - SEPSIS, UNSPECIFIED ORGANISM Status: Acute QualifierTitle: Sepsis type: sepsis due to unspecified organism Qualified Code(s): A41.9 - Sepsis, unspecified organism (4) Bipolar 1 disorder Code(s): F31.9 - BIPOLAR DISORDER, UNSPECIFIED Status: Acute (5) Diabetes mellitus type 2 in obese Code(s): E11.69 - TYPE 2 DIABETES MELLITUS WITH OTHER SPECIFIED COMPLICATION; E66.9 - OBESITY, UNSPECIFIED Status: Acute (6) Leukocytosis Code(s): D72.829 - ELEVATED WHITE BLOOD CELL COUNT, UNSPECIFIED Status: Acute (7) Lung mass Code(s): R91.8 - OTHER NONSPECIFIC ABNORMAL FINDING OF LUNG FIELD Status: Acute (8) Pneumonia Code(s): J18.9 - PNEUMONIA, UNSPECIFIED ORGANISM Status: Acute QualifierTitle: Pneumonia type: due to unspecified organism Laterality: right Lung location: upper lobe of lung Qualified Code(s): J18.1 - Lobar pneumonia, unspecified organism (9) Tobacco abuse Code(s): Z72.0 - TOBACCO USE Status: Acute (10) HLD (hyperlipidemia) Code(s): E78.5 - HYPERLIPIDEMIA, UNSPECIFIED Status: Chronic QualifierTitle: Hyperlipidemia type: unspecified Qualified Code(s): E78.5 - Hyperlipidemia, unspecified (11) Hypertension Code(s): I10 - ESSENTIAL (PRIMARY) HYPERTENSION Status: Chronic QualifierTitle: Hypertension type: essential hypertension Qualified Code( s): I10 - Essential (primary) hypertension (12) Metastatic squamous cell carcinoma Code(s): C79.9 - SECONDARY MALIGNANT NEOPLASM OF UNSPECIFIED SITE; C80.1 - MALIGNANT (PRIMARY) NEOPLASM, UNSPECIFIED Status: Chronic - Plan Plan: 1. Acute Hypoxic Respiratory Failure - Related to LLL PNA and RUL atelectasis - Dr. Ribeiro with Pulm has been consulted, appreciate assistance - Continue ventilator support - Not weanable at this time 2/2 bronchospasm per pulmonology 2. Sepsis 2/2 PNA - Patient was recently hospitalized for L frontal stereotactic craniotomy for tumor resection and chest pain, will cover for HAP - Kyrie Hodges Zosyn (12/22) - Trend Lactate, now downtrending - NS now at @ 75, s/p 3L bolus 3. 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 Dean and Samantha Jimenez following remotely 4. HTN - Borderline hypotensive, holding home meds 5. HLD - Home statin 6. DM2 - Restarting home meds per tube - Mild SSI, Accuchecks q8hr 7. Tobacco Abuse - Encourage cessation when patient is no longer intubated 8. Bipolar Disorder - Home meds per tube 10. Hypothyroidism - Home meds per tube Continue tube feeds. Vent mgmt per Dr. Ribeiro. PPX: Pepcid and Lovenox <Maryan Cameron - Last Filed: 12/25/17 11:38> Attending Addendum - Attending Addendum Date/Time: 12/25/17 1040 I personally evaluated the patient and discussed the management with Dr. Cameron I agree with the History, Examination, Assessment and Plan documented above with any addition or exceptions noted below. Acute hypoxic respiratory failure HCAP Stage IV lung cancer -continue ICU care. Vent mgmt per pulm. Tube feeds initiated. Broad spectrum abx continue. <Shanita Wong - Last Filed: 12/25/17 15:23>
[2017-12-25 07:10] LABS: pH, Arterial 7.43 (7.35-7.45)
[2017-12-25 07:11] LABS: CO2 Tension 24.7 mmHg (35.0-45.0)
[2017-12-25 07:12] LABS: Base Excess (BEa) -7.3 mEq/L (0 (+/-) 2.5); Hemoglobin (Hb) 8.5 g/dL (12.0-16.0); O2 Tension (PaO2) 133.9 mmHg (80.0-100.0)
[2017-12-25 07:13] LABS: ALV-art Gradient 120.425 (0-20); Calcium, Ionized 1.2 mmol/L (1.12-1.30); Puncture Site RRA
[2017-12-25] MEDS: glipiZIDE 5 MG TAB PO SCH ×2 (07:30→18:01)
--- NOTE | 2017-12-25 08:37 | RAD ---
PORTABLE CHEST 1 VIEW: Date: 12/25/17 Time: 0502 hours HISTORY: Respiratory failure. FINDINGS/IMPRESSION: No significant interval change seen since the previous day's exam. POS: OFF
[2017-12-25] MEDS: Enoxaparin Sodium 40 MG/0.4 ML SYRINGE SC SCH ×2 (10:01→13:17)
[2017-12-25] MEDS: metFORMIN 500 MG TAB PO SCH ×2 (10:01→18:01)
[2017-12-25] MEDS: Famotidine/PF 20 mg/2ml Vial SLOW IVP SCH (10:01)
--- NOTE | 2017-12-25 11:02 | PRG ---
DATE OF SERVICE: 12/25/2017 Ms. Arevalo remains mechanically ventilated. She is sedated for ventilation. PHYSICAL EXAMINATION: VITAL SIGNS: Heart rate 104, blood pressure 105/62, respiratory rate is in the 20s, oximetry is 96%. HEENT: Pupils react. Sclerae is anicteric. NECK: Without rigidity. LUNGS: Remarkable for coarse wheezes diffusely. CARDIOVASCULAR: Regular rhythm. S1 and S2 are normal. ABDOMEN: Soft and nontender. EXTREMITIES: Without asymmetry. LABORATORY DATA: White count 16.1, hemoglobin 9.3, platelets 405,000. Sodium 143, potassium 3.4, chloride 115, bicarbonate 15, BUN 4, creatinine 0.73. Blood gas 7.43, CO2 24, PO2 133. IMPRESSION: 1. Respiratory failure secondary to community-acquired pneumonia. 2. Status post resection of a non-small cell lung cancer, brain metastasis. 3. Stage 4 non-small cell lung cancer with right upper lobe atelectasis. 4. Left lower lobe pneumonia. 5. Chronic obstructive pulmonary disease/asthmatic bronchitis. With her degree of bronchospasm she is currently not weanable. PLAN: We will continue to make slow decreases in ventilatory support, but I really do not see any way she can wean at this point. Her prognosis for a functional recovery and survival to a point where she could get chemotherapy is quite poor at this time. Critical care time 35 min. MTDD
--- NOTE | 2017-12-25 12:17 | PRG ---
DATE OF SERVICE: 12/25/2017 Intake and output is negative 1540. Chest radiograph reviewed by me shows only slight improvement in the infiltrate at the left base. Critical care time was 30 minutes.
[2017-12-25 13:12] LABS: Lactic Acid 2.6 mmol/L (0.5-2.2)
[2017-12-25] MEDS: Lorazepam 2 MG/ML VIAL SLOW IVP PRN (13:23)
[2017-12-25] MEDS: Sodium Chloride 0.45% 1,000 ML IV SCH (14:26)
[2017-12-26] MEDS: Propofol 1,000 MG/100 ML VIAL IV PRN (01:49)
[2017-12-26] MEDS: Piperacillin/Tazobactam 4.5 GM in Sodium Chloride 0.9% 100 ML IVPB SCH ×4 (04:55→22:02)
[2017-12-26] MEDS: Sodium Chloride 0.45% 1,000 ML IV SCH (05:15)
[2017-12-26] MEDS: Levothyroxine Sodium 100 MCG TAB PO SCH (05:16)
[2017-12-26 05:44] LABS: Anion Gap 10 mmol/L (10-20); BUN (Urea Nitrogen) 7 mg/dL (9.8-20.1); Calc. Creatinine Clearance 118 mL/min (70-130); Calcium 9.4 mg/dL (7.8-10.44); Carbon Dioxide 20 mmol/L (22-29); Chloride 113 mmol/L (98-107); Estimated GFR-MDRD Greater than 90; Glucose 88 mg/dL (70-105); Potassium 3.3 mmol/L (3.5-5.1); Sodium 140 mmol/L (136-145)
[2017-12-26 06:00] LABS: Band 6 % (5-11); Eosinophils 2 % (0-10); Hemoglobin 8.3 g/dL (12.0-16.0); Lymphocytes 20 % (21-51); MDiff Complete? YES; Mean Corpuscular HGB CONC 31.3 g/dL (32.0-36.0); Mean Corpuscular Volume 92.9 fl (81.0-99.0); Mean Platelet Volume 6.9 fL (7.4-10.4); Monocytes 4 % (0-10); Myelocyte 1 % (0-0); Neutrophil 67 % (42-75); Platelet Count 417 thou/uL (130-400); RBC Distribution Width 14.5 % (11.5-14.5); Red Blood Cell (RBC) Count 2.84 mill/uL (4.20-5.40); White Blood Cell (WBC) Count 14.2 thou/uL (4.8-10.8)
--- NOTE | 2017-12-26 06:18 | PDOC.FM ---
- Subjective Subjective: Hospital Day 5 Nursing reports patient became a little more anxious at the start of the shift and required more sedation. After her seroquel had been given, she was more relaxed and required less sedation. Patients nurse, Kavitha, made me aware that Mrs. Arevalo did become a little hypoglycemic last night. When I examined the patient, she woke up a little, nodded when I introduced myself, and shook her head when I asked her if anything was wrong. - Objective MAR Reviewed: Yes Vital Signs & Weight: Vital Signs (12 hours) Temp Pulse Resp Pulse Ox 12/26/17 04:00 100.1 F H 12/26/17 02:54 90 20 95 12/26/17 02:00 27 H 12/26/17 00:00 100.1 F H 28 H 12/25/17 22:29 97 31 H 96 12/25/17 22:00 32 H 12/25/17 20:00 99.4 F 103 H 37 H 100 12/25/17 18:40 97 12/25/17 18:39 97 26 H 96 Weight Admit Weight 89.099 kg Weight 73.5 kg Most Recent Monitor Data Heart Rate from ECG 94 NIBP 107/58 NIBP BP-Mean 77 Respiration from ECG 23 SpO2 94 I&O: 12/24/17 12/25/17 12/26/17 06:59 06:59 06:59 Intake Total 4574 3280 3252 Output Total 6814 0914 1111 Balance 9999 -5282 814 Result Diagrams: 12/26/17 04:50 12/26/17 04:50 Radiology Reviewed by me: Yes (CXR appears slightly improved from yesterday) <Paulo Gan - Last Filed: 12/26/17 07:03> - Objective Vital Signs & Weight: Vital Signs (12 hours) Temp Pulse Resp BP Pulse Ox 12/26/17 09:10 96 30 H 93 L 12/26/17 06:29 89 107/58 L 12/26/17 06:28 90 22 H 95 12/26/17 06:00 24 H 12/26/17 04:00 100.1 F H 24 H 12/26/17 02:54 90 20 95 12/26/17 02:00 27 H 12/26/17 00:00 100.1 F H 28 H Weight Admit Weight 89.099 kg Weight 73.5 kg Most Recent Monitor Data Heart Rate from ECG 94 NIBP 107/58 NIBP BP-Mean 77 Respiration from ECG 23 SpO2 94 I&O: 12/25/17 12/26/17 12/27/17 06:59 06:59 06:59 Intake Total 3280 3332 Output Total 4820 2438 Balance -1540 894 Result Diagrams: 12/26/17 04:50 12/26/17 04:50 <Christiano Garner - Last Filed: 12/26/17 10:36> Phys Exam - Physical Examination Constitutional: NAD Sedated HEENT: moist MMs, sclera anicteric Intubated Neck: no nodes, no JVD, supple, full ROM Respiratory: no wheezing, no rhonchi Diffuse rales Cardiovascular: RRR, no significant murmur, no rub Gastrointestinal: soft, no distention, positive bowel sounds Musculoskeletal: no edema, pulses present Neurological: moves all 4 limbs Skin: cap refill <2 seconds <Paulo Gan - Last Filed: 12/26/17 07:03> Dx/Plan (1) Acute respiratory failure with hypoxia Code(s): J96.01 - ACUTE RESPIRATORY FAILURE WITH HYPOXIA Status: Acute (2) Pneumonia Code(s): J18.9 - PNEUMONIA, UNSPECIFIED ORGANISM Status: Acute QualifierTitle: Pneumonia type: due to unspecified organism Laterality: right Lung location: upper lobe of lung Qualified Code(s): J18.1 - Lobar pneumonia, unspecified organism (3) Sepsis Code(s): A41.9 - SEPSIS, UNSPECIFIED ORGANISM Status: Resolved QualifierTitle: Sepsis type: sepsis due to unspecified organism Qualified Code(s): A41.9 - Sepsis, unspecified organism (4) Metastatic squamous cell carcinoma Code(s): C79.9 - SECONDARY MALIGNANT NEOPLASM OF UNSPECIFIED SITE; C80.1 - MALIGNANT (PRIMARY) NEOPLASM, UNSPECIFIED Status: Chronic (5) Diabetes mellitus type 2 in obese Code(s): E11.69 - TYPE 2 DIABETES MELLITUS WITH OTHER SPECIFIED COMPLICATION; E66.9 - OBESITY, UNSPECIFIED Status: Chronic (6) Hypertension Code(s): I10 - ESSENTIAL (PRIMARY) HYPERTENSION Status: Chronic QualifierTitle: Hypertension type: essential hypertension Qualified Code( s): I10 - Essential (primary) hypertension (7) HLD (hyperlipidemia) Code(s): E78.5 - HYPERLIPIDEMIA, UNSPECIFIED Status: Chronic QualifierTitle: Hyperlipidemia type: unspecified Qualified Code(s): E78.5 - Hyperlipidemia, unspecified (8) Tobacco abuse Code(s): Z72.0 - TOBACCO USE Status: Chronic (9) Bipolar 1 disorder Code(s): F31.9 - BIPOLAR DISORDER, UNSPECIFIED Status: Chronic (10) Hypothyroidism Code(s): E03.9 - HYPOTHYROIDISM, UNSPECIFIED Status: Chronic QualifierTitle: Hypothyroidism type: unspecified Qualified Code(s): E03.9 - Hypothyroidism, unspecified - Plan Plan: 1. Acute Hypoxic Respiratory Failure - Secondary to left lower lobe pneumonia with contributing right upper lobe atelectasis - Pulmonology is following. Appreciate their assistance. - Current vent settings (12/26/17) SIMV Rate 16 Tidal Volume 500 Pressure Support 10 O2 30% PEEP 7.0 - Per Dr. Ribeiro's note yesterday, note weanable. Will continue ventilatory support, iv antibiotics, and supportive care - Fluids - NS @75 ml/hr, Tube feeds + Propofol @ total of 45 ml/hr - Intake 1674 mL Output 2298 mL Net -624 mL 2. Pneumonia - Day 5 of antibiotics - Originally covered for HAP due to recent hospitalization with vancomycin, levaquin, Zosyn - Vancomycin stopped 12/24 - Continue Levaquin, Zosyn, and ventilatory support - Patient was recently hospitalized for L frontal stereotactic craniotomy for tumor resection and chest pain, will cover for HAP - Levaquin, Vanc, Zosyn (12/22) 3. Sepsis - 2/ #2 - No longer meets sepsis criteria - Continue fluids, antibiotics, ventilator support 4. 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 Dean and Samantha Jimenez remotely following 5. DM2 - Glipizide reduced to 2.5 mg due to hypoglycemia - Accuchecks, SSI 6. HTN - Home meds held 7. HLD - Home statin held. Unlikely to benefit from statin during hospitalization 8. Tobacco Abuse - Will discuss cessation if or when patient extubated 9. Bipolar Disorder - Home meds per tube 10. Hypothyroidism - Home meds per tube PPX: Pepcid and Lovenox <Malik,Paulo - Last Filed: 12/26/17 07:03> Attending Addendum - Attending Addendum Date/Time: 12/26/17 1033 I personally evaluated the patient and discussed the management with Dr. Gan. I agree with the History, Examination, Assessment and Plan documented above with any addition or exceptions noted below. Patient has been successfully extubated by CC right before our morning rounds. She is satting well after that, but reports that she is "tired". Will continue to work with Pulm to improve respiratory status, but she has made excellent gains this morning with successful extubation. She has been hypoglycemic with tube feeds, Glipizide decreased. Will monitor sugars now that she is able to tolerate PO. Will ensure she is safe to swallow. Had mild increase in temp, will need to monitor that and reculture if she continues to spike fevers, but continue current abx coverage for now. <Christiano Garner - Last Filed: 12/26/17 10:36>
[2017-12-26 07:33] LABS: Actual Bicarbonate (HCO3a) 17.7 mEq/L (22-26); Base Excess (BEa) -6.2 mEq/L (0 (+/-) 2.5); CO2 Tension 29.2 mmHg (35.0-45.0)
[2017-12-26 07:34] LABS: Hematocrit-ABG 25.2 % (36.0-47.0); Hemoglobin (Hb) 8.3 g/dL (12.0-16.0)
[2017-12-26 07:35] LABS: Calcium, Ionized 1.3 mmol/L (1.12-1.30); Puncture Site RRA
[2017-12-26] MEDS: metFORMIN 500 MG TAB PO SCH (08:00)
[2017-12-26] MEDS ORDERED: Sodium Chloride 0.45% 1,000 ML IV SCH (08:36)
[2017-12-26] MEDS: glipiZIDE 5 MG TAB PO SCH ×2 (08:48→17:21)
[2017-12-26] MEDS: Famotidine/PF 20 mg/2ml Vial SLOW IVP SCH (08:49)
[2017-12-26] MEDS: Enoxaparin Sodium 40 MG/0.4 ML SYRINGE SC SCH (08:49)
[2017-12-26] MEDS ORDERED: Furosemide 40 MG/4 ML VIAL SLOW IVP SCH (09:00)
--- NOTE | 2017-12-26 09:04 | PRG ---
DATE OF SERVICE: 12/26/2017 SERVICE: Pulmonary Medicine. INTERVAL HISTORY: The patient is doing really well from a respiratory standpoint. She is breathing comfortably on mechanical ventilation. She denies any current fevers, chills, nausea or vomiting. S he is awake and comfortable. She is not in any distress. PHYSICAL EXAMINATION: VITAL SIGNS: Afebrile, pulse 89, blood pressure 107/58, respirations 22, saturation 95% on 30% FiO2 and PEEP of 5. GENERAL: The patient is awake and alert. No apparent distress. LUNGS: Decent air entry. There is no prolonged expiratory phase. No wheezing is present. Rhonchi are extensive, but clear with cough. Crackles are also present throughout bilateral lung sosa. HEART: Normal rate, regular. ABDOMEN: Soft, nontender, nondistended. Bowel sounds are positive. MUSCULOSKELETAL: No cyanosis or clubbing. There is pitting edema which is roughly 1-2+ throughout. GENITOURINARY: Viramontes catheter in place. NEUROLOGIC: Grossly nonfocal. LABORATORY DATA: WBC 14.2, hemoglobin 8.3, and platelets 417,000. A pH 7.40, pCO2 29, pO2 83. This corresponds to saturation 97%. Potassium 3.3. Basic metabolic profile is otherwise unremarkable. Lactate 1.8. Vancomycin trough 20.0 couple days ago. Urine cultures growing Klebsiella pneumoniae, which is pansensitive. Blood cultures x2 were unremarkable. IMAGING: Chest x-ray demonstrates right upper lobe pneumonia with dense consolidation. Endotracheal tube is in good position. Central line is in good position. Otherwise, there is no acute cardiopul monary abnormality identified. ASSESSMENT: 1. Acute hypoxic respiratory failure. 2. Healthcare-associated pneumonia. 3. Severe sepsis, resolving. 4. Non-small cell lung cancer, stage 4. 5. Chronic obstructive pulmonary disease with acute exacerbation. PLAN: We will continue supportive care including nebulized medications, steroids, and antibiotics. The patient seems to be recovering. She is slightly volume up during this hospital stay and I will p rovide her with a dose of Lasix. We will replace her potassium. If she looks well, spontaneous bree thing trial will be repeated and extubation will be considered. Pulmonary or Critical Care will cont inue to follow closely while the patient remains in this location. CRITICAL CARE TIME: 30 minutes.
--- NOTE | 2017-12-26 10:48 | RAD ---
RADIOGRAPH CHEST 1 VIEW: Date: 12/26/17. Time: 5:22 a.m. HISTORY: A 62-year-old female in respiratory failure. COMPARISON: 12/25/17, 5:02 a.m. FINDINGS: Endotracheal tube distal tip remains in the upper thoracic trachea, 6.5 cm superior to the alfred. N G tube remains. Collapse of the entire right upper lobe remains. The patient is no longer rotated t o the left, and therefore, the previously demonstrated mild haziness of the right lung is no longer v isualized. That was probably artifactual. There are diffusely prominent interstitial markings throu ghout the contralateral left lung, with left upper lobe pulmonary vascular engorgement. Cardiac size at upper limits of normal. No effacement of lateral costophrenic angles. No pneumothorax. IMPRESSION: 1. Other than improvement in patient position, there is probably no interval change. 2. Total atelectasis of right upper lobe, suspicious for obstructing mass at right upper lobe bronch us. 3. Diffusely increased interstitial markings of the left lung, especially at the left base. 4. Endotracheal tube remains in the upper thoracic trachea. ARIANA [] POS: CARRILLO
--- NOTE | 2017-12-26 15:34 | EKG ---
Test Reason : SOB Blood Pressure : / mmHG Vent. Rate : 138 BPM Atrial Rate : 138 BPM P-R Int : 126 ms QRS Dur : 068 ms QT Int : 286 ms P-R-T Axes : 060 040 057 degrees QTc Int : 433 ms Sinus tachycardia with Fusion complexes Possible Left atrial enlargement Low voltage QRS Cannot rule out Anterior infarct , age undetermined Abnormal ECG Confirmed by GLORY ANAYA ([id number]), editorial project manager GURU JOHNSON ([id number]) on 12/26/2017 3:33:47 PM Referred By: Confirmed By:GLORY ANAYA
[2017-12-26] MEDS ORDERED: Ondansetron HCl/PF 4 MG/2 ML Vial IVP PRN (15:35)
[2017-12-26] MEDS: Acetaminophen 650 MG in Premix Bag 1 BAG IVPB PRN (16:03)
[2017-12-27] MEDS: Piperacillin/Tazobactam 4.5 GM in Sodium Chloride 0.9% 100 ML IVPB SCH ×4 (04:16→21:55)
[2017-12-27 05:16] LABS: Anion Gap 15 mmol/L (10-20); BUN (Urea Nitrogen) 5 mg/dL (9.8-20.1); Calc. Creatinine Clearance 93 mL/min (70-130); Calcium 10.1 mg/dL (7.8-10.44); Carbon Dioxide 20 mmol/L (22-29); Chloride 110 mmol/L (98-107); Estimated GFR-MDRD Greater than 90; Glucose 105 mg/dL (70-105); Magnesium 1.3 mg/dL (1.6-2.6); Potassium 3.7 mmol/L (3.5-5.1); Sodium 141 mmol/L (136-145)
[2017-12-27] MEDS: Levothyroxine Sodium 100 MCG TAB PO SCH (05:46)
[2017-12-27 05:49] LABS: Band 17 % (5-11); Hemoglobin 9.3 g/dL (12.0-16.0); Lymphocytes 19 % (21-51); MDiff Complete? YES; Mean Corpuscular HGB CONC 33.2 g/dL (32.0-36.0); Mean Corpuscular Hemoglobin 30.2 pg (27.0-31.0); Mean Platelet Volume 6.4 fL (7.4-10.4); Monocytes 8 % (0-10); Neutrophil 56 % (42-75); Platelet Count 443 thou/uL (130-400); RBC Distribution Width 14.3 % (11.5-14.5); White Blood Cell (WBC) Count 16.2 thou/uL (4.8-10.8)
[2017-12-27] MEDS ORDERED: Furosemide 20 MG/2 ML VIAL SLOW IVP SCH (06:00)
--- NOTE | 2017-12-27 06:54 | PDOC.FM ---
- Subjective Subjective: Hospital Day 6 Patient sleeping but easily arousable. States she feels ok. Feels like her breathing is unchanged overall. Mild sore throat. Denies URIOSTEGUI, dizziness, CP, AP, N/V/D. Patient's nurse, Bijal, reports she seemed a little confused overnight but otherwise did well. Had adequate O2 saturation on NC overnight. - Objective MAR Reviewed: Yes Vital Signs & Weight: Vital Signs (12 hours) Temp Pulse Resp Pulse Ox 12/27/17 04:00 98.3 F 12/27/17 02:26 92 18 98 12/27/17 00:00 98.5 F 12/26/17 22:21 110 H 25 H 92 L 12/26/17 20:00 98.2 F 98 28 H 91 L Weight Admit Weight 89.099 kg Weight 73.437 kg Most Recent Monitor Data Heart Rate from ECG 97 NIBP 104/73 NIBP BP-Mean 82 Respiration from ECG 25 SpO2 90 I&O: 12/25/17 12/26/17 12/27/17 06:59 06:59 06:59 Intake Total 3280 3332 1676.7 Output Total 4820 2438 5040 Balance -1540 894 -3363.3 Result Diagrams: 12/27/17 04:28 12/27/17 04:28 <Paulo Gan - Last Filed: 12/27/17 06:55> - Objective Vital Signs & Weight: Vital Signs (12 hours) Temp Pulse Resp Pulse Ox 12/27/17 08:00 98.5 F 12/27/17 07:24 94 L 12/27/17 07:22 92 14 94 L 12/27/17 04:00 98.3 F 12/27/17 02:26 92 18 98 12/27/17 00:00 98.5 F Weight Admit Weight 89.099 kg Weight 73.437 kg Most Recent Monitor Data Heart Rate from ECG 116 NIBP 114/75 NIBP BP-Mean 85 Respiration from ECG 24 SpO2 93 I&O: 12/26/17 12/27/17 12/28/17 06:59 06:59 06:59 Intake Total 3332 1676.7 Output Total 2438 5040 1330 Balance 894 -3363.3 -1330 Result Diagrams: 12/27/17 04:28 12/27/17 04:28 <Christiano Garner - Last Filed: 12/27/17 10:44> Phys Exam - Physical Examination Constitutional: NAD Sleeping, arousable HEENT: PERRLA, moist MMs, oral pharynx no lesions Neck: no nodes, no JVD, supple, full ROM Right basilar rales No change in work of breathing from yesterday Cardiovascular: RRR, no significant murmur, no rub Gastrointestinal: soft, non-tender, no distention, positive bowel sounds Musculoskeletal: no edema, pulses present Neurological: non-focal, moves all 4 limbs Lymphatic: no nodes Psychiatric: normal affect, A&O x 3 Skin: no rash, normal turgor, cap refill <2 seconds <Paulo Gan - Last Filed: 12/27/17 06:55> Dx/Plan (1) Acute respiratory failure with hypoxia Code(s): J96.01 - ACUTE RESPIRATORY FAILURE WITH HYPOXIA Status: Acute (2) Pneumonia Code(s): J18.9 - PNEUMONIA, UNSPECIFIED ORGANISM Status: Acute QualifierTitle: Pneumonia type: due to unspecified organism Laterality: right Lung location: upper lobe of lung Qualified Code(s): J18.1 - Lobar pneumonia, unspecified organism (3) Sepsis Code(s): A41.9 - SEPSIS, UNSPECIFIED ORGANISM Status: Resolved QualifierTitle: Sepsis type: sepsis due to unspecified organism Qualified Code(s): A41.9 - Sepsis, unspecified organism (4) Metastatic squamous cell carcinoma Code(s): C79.9 - SECONDARY MALIGNANT NEOPLASM OF UNSPECIFIED SITE; C80.1 - MALIGNANT (PRIMARY) NEOPLASM, UNSPECIFIED Status: Chronic (5) Diabetes mellitus type 2 in obese Code(s): E11.69 - TYPE 2 DIABETES MELLITUS WITH OTHER SPECIFIED COMPLICATION; E66.9 - OBESITY, UNSPECIFIED Status: Chronic (6) Hypertension Code(s): I10 - ESSENTIAL (PRIMARY) HYPERTENSION Status: Chronic QualifierTitle: Hypertension type: essential hypertension Qualified Code( s): I10 - Essential (primary) hypertension (7) HLD (hyperlipidemia) Code(s): E78.5 - HYPERLIPIDEMIA, UNSPECIFIED Status: Chronic QualifierTitle: Hyperlipidemia type: unspecified Qualified Code(s): E78.5 - Hyperlipidemia, unspecified (8) Tobacco abuse Code(s): Z72.0 - TOBACCO USE Status: Chronic (9) Bipolar 1 disorder Code(s): F31.9 - BIPOLAR DISORDER, UNSPECIFIED Status: Chronic (10) Hypothyroidism Code(s): E03.9 - HYPOTHYROIDISM, UNSPECIFIED Status: Chronic QualifierTitle: Hypothyroidism type: unspecified Qualified Code(s): E03.9 - Hypothyroidism, unspecified (11) Hypomagnesemia Code(s): E83.42 - HYPOMAGNESEMIA Status: Acute - Plan Plan: Hospital Day #6 1. Acute Hypoxic Respiratory Failure - 2/2 left lower lobe pneumonia with contributing right upper lobe atelectasis - Dr. Ford, pulm., is following. Appreciate his assistance. - Extubated . Maintaining adequate O2 saturation on nasal cannula at 5L - Fluids - NS @KVO - Intake 1576 Output 5040 Net -3463 - Net I&O since arrival: -383 - Plan to move out of ICU today 2. Pneumonia - Day 6 of antibiotics - Originally covered for HAP due to recent hospitalization with vancomycin, levaquin, Zosyn - Vancomycin stopped 12/24 - Continue Levaquin, Zosyn, and O2 supplementation 3. Sepsis - 2/2 #2 - No longer meets sepsis criteria - Continue antibiotics 4. 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 Dean and Samantah Jimenez remotely following 5. DM2 - Glipizide reduced to 2.5 mg due to hypoglycemia on 12/26. No further episodes of hypoglycemia - Accuchecks, SSI 6. HTN - Home meds held. Patient normotensive 7. HLD - Home statin held. Unlikely to benefit from statin during hospitalization 8. Tobacco Abuse - Will discuss cessation if or when patient extubated 9. Bipolar Disorder - Home meds per tube 10. Hypothyroidism - Home meds per tube 11. Hypomagnesemia - Being repleted per protocol PPX: Pepcid and Lovenox <Paulo Gan - Last Filed: 12/27/17 06:55> Attending Addendum - Attending Addendum Date/Time: 12/27/17 1043 I personally evaluated the patient and discussed the management with Dr. Gan. I agree with the History, Examination, Assessment and Plan documented above with any addition or exceptions noted below. Patient doing well this morning. She is satting well on NC. Denies any complaints. Reports she feels well. Will await speech therapy consult before advancing diet. Likely transfer from CCU today. <Christiano Garner - Last Filed: 12/27/17 10:44>
[2017-12-27] MEDS ORDERED: D5 1/2 NS w/10 mEq KCl 1,000 ML/1,000 ML BAG IV SCH (07:00)
[2017-12-27] MEDS: glipiZIDE 5 MG TAB PO SCH ×2 (08:39→16:22)
[2017-12-27] MEDS: Enoxaparin Sodium 40 MG/0.4 ML SYRINGE SC SCH ×2 (08:40→08:58)
[2017-12-27] MEDS: Famotidine/PF 20 mg/2ml Vial SLOW IVP SCH (08:40)
[2017-12-27] MEDS: Acetaminophen 650 MG in Premix Bag 1 BAG IVPB PRN (10:29)
[2017-12-27] MEDS ORDERED: Potassium Chloride 20 MEQ TAB PO SCH (11:30)
[2017-12-27] MEDS: Insulin Regular 300 UNITS/3 ML VIAL SC PRN (11:31)
[2017-12-27] MEDS ORDERED: Magnesium Sulfate 4 GM in Sodium Chloride 0.9% 250 ML 250 ML IVPB SCH (12:00)
--- NOTE | 2017-12-27 12:04 | PRG ---
DATE OF SERVICE: 12/27/2017 SERVICE: Pulmonary Medicine. INTERVAL HISTORY: The patient is actually doing really quite well from a respiratory standpoint. Anabella bains is breathing comfortably on 1 liter nasal cannula. She is able to cough. She has extensive rhonch i throughout bilateral lung sosa, but with a very vigorous cough, she can clear the secretions. Anabella bains denies any current fevers or chills. There has been no interval change to her condition. No overn ight events were reported. PHYSICAL EXAMINATION: VITAL SIGNS: Afebrile currently. T-max yesterday morning was 100.6, pulse 103, blood pressure 114/7 5, respirations 24, saturation 93% on 2 liters nasal cannula. GENERAL: The patient is awake and alert, in no apparent distress. LUNGS: Decent air entry. There is no prolonged expiratory phase or wheezing present. Extensive rho nchi are present. As previously noted, they can clear with good coughing. No prolonged expiratory p hase. HEART: Tachycardic, regular. ABDOMEN: Soft, nontender, and nondistended. Bowel sounds are positive. MUSCULOSKELETAL: No cyanosis or clubbing. No pitting in the bilateral lower extremities. NEUROLOGIC: Grossly nonfocal. LABORATORY DATA: WBC 16.2, hemoglobin 9.3, platelets 443,000. Band count is up trending to 17, lymp hocyte count 19, neutrophils are actually stable. Potassium 3.7, bicarbonate 20, anion gap 15. Basi c metabolic profile is otherwise unremarkable. Magnesium 1.3. Urine culture is growing Klebsiella p neumonia species. Blood culture x2 is unremarkable. ASSESSMENT: 1. Acute hypoxic respiratory failure. 2. Healthcare-associated pneumonia, likely postobstructive. 3. Severe sepsis, resolving. 4. Non-small cell lung cancer, stage 4. 5. Chronic obstructive pulmonary disease with acute exacerbation. DISCUSSION AND PLAN: We will continue nebulized medication, steroids, and antibiotics. We will intr oduce some physiotherapy. Potassium and magnesium both will be replaced. From my perspective, she i s stable for transition to the floor, though we need to focus our efforts on mobilizing her.
[2017-12-27] MEDS: Acetaminophen 325 MG TAB PO PRN (17:53)
[2017-12-28] MEDS: Piperacillin/Tazobactam 4.5 GM in Sodium Chloride 0.9% 100 ML IVPB SCH ×4 (03:46→21:56)
[2017-12-28] MEDS: Acetaminophen 325 MG TAB PO PRN ×3 (04:52→18:53)
[2017-12-28] MEDS: Levothyroxine Sodium 100 MCG TAB PO SCH (05:00)
[2017-12-28 06:05] LABS: Band 9 % (5-11); Lymphocytes 16 % (21-51); MDiff Complete? YES; Mean Corpuscular HGB CONC 31.7 g/dL (32.0-36.0); Mean Corpuscular Hemoglobin 28.6 pg (27.0-31.0); Mean Platelet Volume 6.6 fL (7.4-10.4); Metamyelocyte 1 % (0-0); Monocytes 9 % (0-10); Neutrophil 65 % (42-75); Platelet Count 500 thou/uL (130-400); RBC Distribution Width 14.1 % (11.5-14.5); Red Blood Cell (RBC) Count 3.14 mill/uL (4.20-5.40); White Blood Cell (WBC) Count 14.8 thou/uL (4.8-10.8)
[2017-12-28 06:07] LABS: Anion Gap 13 mmol/L (10-20); BUN (Urea Nitrogen) 7 mg/dL (9.8-20.1); Calc. Creatinine Clearance 96 mL/min (70-130); Carbon Dioxide 23 mmol/L (22-29); Chloride 105 mmol/L (98-107); Estimated GFR-MDRD Greater than 90; Glucose 118 mg/dL (70-105); Magnesium 1.9 mg/dL (1.6-2.6); Potassium 3.8 mmol/L (3.5-5.1); Sodium 137 mmol/L (136-145)
--- NOTE | 2017-12-28 06:41 | PDOC.FM ---
- Subjective Subjective: Pt seen at bedside with no family present in room. Pt in mild resp distress c/o some increased SOB and work of breathing. Pt tolerating PO, denies CP, abd pain , NVD. - Objective MAR Reviewed: Yes Vital Signs & Weight: Vital Signs (12 hours) Temp Pulse Resp BP Pulse Ox 12/28/17 02:36 100 12/28/17 02:33 92 18 100 12/27/17 23:59 98.4 F 102 H 24 H 90/53 L 92 L 12/27/17 22:45 115 H 24 H 92 L 12/27/17 20:00 98.3 F 101 H 24 H 132/64 94 L 12/27/17 19:03 78 20 Weight Admit Weight 89.099 kg Weight 73.437 kg Most Recent Monitor Data Heart Rate from ECG 103 NIBP 120/74 NIBP BP-Mean 97 Respiration from ECG 24 SpO2 100 I&O: 12/26/17 12/27/17 12/28/17 06:59 06:59 06:59 Intake Total 3332 1676.7 900 Output Total 2438 5040 2960 Balance 894 -3363. Result Diagrams: 12/28/17 05:25 12/28/17 05:25 <Josh Vick M - Last Filed: 12/28/17 10:57> - Objective Vital Signs & Weight: Vital Signs (12 hours) Temp Pulse Resp BP Pulse Ox 12/28/17 07:20 98.7 F 101 H 20 111/57 L 93 L 12/28/17 07:02 98 22 H 96 12/28/17 02:36 100 12/28/17 02:33 92 18 100 12/27/17 23:59 98.4 F 102 H 24 H 90/53 L 92 L Weight Admit Weight 89.099 kg Weight 73.437 kg Most Recent Monitor Data Heart Rate from ECG 103 NIBP 120/74 NIBP BP-Mean 97 Respiration from ECG 24 SpO2 100 I&O: 12/27/17 12/28/17 12/29/17 06:59 06:59 06:59 Intake Total 1676.7 900 Output Total 5040 2960 Balance -3363. Result Diagrams: 12/28/17 05:25 12/28/17 05:25 <Christiano Garner - Last Filed: 12/28/17 11:17> Phys Exam - Physical Examination mild resp distress HEENT: moist MMs Respiratory: no wheezing diffuse rales and some bilateral exp wheezing Cardiovascular: RRR Gastrointestinal: soft, non-tender Musculoskeletal: pulses present Neurological: moves all 4 limbs Psychiatric: normal affect, A&O x 3 Skin: cap refill <2 seconds <NicanorJosh Kong - Last Filed: 12/28/17 10:57> Dx/Plan (1) Acute respiratory failure with hypoxia Code(s): J96.01 - ACUTE RESPIRATORY FAILURE WITH HYPOXIA Status: Acute (2) Sepsis Code(s): A41.9 - SEPSIS, UNSPECIFIED ORGANISM Status: Resolved QualifierTitle: Sepsis type: sepsis due to unspecified organism Qualified Code(s): A41.9 - Sepsis, unspecified organism (3) Pneumonia Code(s): J18.9 - PNEUMONIA, UNSPECIFIED ORGANISM Status: Acute QualifierTitle: Pneumonia type: due to unspecified organism Laterality: right Lung location: upper lobe of lung Qualified Code(s): J18.1 - Lobar pneumonia, unspecified organism (4) Metastatic squamous cell carcinoma Code(s): C79.9 - SECONDARY MALIGNANT NEOPLASM OF UNSPECIFIED SITE; C80.1 - MALIGNANT (PRIMARY) NEOPLASM, UNSPECIFIED Status: Chronic (5) Diabetes mellitus type 2 in obese Code(s): E11.69 - TYPE 2 DIABETES MELLITUS WITH OTHER SPECIFIED COMPLICATION; E66.9 - OBESITY, UNSPECIFIED Status: Chronic (6) HLD (hyperlipidemia) Code(s): E78.5 - HYPERLIPIDEMIA, UNSPECIFIED Status: Chronic QualifierTitle: Hyperlipidemia type: unspecified Qualified Code(s): E78.5 - Hyperlipidemia, unspecified (7) Hypertension Code(s): I10 - ESSENTIAL (PRIMARY) HYPERTENSION Status: Chronic QualifierTitle: Hypertension type: essential hypertension Qualified Code( s): I10 - Essential (primary) hypertension (8) Tobacco abuse Code(s): Z72.0 - TOBACCO USE Status: Chronic (9) Hypothyroidism Code(s): E03.9 - HYPOTHYROIDISM, UNSPECIFIED Status: Chronic QualifierTitle: Hypothyroidism type: unspecified Qualified Code(s): E03.9 - Hypothyroidism, unspecified - Plan Plan: Hospital Day #7 1. Acute Hypoxic Respiratory Failure, resolving - 2/2 left lower lobe pneumonia with contributing right upper lobe atelectasis - pulmonology is following, recs greatly appreciated - Extubated 12/24/17. Maintaining adequate O2 saturation on nasal cannula at 5-6L - Fluids - 1/2NS @KVO - net I/O -2059 - pt with some increased oxygen requirements today and SOB. will obtain ABG and CXR. 2. Pneumonia, likely postobstructive - Day 7 of antibiotics - Originally covered for HAP due to recent hospitalization with vancomycin, levaquin, Zosyn - Vancomycin stopped 12/24 - Continue Levaquin, Zosyn, and O2 supplementation 3. Sepsis, resolved - 2 #2 - No longer meets sepsis criteria - Continue antibiotics 4. 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 Dean and Samantha Jimenez remotely following 5. DM2 - Glipizide reduced to 2.5 mg due to hypoglycemia on 12/26. No further episodes of hypoglycemia - Accuchecks, SSI 6. HTN - Home meds held. Patient normotensive 7. HLD - Home statin held. Unlikely to benefit from statin during hospitalization 8. Tobacco Abuse - Will discuss cessation if or when patient extubated 9. Bipolar Disorder - Home meds per tube 10. Hypothyroidism - Home meds per tube 11. Hypomagnesemia - Being repleted per protocol PPX: Pepcid and Lovenox Disposition: Pt with some worsening respiratory distress this AM. ABG and CXR ordered. Will treat with one time dose of 20 mg lasix. Continue to work towards PT/OT/ST. Will attempt to coordinate care with oncology team. Continue to monitor closely. <Josh Vick - Last Filed: 12/28/17 10:57> Attending Addendum - Attending Addendum Date/Time: 12/28/17 1115 I personally evaluated the patient and discussed the management with Dr. Vick. I agree with the History, Examination, Assessment and Plan documented above with any addition or exceptions noted below. Patient reports feeling improved today, but she does have increased work of breathing compared to yesterday. She is currently on 5L by ND. Her lungs have diffuse course breath sounds. No evidence of LE edema, but her CXR appears consistent with some pulm vascular congestion. Will give IV lasix x1 and evaluate response. Pulm to see patient and offer further recommendations. Continue to treat infection with Levaquin and Zosyn for time being with transition hopefully soon to oral abx. Will discuss her case with Oncology and see if they will come see her now that her status is somewhat more stable. WBC stable, afebrile. Will need to get PT back on board to work with patient and begin placement discussion if improvement continues. <Christiano Garner R - Last Filed: 12/28/17 11:17>
[2017-12-28] MEDS: glipiZIDE 5 MG TAB PO SCH ×2 (06:50→17:02)
[2017-12-28] MEDS: Enoxaparin Sodium 40 MG/0.4 ML SYRINGE SC SCH (10:58)
[2017-12-28] MEDS ORDERED: Furosemide 20 MG/2 ML VIAL SLOW IVP SCH (11:00)
[2017-12-28 11:05] LABS: Actual Bicarbonate (HCO3a) 25.4 mEq/L (22-26); Base Excess (BEa) 1.3 mEq/L (0 (+/-) 2.5); CO2 Tension 38.3 mmHg (35.0-45.0); Hematocrit-ABG 29.9 % (36.0-47.0); O2 Tension (PaO2) 53.4 mmHg (80.0-100.0); pH, Arterial 7.44 (7.35-7.45)
[2017-12-28 11:06] LABS: ALV-art Gradient 183.925 (0-20); Analyzer IN Cardio OR; Calcium, Ionized 1.3 mmol/L (1.12-1.30); Hemoglobin (Hb) 8.9 g/dL (12.0-16.0); Puncture Site L.B.
[2017-12-28 12:38] VITALS: BMI 25.3
--- NOTE | 2017-12-28 13:13 | RAD ---
PORTABLE CHEST 1 VIEW: Date: 12/28/17 Time: 1050 hours HISTORY: Hypoxemia, increasing shortness of breath. FINDINGS/IMPRESSION: Comparison made with exam of 12/26/17. The heart size is normal. There is near complete resolution of the right upper lobe consolidation/ate lectatic change since the previous study. Endotracheal and nasogastric tubes have been removed in the interim. There is atelectatic change in the right lung base. There is pulmonary vascular congestion. No pneumothoraces or large effusions are seen. POS: OFF
[2017-12-28] MEDS ORDERED: methylPREDNISolone Sod Succ/PF 125 MG/2 ML VIAL IVP SCH (13:15)
--- NOTE | 2017-12-28 13:22 | PRG ---
DATE OF SERVICE: 12/28/2017 Ms. Arevalo was extubated over the weekend. She is on the oncology unit now. PHYSICAL EXAMINATION: VITAL SIGNS: She is afebrile, heart rate 104, respiratory rates in the 20s, oximetry is 94. She says she is so weak, she can get out of bed by herself. She is still on nasal cannula. LUNGS: Lungs are still remarkable for diffuse wheezes. I reviewed her medications. It does not appear she is on steroids at this time, so these have been r estarted. HEART: Regular rhythm. ABDOMEN: Abdomen is soft. IMPRESSION: 1. Pneumonia with respiratory failure. 2. Asthmatic bronchitis. 3. Underlying chronic obstructive pulmonary disease. 4. Stage IV non-small cell lung cancer. PLAN: Steroids, nebulizer treatments, physical therapy. At some point in time she will need to be r eevaluated for treatment of her malignancy, but she is not functional enough to be treated at this po int in time. Blood glucoses will go up with the steroids, but her shortness of breath becomes a prio rity rather than tight glucose control.
--- NOTE | 2017-12-28 20:09 | CON ---
DATE OF CONSULTATION: 12/28/2017 REASON FOR CONSULTATION: Ms. Arevalo is a 62-year-old female with a known history of a clinical stage IV, T3 N2 M1 moderately differentiated squamous cell carcinoma of the right upper lobe of the lung wi solitary brain metastasis. I was asked to see her to discuss her options with radiation. HISTORY OF PRESENT ILLNESS: I initially saw Ms. Arevalo in late October. At that time, she had a [facility] t x-ray and CT scan, which showed partial collapse of the right upper lobe from a right hilar mass. There was also mediastinal adenopathy. Bronchoscopy had shown the right upper lobe to be completely occluded by an endobronchial mass with 70% occlusion of the right bronchus intermedius. Biopsies and brushings returned the diagnosis of an invasive mildly differentiated squamous cell carcinoma. MRI of the brain showed a 2.8-cm cavitary enhancing lesion in the inferior aspect of the left frontal lob e consistent with metastasis. She was started on steroids and then about 3 weeks ago, underwent surg ical resection of the brain metastasis by Dr. Hall. A gross total resection was felt to have been accomplished. Pathology from this confirmed metastatic squamous cell carcinoma. In mid November or so, she had a repeat CT scan on a visit to the emergency room, which showed stable disease in the [facility]. I was actually scheduled to see her on three different occasions last week, but she did not make her appointments. However, on Thursday, she was brought to the emergency room with increasing shor tness of breath and subsequently required intubation and was diagnosed with pneumonia. She has been on antibiotics and was able to be extubated. I have been asked to see her and discuss her options wi th radiation. Presently, she is still quite weak. She still has significant shortness of breath and is requiring 5 liters of O2. She is not able to get out of bed. She does have some occasional head aches. She denies any focal neurological symptoms. She voices no other complaints. PAST MEDICAL HISTORY: 1. Diabetes. 2. Hypertension. 3. Hypercholesterolemia. 4. Hypothyroidism. 5. Bipolar disorder. 6. History of anxiety and depression. 7. History of blood clots in the past. 8. Status post x2. 9. Lung cancer as mentioned above. MEDICATIONS: Nebulizers, Lovenox, Glucotrol, glucagon, insulin, Levaquin, Synthroid, Solu-Medrol, pi peracillin, Seroquel, and Zoloft. ALLERGIES: LATEX. She denies any medicine allergies. SOCIAL HISTORY: She previously smoked 1 pack per day for 44 years. She has quit smoking at the pres ent time. She has no alcohol use. She lives by herself here in town and is disabled, although her h usband is with her in the room. FAMILY HISTORY: Her mother from breast cancer in her late 30s. Her father apparently was recen tly diagnosed with lung cancer. There is no other family history of malignancy. REVIEW OF SYSTEMS: Twelve-system review of systems was otherwise negative. PHYSICAL EXAMINATION: VITAL SIGNS: Height 5 feet 7 inches, weight 161 pounds, blood pressure is 110/79, pulse is 104, resp irations are 20, temperature is 98.1, O2 saturation is 94%. GENERAL: She is alert and oriented. Breathing is mildly labored. Karnofsky performance status is 6 0%. She does become breathless with talking. She does have hoarseness. EYES: Pupils equal, round, and reactive to light. Extraocular movements are intact. ENT: Oral cavity and oropharynx normal without lesion or erythema. Palate elevates symmetrically. Gingiva is intact. NECK: Supple without cervical or supraclavicular adenopathy. No thyromegaly. Larynx midline. LUNGS: Scattered rales bilaterally. Otherwise, clear to percussion. Breathing is mildly labored. CARDIOVASCULAR: Heart regular rate and rhythm without murmur. No lower extremity edema. HEART: Regular rate and rhythm without murmur. EXTREMITIES: No lower extremity edema. BACK: No tenderness on fist percussion of her spine. LYMPHATIC: No axillary or inguinal adenopathy. ABDOMEN: Soft, nontender, nondistended without mass or hepatosplenomegaly. Liver percusses to susana l size. SKIN: Her craniotomy incision in the left frontal lobe area is healing well. NEUROLOGIC: Cranial nerves II-XII grossly intact. Motor strength 5/5 in both upper and lower extrem ities in all muscle groups tested. Gait was unable to be tested. RADIOLOGIC: Multiple chest x-rays from her admission until now were personally reviewed. She does h ave atelectasis in the right upper lobe, which appears to be stable and chronic. She has a diffuse i nfiltrate in the left lower lobe and also some infiltrate that appears in the right lower lobe. She still has aeration of the right lower lobe. LABORATORY DATA: Pathology has shown squamous cell carcinoma both from the lung and from the brain. CBC reveals a white blood cell count today of 14,800 with hemoglobin of 9, hematocrit of 28.2, and p latelet count was 500,000. White blood cell count on admission was 31,000. Chemistry group reveals normal-appearing electrolytes. ASSESSMENT: Ms. Arevalo is a 62-year-old female with a clinical stage IV, T3 N2 M1 squamous cell carci noma of the right upper lobe of the lung with a solitary brain metastasis that has been surgically re sected. PLAN: The patient has seen both Dr. Dean and myself as an outpatient. The original plan was to get her through her surgery and then treat the resection cavity in the brain with postoperative radio surgery. We were then going to treat her primary disease in the chest with chemotherapy and radiatio n. We were trying to expedite this, but the patient never was able to have her PET scan as an outpat ient because of poor blood sugar control. Also, she did not make her appointments with and elizabeth antony as subsequently admitted to the hospital with pneumonia. At the present time, she is too weak to ini tiate therapy. Hopefully, her pneumonia will improve and allow her to again become ambulatory and th en we can proceed with radiation therapy and possibly chemotherapy. The obstruction in her chest fro m her disease appears to be stable at the present time. Nevertheless, it is concerning that at some point in the near future she could completely obstruct the right lung. Again, hopefully, she will im prove from a pneumonia standpoint before that happen, so that we can initiate radiation therapy to th e chest. We will continue to monitor her condition and will potentially proceed with treatment as ap propriate when she is clinically improved. I have discussed the case with Dr. Ribeiro and he also agre es that there is no reason to urgently initiate any radiation therapy to the chest because of concern s for obstruction. Thank you for this interesting consultation.
[2017-12-28] MEDS: Nicotine 14 MG PATCH TD SCH (21:56)
[2017-12-29] MEDS: Piperacillin/Tazobactam 4.5 GM in Sodium Chloride 0.9% 100 ML IVPB SCH ×4 (03:39→22:00)
[2017-12-29] MEDS: Acetaminophen 325 MG TAB PO PRN ×2 (05:05→10:21)
[2017-12-29] MEDS: Levothyroxine Sodium 100 MCG TAB PO SCH (05:08)
--- NOTE | 2017-12-29 06:31 | PDOC.FM ---
- Subjective Subjective: Pt seen at bedside in NAD. COLINDRES overnight. Notes her breathing is a little better than yesterday but still has SOB. Pt denies CP, abd pain, NVD. - Objective MAR Reviewed: Yes Vital Signs & Weight: Vital Signs (12 hours) Temp Pulse Resp BP Pulse Ox 12/29/17 03:39 98.6 F 97 24 H 122/68 97 12/29/17 02:36 97 20 97 12/28/17 23:28 101 H 24 H 90 L 12/28/17 20:00 98.2 F 113 H 20 98 12/28/17 18:56 113 H 20 97 Weight Admit Weight 89.099 kg Weight 73.437 kg Most Recent Monitor Data Heart Rate from ECG 103 NIBP 120/74 NIBP BP-Mean 97 Respiration from ECG 24 SpO2 100 I&O: 12/27/17 12/28/17 12/29/17 06:59 06:59 06:59 Intake Total 1676.7 900 980 Output Total 5040 2960 4170 [id number] Result Diagrams: 12/28/17 05:25 12/28/17 05:25 <Josh Vick M - Last Filed: 12/29/17 10:31> - Objective Vital Signs & Weight: Vital Signs (12 hours) Temp Pulse Resp BP Pulse Ox 12/29/17 11:00 85 20 93 L 12/29/17 08:00 98.5 F 99 18 90 L 12/29/17 07:30 98.5 F 99 18 131/74 90 L 12/29/17 06:30 76 20 12/29/17 03:39 98.6 F 97 24 H 122/68 97 12/29/17 02:36 97 20 97 12/28/17 23:28 101 H 24 H 90 L Weight Admit Weight 89.099 kg Weight 73.437 kg Most Recent Monitor Data Heart Rate from ECG 103 NIBP 120/74 NIBP BP-Mean 97 Respiration from ECG 24 SpO2 100 I&O: 12/28/17 12/29/17 12/30/17 06:59 06:59 06:59 Intake Total 900 980 Output Total 2960 4175 Balance -2059 Result Diagrams: 12/28/17 05:25 12/28/17 05:25 <Christiano Garner R - Last Filed: 12/29/17 11:17> Phys Exam - Physical Examination Constitutional: NAD HEENT: moist MMs Respiratory: no wheezing, wheezing present diffuse rales and wheezing Cardiovascular: RRR Gastrointestinal: soft, non-tender Musculoskeletal: pulses present Neurological: moves all 4 limbs Psychiatric: normal affect, A&O x 3 Skin: cap refill <2 seconds <NicanorJosh oKng - Last Filed: 12/29/17 10:31> Dx/Plan (1) Acute respiratory failure with hypoxia Code(s): J96.01 - ACUTE RESPIRATORY FAILURE WITH HYPOXIA Status: Acute (2) Sepsis Code(s): A41.9 - SEPSIS, UNSPECIFIED ORGANISM Status: Resolved QualifierTitle: Sepsis type: sepsis due to unspecified organism Qualified Code(s): A41.9 - Sepsis, unspecified organism (3) Pneumonia Code(s): J18.9 - PNEUMONIA, UNSPECIFIED ORGANISM Status: Acute QualifierTitle: Pneumonia type: due to unspecified organism Laterality: right Lung location: upper lobe of lung Qualified Code(s): J18.1 - Lobar pneumonia, unspecified organism (4) Metastatic squamous cell carcinoma Code(s): C79.9 - SECONDARY MALIGNANT NEOPLASM OF UNSPECIFIED SITE; C80.1 - MALIGNANT (PRIMARY) NEOPLASM, UNSPECIFIED Status: Chronic (5) Diabetes mellitus type 2 in obese Code(s): E11.69 - TYPE 2 DIABETES MELLITUS WITH OTHER SPECIFIED COMPLICATION; E66.9 - OBESITY, UNSPECIFIED Status: Chronic (6) HLD (hyperlipidemia) Code(s): E78.5 - HYPERLIPIDEMIA, UNSPECIFIED Status: Chronic QualifierTitle: Hyperlipidemia type: unspecified Qualified Code(s): E78.5 - Hyperlipidemia, unspecified (7) Hypertension Code(s): I10 - ESSENTIAL (PRIMARY) HYPERTENSION Status: Chronic QualifierTitle: Hypertension type: essential hypertension Qualified Code( s): I10 - Essential (primary) hypertension (8) Tobacco abuse Code(s): Z72.0 - TOBACCO USE Status: Chronic (9) Hypothyroidism Code(s): E03.9 - HYPOTHYROIDISM, UNSPECIFIED Status: Chronic QualifierTitle: Hypothyroidism type: unspecified Qualified Code(s): E03.9 - Hypothyroidism, unspecified - Plan Plan: Hospital Day #8 1. Acute Hypoxic Respiratory Failure, resolving - 2/2 left lower lobe pneumonia with contributing right upper lobe atelectasis - pulmonology is following, recs greatly appreciated - Extubated 12/24/17. Maintaining adequate O2 saturation on nasal cannula at 5-6L - Fluids - 1/2NS @CoinkiteO - net I/O -3195 - ABG yesterday showed some continued hypoxia but pt responded well to dose of lasix and nasal cannula - additional lasix of 20 mg today - d/c gallardo as pt more ambulatory and able to get up to bedside commode 2. Pneumonia, likely postobstructive - Day 7 of antibiotics - Originally covered for HAP due to recent hospitalization with vancomycin, levaquin, Zosyn - Vancomycin stopped 12/24 - Continue Levaquin, Zosyn, and O2 supplementation 3. Sepsis, resolved - 2 #2 - No longer meets sepsis criteria - Continue antibiotics 4. 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 Dean and Samantha Jimenez remotely following 5. DM2 - Glipizide reduced to 2.5 mg due to hypoglycemia on 12/26. No further episodes of hypoglycemia - Accuchecks, SSI 6. HTN - Home meds held. Patient normotensive 7. HLD - Home statin held. Unlikely to benefit from statin during hospitalization 8. Tobacco Abuse - Will discuss cessation if or when patient extubated 9. Bipolar Disorder - Home meds per tube 10. Hypothyroidism - Home meds per tube 11. Hypomagnesemia - Being repleted per protocol PPX: Pepcid and Lovenox Disposition: Pt stable. Specialist recs greatly appreciated. Dr. Jiménez has reevaluated pt and deems her not a candidate for urgent radiotherapy. Continue to focus on physical and speech therapy. Palliative care assistance greatly appreciated. Continue to monitor closely. <Josh Vick - Last Filed: 12/29/17 10:31> Attending Addendum - Attending Addendum Date/Time: 12/29/17 8855 I personally evaluated the patient and discussed the management with Dr. Vick. I agree with the History, Examination, Assessment and Plan documented above with any addition or exceptions noted below. Patient with significant improvement since yesterday. Breathing more comfortably and her O2 requirement has decreased. Still has significant course lung sounds bilaterally, and rales in bases. Will give 1 further dose of Lasix as patient responded well yesterday and CXR has some evidence of volume overload. Otherwise, continue abx and steroids. Continue PT and begin working on placement in the near future. <Christiano Garner - Last Filed: 12/29/17 11:17>
[2017-12-29] MEDS: Enoxaparin Sodium 40 MG/0.4 ML SYRINGE SC SCH (08:16)
[2017-12-29] MEDS: glipiZIDE 5 MG TAB PO SCH ×2 (08:17→17:21)
[2017-12-29] MEDS ORDERED: Furosemide 20 MG/2 ML VIAL SLOW IVP SCH (10:30)
[2017-12-29] MEDS: Nicotine 14 MG PATCH TD SCH (20:07)
[2017-12-30] MEDS: Piperacillin/Tazobactam 4.5 GM in Sodium Chloride 0.9% 100 ML IVPB SCH ×2 (03:32→11:38)
[2017-12-30] MEDS: Levothyroxine Sodium 100 MCG TAB PO SCH (05:45)
--- NOTE | 2017-12-30 06:19 | PDOC.FM ---
- Subjective Subjective: Pt seen at bedside in NAD. BERNADINE overnight. - Objective MAR Reviewed: Yes Vital Signs & Weight: Vital Signs (12 hours) Temp Pulse Resp BP BP Pulse Ox 12/30/17 02:41 87 18 94 L 12/29/17 23:32 97.9 F 101 H 20 115/67 96 12/29/17 22:06 107 H 20 12/29/17 20:00 99.1 F 111 H 20 95 12/29/17 19:47 99.1 F 111 H 20 113/70 95 Weight Admit Weight 89.099 kg Weight 73.437 kg Most Recent Monitor Data Heart Rate from ECG 103 NIBP 120/74 NIBP BP-Mean 97 Respiration from ECG 24 SpO2 100 I&O: 12/28/17 12/29/17 12/30/17 06:59 06:59 06:59 Intake Total 745 786 4513 Output Total 2960 4175 1400 Balance -2059 -3194 1200 Result Diagrams: 12/28/17 05:25 12/28/17 05:25 <Josh Vick M - Last Filed: 12/30/17 08:51> - Objective Vital Signs & Weight: Vital Signs (12 hours) Temp Pulse Resp BP Pulse Ox 12/30/17 11:46 97.8 F 101 H 24 H 129/73 97 12/30/17 10:17 103 H 18 92 L 12/30/17 08:00 98.5 F 96 20 120/60 91 L 12/30/17 06:29 97 16 97 12/30/17 06:20 97 16 90 L 12/30/17 02:41 87 18 94 L Weight Admit Weight 89.099 kg Weight 73.437 kg Most Recent Monitor Data Heart Rate from ECG 103 NIBP 120/74 NIBP BP-Mean 97 Respiration from ECG 24 SpO2 100 I&O: 12/29/17 12/30/17 12/31/17 06:59 06:59 06:59 Intake Total 980 2600 Output Total 4175 1400 Balance - 1200 Result Diagrams: 12/28/17 05:25 12/28/17 05:25 <Christiano Garner R - Last Filed: 12/30/17 12:26> Phys Exam - Physical Examination Constitutional: NAD HEENT: moist MMs Respiratory: wheezing present improved rales, mild wheezing Cardiovascular: RRR Gastrointestinal: soft, non-tender Musculoskeletal: pulses present Neurological: moves all 4 limbs Psychiatric: normal affect, A&O x 3 <NicanorJosh Kong - Last Filed: 12/30/17 08:51> Dx/Plan (1) Acute respiratory failure with hypoxia Code(s): J96.01 - ACUTE RESPIRATORY FAILURE WITH HYPOXIA Status: Acute (2) Sepsis Code(s): A41.9 - SEPSIS, UNSPECIFIED ORGANISM Status: Resolved QualifierTitle: Sepsis type: sepsis due to unspecified organism Qualified Code(s): A41.9 - Sepsis, unspecified organism (3) Pneumonia Code(s): J18.9 - PNEUMONIA, UNSPECIFIED ORGANISM Status: Acute QualifierTitle: Pneumonia type: due to unspecified organism Laterality: right Lung location: upper lobe of lung Qualified Code(s): J18.1 - Lobar pneumonia, unspecified organism (4) Metastatic squamous cell carcinoma Code(s): C79.9 - SECONDARY MALIGNANT NEOPLASM OF UNSPECIFIED SITE; C80.1 - MALIGNANT (PRIMARY) NEOPLASM, UNSPECIFIED Status: Chronic (5) Diabetes mellitus type 2 in obese Code(s): E11.69 - TYPE 2 DIABETES MELLITUS WITH OTHER SPECIFIED COMPLICATION; E66.9 - OBESITY, UNSPECIFIED Status: Chronic (6) HLD (hyperlipidemia) Code(s): E78.5 - HYPERLIPIDEMIA, UNSPECIFIED Status: Chronic QualifierTitle: Hyperlipidemia type: unspecified Qualified Code(s): E78.5 - Hyperlipidemia, unspecified (7) Hypertension Code(s): I10 - ESSENTIAL (PRIMARY) HYPERTENSION Status: Chronic QualifierTitle: Hypertension type: essential hypertension Qualified Code( s): I10 - Essential (primary) hypertension (8) Tobacco abuse Code(s): Z72.0 - TOBACCO USE Status: Chronic (9) Hypothyroidism Code(s): E03.9 - HYPOTHYROIDISM, UNSPECIFIED Status: Chronic QualifierTitle: Hypothyroidism type: unspecified Qualified Code(s): E03.9 - Hypothyroidism, unspecified - Plan Plan: Hospital Day #9 1. Acute Hypoxic Respiratory Failure, resolving - 2/2 left lower lobe pneumonia with contributing right upper lobe atelectasis - pulmonology is following, recs greatly appreciated - Extubated 12/24/17. Maintaining adequate O2 saturation on nasal cannula at 5-6L - Fluids - 1/2NS @KVO - net I/O -3195 - ABG yesterday showed some continued hypoxia but pt responded well to dose of lasix and nasal cannula - pt able to ambulate with PT and use bedside commode with assist 2. Pneumonia, likely postobstructive - Day 7 of antibiotics - Originally covered for HAP due to recent hospitalization with vancomycin, levaquin, Zosyn - Vancomycin stopped 12/24 - Continue Levaquin, Zosyn, and O2 supplementation - will coordinate with pulmonology regarding abx course 3. Sepsis, resolved - / #2 - No longer meets sepsis criteria - Continue antibiotics 4. 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 Dean and Samantha Jimenez remotely following - Dr. Jiménez notes pt may begin treatment when over acute PNA 5. DM2 - Glipizide reduced to 2.5 mg due to hypoglycemia on 12/26. No further episodes of hypoglycemia - Accuchecks, SSI 6. HTN - Home meds held. Patient normotensive 7. HLD - Home statin held. Unlikely to benefit from statin during hospitalization 8. Tobacco Abuse 9. Bipolar Disorder - Home meds 10. Hypothyroidism - Home meds PPX: Pepcid and Lovenox Disposition: Pt doing well and working more with PT. Pt will likely benefit from inpatient rehab. CM and rehab assistance greatly appreciated. Continue to monitor and consider d/c in next 1-2 days. <Josh Vick - Last Filed: 12/30/17 08:51> Attending Addendum - Attending Addendum Date/Time: 12/30/17 9277 I personally evaluated the patient and discussed the management with Dr. Vick. I agree with the History, Examination, Assessment and Plan documented above with any addition or exceptions noted below. Patient continues to do well. She will be transitioned to oral antibiotics today. Continue neb treatments and steroids. Her respiratory status continues to improve. Awaiting possible placement at Rehab if approved. <Christiano Garner - Last Filed: 12/30/17 12:26>
[2017-12-30] MEDS: Enoxaparin Sodium 40 MG/0.4 ML SYRINGE SC SCH (09:15)
[2017-12-30] MEDS: glipiZIDE 5 MG TAB PO SCH ×2 (09:15→18:30)
[2017-12-30] MEDS ORDERED: Albuterol Sulfate 2.5 mg/3 ml Neb NEB PRN (11:08)
[2017-12-30] MEDS: Insulin Regular 300 UNITS/3 ML VIAL SC PRN (11:37)
[2017-12-30] MEDS ORDERED: Fluticasone Propionate Nasal Spray 16 gm Bottle NASAL PRN (14:12)
[2017-12-30] MEDS: Amoxicillin/Potassium Clav 875 MG TAB PO SCH (20:30)
--- NOTE | 2017-12-30 21:00 | PRG ---
DATE OF SERVICE: 12/29/2017 SERVICE: Pulmonary Medicine. INTERVAL HISTORY: The patient is doing well from a respiratory standpoint. She is breathing comfort ably. She has no specific complaints of fevers or chills. Earlier today, she ended up having a resp iratory event with some shortness of breath. She was given some nebulized medications and a dose of Lasix. A couple of hours later, she settled down and started breathing more comfortably. She curren tly denies any chest pain, fevers, chills, nausea or vomiting. She has a continuous sensation of cru d inside of her chest. Frequently, she feels like she needs to cough up some sputum, but has a hard time clearing it. It specifically gets stuck on the right side of the chest and she feels that. PHYSICAL EXAMINATION: VITAL SIGNS: Afebrile, pulse 96, blood pressure 140/80, respirations 20, saturation 91% on 4 liters nasal cannula. GENERAL: Patient is awake, alert, no apparent distress. LUNGS: Decent air entry. There is no prolonged expiratory phase. Rhonchi are present. She has a h ed time clearing it. It is loudest over the right upper sternal border. HEART: Normal rate, regular. ABDOMEN: Soft, nontender, nondistended. Bowel sounds are positive. MUSCULOSKELETAL: No cyanosis or clubbing. There is trace pitting in the bilateral lower extremities . NEUROLOGIC: Grossly nonfocal. ASSESSMENT: 1. Acute hypoxic respiratory failure. 2. Healthcare-associated pneumonia, likely postobstructive. 3. Severe sepsis, resolving. 4. Non-small cell lung cancer, stage 4. 5. Chronic obstructive pulmonary disease with acute exacerbation, improving. DISCUSSION AND PLAN: We will continue her antibiotics, nebulized medications and steroids. We need to focus our efforts on mobilizing the patient recovering her lost strength. If she is able to impro ve on strength, she would likely benefit from possible debulking procedure. All discussed with Inter ventional Pulmonology moving forward.
--- NOTE | 2017-12-30 21:16 | PRG ---
DATE OF SERVICE: 12/30/2017 SERVICE: Pulmonary Medicine. INTERVAL HISTORY: The patient is doing fine from a respiratory standpoint. Overnight, she had a goo d evening. Whenever she lies down, she feels more crud in the right side of her chest. As such, she has found it easier for her to sleep in a recumbent position. She denies any current fevers or chil ls. She continues to have a cough and occasionally is bringing up yellow sputum. PHYSICAL EXAMINATION: VITAL SIGNS: Afebrile, pulse 89, blood pressure 140/79, respirations 24, saturation 92% on 4 liters nasal cannula. GENERAL: Patient is awake, alert, no apparent distress. LUNGS: Decent air entry with rhonchi present. There is no prolonged expiratory phase or wheezing. HEART: Normal rate, regular. ABDOMEN: Soft, nontender, nondistended. Bowel sounds are positive. MUSCULOSKELETAL: No cyanosis or clubbing. There is no pitting in the bilateral lower extremities. NEUROLOGIC: Grossly nonfocal. ASSESSMENT: 1. Acute hypoxic respiratory failure. 2. Healthcare-associated pneumonia, likely postobstructive. 3. Severe sepsis, resolving. 4. Non-small cell lung cancer, stage 4. 5. Chronic obstructive pulmonary disease with acute exacerbation. DISCUSSION AND PLAN: The patient was diagnosed with her lung cancer with pneumonia. After that, she did not regain her full strength. She was then hospitalized for resection of the brain tumor. This got her a little weaker and she failed to recover fully. She is now back in the hospital for a thir d time and is now weaker. If she continues to have recurrent setbacks and were episodes moving forwa rd, she will never be a candidate for chemotherapy or radiation therapy. These things were previousl y planned, but are now put on hold. I would like for her to go out on a longer course of antibiotics for the next 3-4 weeks. In the meantime, we will make an attempt to refer her out to Interventional Pulmonology, so that they can consider an NG tube. Endobronchial procedure that could potentially p revent the next obstructive pneumonia from occurring. I would like the chance to discuss this with h er prior to her discharge in the morning. Overall, however, I think the patient is stable for transi tion out of the hospital. Pulmonary will continue to follow up for the time being.
[2017-12-30] MEDS: Calcium Carbonate 500 MG ChewTAB PO PRN (21:47)
[2017-12-30] MEDS: Nicotine 14 MG PATCH TD SCH (21:49)
[2017-12-31] MEDS: Calcium Carbonate 500 MG ChewTAB PO PRN ×2 (02:48→09:02)
[2017-12-31] MEDS: Levothyroxine Sodium 100 MCG TAB PO SCH (06:13)
--- NOTE | 2017-12-31 06:17 | PDOC.FM ---
- Subjective Subjective: Pt seen at bedside in NAD. BERNADINE overnight. Pt did have one episode of N/V that resolved with zofran. Otherwise, pt has no complaints. - Objective MAR Reviewed: Yes Vital Signs & Weight: Vital Signs (12 hours) Temp Pulse Resp BP BP Pulse Ox 12/31/17 02:35 101 H 20 12/31/17 00:40 95 16 117/66 98 12/30/17 22:45 92 16 92 L 12/30/17 20:30 98.1 F 92 16 92 L 12/30/17 20:15 144/62 H 12/30/17 19:12 100 22 H 12/30/17 19:05 98.1 F 89 24 H 140/79 92 L Weight Admit Weight 89.099 kg Weight 73.437 kg Most Recent Monitor Data Heart Rate from ECG 103 NIBP 120/74 NIBP BP-Mean 97 Respiration from ECG 24 SpO2 100 I&O: 12/29/17 12/30/17 12/31/17 06:59 06:59 06:59 Intake Total 980 2600 1040 Output Total 4175 1400 100 Balance -3195 1200 940 Result Diagrams: 12/28/17 05:25 12/28/17 05:25 <Josh Vick - Last Filed: 12/31/17 09:10> - Objective Vital Signs & Weight: Vital Signs (12 hours) Temp Pulse Resp BP Pulse Ox 12/31/17 10:00 97 20 12/31/17 08:20 98.8 F 96 20 124/69 92 L 12/31/17 08:00 98.8 F 96 20 92 L 12/31/17 06:48 94 20 94 L 12/31/17 06:30 94 20 94 L 12/31/17 02:35 101 H 20 12/31/17 00:40 95 16 117/66 98 Weight Admit Weight 89.099 kg Weight 73.437 kg Most Recent Monitor Data Heart Rate from ECG 103 NIBP 120/74 NIBP BP-Mean 97 Respiration from ECG 24 SpO2 100 I&O: 12/30/17 12/31/17 01/01/18 06:59 06:59 06:59 Intake Total 2600 1040 Output Total 1400 100 Balance 1200 940 Result Diagrams: 12/28/17 05:25 12/28/17 05:25 <Christiano Garner - Last Filed: 12/31/17 11:36> Phys Exam - Physical Examination Constitutional: NAD HEENT: moist MMs, sclera anicteric Respiratory: no wheezing bilateral rhonchi Cardiovascular: RRR, no significant murmur Gastrointestinal: soft, non-tender Musculoskeletal: no edema, pulses present Neurological: non-focal, moves all 4 limbs Psychiatric: normal affect, A&O x 3 <Nicanor,Josh Kong - Last Filed: 12/31/17 09:10> Dx/Plan (1) Acute respiratory failure with hypoxia Code(s): J96.01 - ACUTE RESPIRATORY FAILURE WITH HYPOXIA Status: Acute (2) Sepsis Code(s): A41.9 - SEPSIS, UNSPECIFIED ORGANISM Status: Resolved QualifierTitle: Sepsis type: sepsis due to unspecified organism Qualified Code(s): A41.9 - Sepsis, unspecified organism (3) Pneumonia Code(s): J18.9 - PNEUMONIA, UNSPECIFIED ORGANISM Status: Acute QualifierTitle: Pneumonia type: due to unspecified organism Laterality: right Lung location: upper lobe of lung Qualified Code(s): J18.1 - Lobar pneumonia, unspecified organism (4) Metastatic squamous cell carcinoma Code(s): C79.9 - SECONDARY MALIGNANT NEOPLASM OF UNSPECIFIED SITE; C80.1 - MALIGNANT (PRIMARY) NEOPLASM, UNSPECIFIED Status: Chronic (5) Diabetes mellitus type 2 in obese Code(s): E11.69 - TYPE 2 DIABETES MELLITUS WITH OTHER SPECIFIED COMPLICATION; E66.9 - OBESITY, UNSPECIFIED Status: Chronic (6) HLD (hyperlipidemia) Code(s): E78.5 - HYPERLIPIDEMIA, UNSPECIFIED Status: Chronic QualifierTitle: Hyperlipidemia type: unspecified Qualified Code(s): E78.5 - Hyperlipidemia, unspecified (7) Hypertension Code(s): I10 - ESSENTIAL (PRIMARY) HYPERTENSION Status: Chronic QualifierTitle: Hypertension type: essential hypertension Qualified Code( s): I10 - Essential (primary) hypertension (8) Tobacco abuse Code(s): Z72.0 - TOBACCO USE Status: Chronic (9) Hypothyroidism Code(s): E03.9 - HYPOTHYROIDISM, UNSPECIFIED Status: Chronic QualifierTitle: Hypothyroidism type: unspecified Qualified Code(s): E03.9 - Hypothyroidism, unspecified - Plan Plan: Hospital Day #10 1. Acute Hypoxic Respiratory Failure, resolving - 2/2 left lower lobe pneumonia with contributing right upper lobe atelectasis - pulmonology is following, recs greatly appreciated - Extubated 12/24/17. Maintaining adequate O2 saturation on nasal cannula at 4L - Fluids - 1/2NS @KVO - net I/O positive over last day but without measurable indwelling gallardo catheter - pt able to ambulate with PT and use bedside commode with assist 2. Pneumonia, likely postobstructive - Originally covered for HAP due to recent hospitalization with vancomycin, levaquin, Zosyn - Vancomycin stopped 12/24 - Levaquin, Zosyn stopped 12/30 and transitioned to oral Augmentin - pt will likely continue abx course for 3-4 weeks per pulmonology 3. Sepsis, resolved - 2/2 #2 - No longer meets sepsis criteria - Continue antibiotics 4. 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 Dean and Samantha Jimenez remotely following - Dr. Jiménez notes pt may begin treatment when over acute PNA 5. DM2 - Glipizide reduced to 2.5 mg due to hypoglycemia on 12/26. No further episodes of hypoglycemia - Accuchecks, SSI 6. HTN - Home meds held. Patient normotensive 7. HLD - Home statin held. Unlikely to benefit from statin during hospitalization 8. Tobacco Abuse 9. Bipolar Disorder - Home meds 10. Hypothyroidism - Home meds PPX: Pepcid and Lovenox Disposition: Pt doing well and working more with PT. Placement pending at inpatient rehab. Pulmonology recommendations greatly appreciated. Continue to monitor and likely discharge if placement approved. <Josh Vick - Last Filed: 12/31/17 09:10> Attending Addendum - Attending Addendum Date/Time: 12/31/17 4236 I personally evaluated the patient and discussed the management with Dr. Vick. I agree with the History, Examination, Assessment and Plan documented above with any addition or exceptions noted below. Patient reports feeling well today. She has been accepted for inpatient rehab and will be discharged today. Her O2 requirement has come down some, and reports less dyspnea. Continue oral abx and steroids on discharge. She will follow up with Pulm and Onc as an outpatient. <Christiano Garner - Last Filed: 12/31/17 11:36>
[2017-12-31] MEDS ORDERED: predniSONE 20 MG TAB PO SCH (08:00)
[2017-12-31 08:21] VITALS: BP 124/69; TEMP 98.8
[2017-12-31] MEDS: Acetaminophen 325 MG TAB PO PRN (09:02)
[2017-12-31] MEDS: glipiZIDE 5 MG TAB PO SCH ×2 (09:02→17:22)
[2017-12-31] MEDS: Enoxaparin Sodium 40 MG/0.4 ML SYRINGE SC SCH (09:02)
[2017-12-31] MEDS: Amoxicillin/Potassium Clav 875 MG TAB PO SCH (09:03)
--- NOTE | 2017-12-31 15:44 | PRG ---
DATE OF SERVICE: 12/31/2017 SERVICE: Pulmonary Medicine. INTERVAL HISTORY: The patient is doing fine from a respiratory standpoint. She still gets choked up in the middle of the night from time to time. Otherwise, there has been no interval change to her c ondition. She denies any current fevers or chills. She continues to have a cough, but has a hard ti me bringing up crud. PHYSICAL EXAMINATION: VITAL SIGNS: Afebrile, pulse 96, blood pressure 124/69, respirations 20, and saturation 92% on 3.5 l iters nasal cannula. GENERAL: The patient is awake and alert. No apparent distress. LUNGS: Rhonchi are present. There are lateral on the right compared to left. There is a prolonged inspiratory phase and expiratory phase. No wheezing or crackles are appreciated. HEART: Normal rate, regular. ABDOMEN: Soft, nontender, nondistended. Bowel sounds are positive. MUSCULOSKELETAL: No cyanosis or clubbing. No pitting in the bilateral lower extremities. NEUROLOGIC: Grossly nonfocal. ASSESSMENT: 1. Acute hypoxic respiratory failure, improving. 2. Healthcare-associated pneumonia, postobstructive x2. 3. Severe sepsis, resolving. 4. Squamous cell carcinoma of the lung, stage 4. 5. Chronic obstructive pulmonary disease with acute exacerbation. DISCUSSION AND PLAN: The patient is really doing quite remarkable from a respiratory standpoint. Th at being said, with each hospital stay over the last month and a half, she has gotten subsequently we millie. She is not a candidate for chemotherapy or radiation therapy based on what Oncology is suggest ing because of her increasing weakness. They had previously planned to do so, but would like her to demonstrate improved strength. She is going to a rehabilitation center for the next week or two. Ul timately, this is not going to be a successful strategy unless we address the underlying endobronchia l lesion, which is creating her frequent exacerbations. I am going to send her to [place], [place] with Charlie Durham M.D. He is an interventional supervisor home energy consultant that may be able to improve the way the ai rflows through the right lung. We have faxed a referral over to [facility] today. That appoint ment will be scheduled prior to discharge from the hospital. I will fax some records over to the [facility] that was provided to us ([phone]). We will burn a copy of the disk and try to mail it over to [facility], and additionally give the patient herself a copy of the disk so that she can brin g it to that appointment. It is my understanding the patient is ready for discharge today and I thin k that is perfectly reasonable to send her out. She is going to work on reclaiming her lost strength as less than 1 month ago, she would have been a good candidate for chemotherapy and radiation.
--- NOTE | 2017-12-31 18:57 | DIS-2 ---
DATE OF ADMISSION: 12/22/2017 DATE OF DISCHARGE: 12/31/2017 RESIDENT: Josh Vick M.D. ADMITTING ATTENDING: Marcello Matthew M.D. DISCHARGE ATTENDING: Christiano Garner M.D. CONSULTATIONS: 1. Pulmonology, Dr. Flavio Ribeiro and Dr. Melquiades Ford. 2. Oncology, Dr. Judith Dean. 3. Radiation Oncology, Dr. Jiménez. 4. Case management. 5. Physical, occupational and speech therapy. PROCEDURES PERFORMED: 1. Chest x-ray performed on 12/22/2017 showed a mass-like density in the right hilar region with a wedge-shaped area of increased density of the right upper lobe and right lung apex related to post-obstructive atelectasis and increased interstitial and patchy densities in the left lung base related to aspiration pneumonitis or developing pneumonia. 2. Repeat chest x-ray on 12/22/2017 showed interval placement of an endotracheal tube at the level of the alfred and NG tube traced into the stomach. 3. Abdominal x-ray performed on 12/22/2016 showed NG tube in the correct position. 4. Repeat chest x-ray on 12/23/2017 showed right upper lobe collapse suggesting mass. 5. Repeat chest x-ray on 12/24/2017 showed a stable finding. 6. Repeat chest x-ray on 12/28/2017 showed normal heart size, resolution of right upper lobe atelectatic changes, removal of endotracheal and nasogastric tubing and pulmonary vascular congestion without large effusions. PRIMARY DIAGNOSES: 1. Acute hypoxic respiratory failure secondary to postobstructive pneumonia in the setting of stage IV squamous cell carcinoma of the right lung, resolving. 2. Stage IV squamous cell carcinoma of the right lung with metastases to the brain, status post craniotomy and left frontal resection. 3. Acute kidney injury, resolved. 4. Anion gap metabolic acidosis, resolved. SECONDARY DIAGNOSES: 1. Hypertension. 2. Diabetes mellitus type 2. 3. Hyperlipidemia. 4. Hypothyroidism. 5. Bipolar disorder. 6. Chronic obstructive pulmonary disease. DISCHARGE MEDICATIONS: 1. DuoNebs scheduled t.i.d. 2. DuoNebs q.4 hours p.r.n. 3. Pantoprazole 40 mg p.o. daily. 4. Ondansetron ODT 4 mg p.o. q.6 hours p.r.n. 5. Augmentin 875 mg p.o. b.i.d. for 4 weeks. 6. Glipizide 2.5 mg p.o. b.i.d. a.c. 7. Nicoderm patch daily. 8. Flonase p.r.n. 9. Levothyroxine 100 mcg p.o. q.a.m. 10. Seroquel 600 mg p.o. at bedtime. 11. Sertraline 50 mg p.o. q.a.m. HISTORY OF PRESENT ILLNESS AND HOSPITAL COURSE: The patient is a very pleasant 62-year-old -[place] female with a known history of recently diagnosed stage IV squamous cell carcinoma of the lung who presented with a worsening cough and shortness of breath. On initial presentation to the Emergency Department, a FULL CODE status was verified and due to concern over the inability to protect her airway, the patient was intubated by ER physicians. The patient was subsequently admitted to the critical care unit and initially started on vancomycin, Zosyn, Levaquin, and sedation protocol. The patient was monitored in the critical care unit and eventually was able to be weaned off sedation and extubated on 12/26/2017. The patient was initially treated like a hospital-acquired pneumonia and simultaneous COPD exacerbation with the above antibiotics, breathing treatments , and steroids. The patient did show improvement and was eventually as outlined above weaned off the ventilator and successfully extubated. Zosyn and Levaquin were discontinued on 12/30/2017 and the patient was transitioned to oral Augmentin for continued treatment of her postobstructive and possible aspiration pneumonia. After extubation, the patient was stable on oxygen supplementation via nasal cannula. As her breathing status improved, she was able to be weaned down from 7 liters nasal cannula down to 4 liters on the day of discharge. The patient was extremely motivated to continue working with physical therapy and increase her conditioning and strength. Palliative care, case management, and multiple therapists met with the patient and it was deemed that the patient was a good candidate for inpatient rehabilitation. Regarding the patient's respiratory plan of care, the case was discussed with the patient's ems manager, Dr. Melquiades Ford on the day of discharge. The patient was referred to an interventional ems manager at [facility] in [place] in 3-4 weeks. The patient is to be continued on oral antibiotics until this time. Please note that if the patient is to return to the hospital, she will likely be stabilized and then transferred to [facility] for definitive care, per pulmonology. The patient's oncology team evaluated the patient while hospitalized and determined that she would not be a candidate for chemotherapy until recovering from this pneumonia and may be a candidate for treatment in the future. The patient's hospital course was otherwise uncomplicated. DISPOSITION: Guarded. DISCHARGE INSTRUCTIONS: 1. Location: [facility]. 2. Diet: Heart healthy with consistent carbohydrate. 3. Activity: As tolerated with the assistance of physical, occupational, and respiratory physiotherapy. 4. Followup: The patient was instructed to follow up with her primary care physician, Dr. Brian Salinas. The patient was instructed to follow up with her interventional ems manager, Dr. Durham at [facility] at the end of December. The patient was also instructed to follow up with Dr. Melquiades Ford. Greater than 30 minutes was spent preparing and coordinating this discharge. ALISA
[2018-01-06] MEDS ORDERED: predniSONE 20 MG TAB PO SCH (08:00)
== END 2017-12-31 20:06 | DRG 871 ==
LOC: ERS 13:10 → CCU 15:34 → ONC 12-27 14:09
PROVIDERS: ADMIT Student in an Organized Health Care Education/Training Program; ATTEND Student in an Organized Health Care Education/Training Program
PROC: 0BH17EZ Insertion of Endotracheal Airway into Trachea, Via Natural or Artificial Opening (ICD-10-PCS; principal; 2017-12-22)
PROC: 5A1945Z Respiratory Ventilation, 24-96 Consecutive Hours (ICD-10-PCS; 2017-12-22)
DX: A41.9 Sepsis, unspecified organism (principal); J96.01 Acute respiratory failure with hypoxia; J18.9 Pneumonia, unspecified organism; N17.9 Acute kidney failure, unspecified; E87.2 Acidosis; C79.31 Secondary malignant neoplasm of brain; J44.0 Chronic obstructive pulmonary disease with (acute) lower respiratory infection; C34.11 Malignant neoplasm of upper lobe, right bronchus or lung; E83.42 Hypomagnesemia; J44.1 Chronic obstructive pulmonary disease with (acute) exacerbation; Z51.5 Encounter for palliative care; R65.20 Severe sepsis without septic shock; Y95 Nosocomial condition; I10 Essential (primary) hypertension; E11.9 Type 2 diabetes mellitus without complications; E78.5 Hyperlipidemia, unspecified; E03.9 Hypothyroidism, unspecified; F31.9 Bipolar disorder, unspecified; E66.9 Obesity, unspecified; Z68.25 Body mass index [BMI] 25.0-25.9, adult; F17.210 Nicotine dependence, cigarettes, uncomplicated; Z79.84 Long term (current) use of oral hypoglycemic drugs; Z79.899 Other long term (current) drug therapy
CPT/HCPCS: 31500; 36415; 36416; 51702; 71045; 74018; 80048; 80053; 80202; 81003; 81015; 82553; 82805; 83605; 83735; 83880; 84484; 85025; 87040; 87077; 87086; 87186; 93005; 94002; 94003; 94640; 94667; 94668; 96365; 96366; 96368; 96375; 99292; A4216; G8978-GP-CN; G8979-GP-CK; G8987-GO-CK; G8988-GO-CI; G8996-GN-CJ; G8997-GN-CI; J0131; J1650; J1940; J1956; J2060; J2270; J2405; J2543; J2704; J2920; J2930; J3370; J3475; J3480; J7050; J7506; J7620; S0028

== ENCOUNTER 2018-01-24 11:36 | Emergency (ER) | payer MEDICARE ==
[2018-01-24 12:38] LABS: #Eosinphils 0.1 thou/uL (0.0-0.7); #Lymphocytes 3.3 thou/uL (1.20-3.40); #Monocytes 1.2 thou/uL (0.11-0.59); #Neutrophils 7.2 thou/uL (1.40-6.50); %Basophils 0.3 % (0.0-1.0); %Eosinophils 0.8 % (0.0-10.0); %Lymphocytes 27.6 % (21.0-51.0); %Neutrophils 61.3 % (42.0-75.0); Mean Corpuscular HGB CONC 32.3 g/dL (32.0-36.0); Mean Corpuscular Hemoglobin 29.3 pg (27.0-31.0); Mean Corpuscular Volume 90.7 fl (81.0-99.0); Mean Platelet Volume 7.1 fL (7.4-10.4); Platelet Count 504 thou/uL (130-400); RBC Distribution Width 14.6 % (11.5-14.5); Red Blood Cell (RBC) Count 4.09 mill/uL (4.20-5.40); White Blood Cell (WBC) Count 11.8 thou/uL (4.8-10.8)
[2018-01-24 12:51] LABS: INR-International Normal Ratio 1.1
[2018-01-24 12:52] LABS: PTT 33.2 SEC (22.9-36.1)
[2018-01-24 12:56] LABS: ALT (SGPT) 57 U/L (8-55); AST (SGOT) 53 U/L (5-34); Albumin 3.4 g/dL (3.5-5.0); Alkaline Phosphatase 187 U/L (40-150); Anion Gap 15 mmol/L (10-20); BUN (Urea Nitrogen) 12 mg/dL (9.8-20.1); Bilirubin, Total 0.4 mg/dL (0.2-1.2); Calc. Creatinine Clearance 0 mL/min (70-130); Carbon Dioxide 20 mmol/L (22-29); Chloride 101 mmol/L (98-107); Estimated GFR-MDRD 67; Globulin 4.8 g/dL (2.4-3.5); Glucose 175 mg/dL (70-105); Lipase 21 U/L (8-78); Magnesium 1.7 mg/dL (1.6-2.6); Potassium 4.6 mmol/L (3.5-5.1); Protein, Total 8.2 g/dL (6.0-8.3); Sodium 131 mmol/L (136-145)
[2018-01-24 12:58] LABS: Calcium 14.8 mg/dL (7.8-10.44)
[2018-01-24 13:01] LABS: CKMB 0.7 ng/mL (0-6.6); Troponin I Less than 0.010 ng/mL (< 0.028)
--- NOTE | 2018-01-24 13:08 | RAD ---
CHEST 1 VIEW: HISTORY: Chest pain. COMPARISON: Chest radiograph 12/28/17. FINDINGS: There is abrupt cutoff of the right mainstem bronchus. Complete whiteout right hemithorax. There is consolidation in the left lung base. IMPRESSION: 1. Complete whiteout right hemithorax with occlusion of the right mainstem bronchus, likely occludin g malignant process with combination of atelectasis and effusion. 2. Left lower lobe airspace opacity may reflect infection. Bronchoscopy is warranted. POS: CARRILLO
[2018-01-24 13:34] LABS: Bilirubin Small (Negative); Blood, Urine Negative (Negative); Clarity TURBID (Clear); Glucose, Urine (Dipstick) Negative (Negative); Leukocyte Moderate (Negative); Nitrite Negative (Negative); Protein, Urine (Dipstick) Trace mg/dL (Neg-Trace); Specific Gravity, Urine 1.025 (1.002-1.036); Urobilinogen 0.2 mg/dL (0.2-1.0)
[2018-01-24 13:40] LABS: Pathc Cast-AUWi Flag 7.55 (0-2.49); Yeast-AUWi Flag 136.3 (0-25.0)
[2018-01-24 14:00] LABS: RBC/HPF 0-3 HPF (0-3)
[2018-01-24 14:01] LABS: Bacteria/HPF 1+ HPF (None Seen); Crystals/HPF 2+ CA OXALATE HPF (Negative); Hyaline Casts/LPF 7-10 HYALINE CAST LPF (0-3 Hyaline); Manual Microscopic Reviewed? No Path Casts Seen; Yeast-All Forms None Seen HPF (None Seen)
--- NOTE | 2018-01-24 14:04 | CT ---
CTA THORAX WITH CONTRAST: (Computed Tomographic Angiography, chest(noncoronary) with contrast material, and image postprocessin g) (PE protocol) DATE: 01/24/18. TIME: 1:37 p.m. HISTORY: A 62-year-old female with dyspnea, cough, atrial fibrillation, tachycardia, and cardiac dysrhythmia. TECHNIQUE: IV injection of iodinated contrast: Isovue. Scan acquisition timing attempted to coincide with iodinated contrast bolus reaching maximal density in pulmonary arteries. 3D MIP reconstructions. FINDINGS: On the 12-09-17 CT angiogram of the chest there was obstructive atelectasis of the entire right upper lobe, but not the right middle lobe or right lower lobe at that time. Now, however, there is complete occlusion of the right mainstem bronchus at its origin, resulting in total atelectasis of the entire right lung, with no aerated portions. The atelectatic right lung is circumferentially surrounded by a right-sided pleural effusion that occupies approximately 15% volume of the right hemithoracic cavi ty. There is soft tissue density tumor material filling the subcarinal region, contiguous with soft tissue density tumor material infiltrating the pretracheal region and AP window. Multiple abnormal, mildly and moderately enlarged discrete mediastinal lymph nodes are visualized in the prevascular spa ce, on the left, at midline, and in the right upper mediastinum also. There is no pulmonary thromboe mbolism. No thoracic aortic aneurysm or dissection. There is mild to moderate circumferential narro wing of the left mainstem bronchus due to the extrinsic compression by the mediastinal infiltrative m ass. There is no narrowing of the distal portion of the left mainstem bronchus, or of its branches. There are ground-glass interstitial densities in a somewhat heterogeneous pattern throughout much of the left upper lobe, left lower lobe (especially the base), and lingula. No destructive osseous les ion identified. IMPRESSION: 1. 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 A component of this is associat ed with complete obstruction of the right mainstem bronchus, which results in total atelectasis of th e entire right lung. 2. Circumferential small right pleural effusion. 3. No pulmonary thromboembolism. 4. Nonspecific ground-glass densities heterogeneously in the left lung. One possibility is mild pul monary interstitial edema. 5. No pulmonary thromboembolism. jn[] POS: CARRILLO
--- NOTE | 2018-01-30 20:42 | EKG ---
Test Reason : Blood Pressure : / mmHG Vent. Rate : 155 BPM Atrial Rate : 150 BPM P-R Int : 000 ms QRS Dur : 070 ms QT Int : 270 ms P-R-T Axes : 000 038 026 degrees QTc Int : 433 ms Atrial fibrillation with rapid ventricular response Abnormal ECG Confirmed by JACKLYN COLE ([id number]), visual effects editor MONICA ABDULLAHI ([id number]) on 01/30/2018 8:41:22 PM Referred By: Confirmed By:JACKLYN COLE
== END 2018-01-24 17:53 | disposition short-term general hospital (02) ==
LOC: ERS 11:36
DX: J90 Pleural effusion, not elsewhere classified (principal); N39.0 Urinary tract infection, site not specified; R91.8 Other nonspecific abnormal finding of lung field; J43.9 Emphysema, unspecified; E11.9 Type 2 diabetes mellitus without complications; E78.5 Hyperlipidemia, unspecified; I10 Essential (primary) hypertension; F32.9 Major depressive disorder, single episode, unspecified; Z87.891 Personal history of nicotine dependence; Z79.51 Long term (current) use of inhaled steroids; Z79.84 Long term (current) use of oral hypoglycemic drugs; Z79.899 Other long term (current) drug therapy; Z85.841 Personal history of malignant neoplasm of brain
CPT/HCPCS: 71045; 71275; 80053; 81003; 81015; 82553; 83690; 83735; 84484; 85025; 85610; 85730; 87086; 93005; 96361; 96374; J0696; J3490